=== PATIENT | male | born 1940 | race Hispanic/Latino ===

== ENCOUNTER 2017-09-27 00:35 | Observation (INO) | payer MEDICARE ==
[~2017-09-27] VITALS: Ht 172.7 cm; Wt 95.3 kg
[~2017-09-27 00:35] MED LIST: AMIODARONE HCL200 MG; AMIODARONE HCL200 MG PO; ASPIRIN81 MG; CARVEDILOL12.5 MG PO; CARVEDILOL6.25 MG PO; CEFTIN250 MG PO; COUMADIN2.5 MG PO; COZAAR25 MG PO; FERROUS SULFAT325 MG; FLOMAX0.4 MG PO; FOLIC ACID; HUMULIN N100 UNITS/; IRON159 MG; LASIX40 MG PO; NIFEDICAL XL60 MG PO; NIFEDIPINE ER30 M1 PO; NIFEDIPINE ER60 M1; NORVASC5 MG PO; NOVOLIN R100 UNIT/1 SQ; PANTOPRAZOLE SO40 MG PO; PROCRIT10000 UNIT; SODIUM POL15 GM/60 M; VENOFER IV; VITAMIN B-121000 MCG PO; WARFARIN SODIUM2 MG PO
[2017-09-27] MEDS ORDERED: ASPIRIN 81 MG CHEW TAB PO ONE (00:45)
[2017-09-27 01:04] LABS: BASOPHILS # (AUTO) 0.1 (0.0-0.1); BASOPHILS % 0.7 % (0.0-1.0); BILIRUBIN,URINE NEGATIVE (NEGATIVE); EOSINOPHILS # (AUTO) 0.4 (0.0-0.4); EOSINOPHILS % 4.1 % (0.0-6.0); HEMATOCRIT 28.6 % (38.2-49.6); HEMOGLOBIN 10.1 g/dL (14.0-18.0); KETONES,URINE NEGATIVE (NEGATIVE); LEUKOCYTE ESTERASE ,URINE 2+ (NEGATIVE); LYMPHOCYTES # (AUTO) 0.5 (1.0-3.2); LYMPHOCYTES % 5.6 % (18.0-39.1); MEAN CORPUSCULAR HEMOGLOBIN 31.3 pg (28-32); MEAN CORPUSCULAR HGB CONC 35.3 g/dL (31-35); MEAN CORPUSCULAR VOLUME 88.5 fL (81-99); MONOCYTES # (AUTO) 0.8 (0.2-0.8); MONOCYTES % 8.9 % (4.4-11.3); NEUTROPHILS # (AUTO) 7.1 (2.1-6.9); NEUTROPHILS % 80.4 % (38.7-80.0); NITRITE,URINE NEGATIVE (NEGATIVE); PLATELET COUNT 234 x10e3/uL (140-360); RED BLOOD COUNT 3.23 x10e6/uL (4.3-5.7); RED CELL DISTRIBUTION WIDTH 12.9 % (11.7-14.4); URINE UROBILINOGEN 0.2 mg/dL (0.2 - 1)
[2017-09-27 01:05] LABS: CLARITY,URINE CLOUDY (CLEAR); COLOR,URINE YELLOW (YELLOW); PROTEIN,URINE DIPSTICK 2+ (NEGATIVE)
[2017-09-27 01:14] LABS: INR 0.91; PARTIAL THROMBOPLASTIN TIME 30.1 seconds (23.8-35.5); PROTHROMBIN TIME 12.7 seconds (11.9-14.5)
[2017-09-27 01:16] LABS: BACTERIA,URINE MANY /HPF; EPITHELIAL CELLS,URINE FEW /LPF; WBC,URINE (MAN) >50 /HPF (0-5)
--- NOTE | 2017-09-27 01:24 | Diagnostic Imaging Report ---
CHEST 2 VIEWS, Technique: CHEST 2 VIEWS Comparison: 07/23/2017 Clinical history: \S\PALPITATIONS, H/O AFIB CHF DISCUSSION: Stable mild cardiomegaly. Likely several calcified lung granulomas. No consolidation or edema. No pleural effusion or pneumothorax. IMPRESSION: Cardiomegaly without overt edema or consolidation. Signed by: Dr Micaela Huynh MD on 09/27/2017 1:55 AM
[2017-09-27 01:25] LABS: ALBUMIN 3.4 g/dL (3.5-5.0); ALBUMIN/GLOBULIN RATIO 0.7 (0.8-2.0); CALCIUM 8.1 mg/dL (8.4-10.2); MAGNESIUM 1.9 MG/DL (1.3-2.1)
[2017-09-27 01:31] LABS: CREATINE KINASE MB 2.5 ng/mL (0.00-5.00); TROPONIN I 0.024 ng/mL (0-0.300)
[2017-09-27] MEDS ORDERED: CEFTRIAXONE SOD 1 GM in WATER STERILE 10ML VIAL 10 ML IV STA (02:11)
[2017-09-27] MEDS ORDERED: CEFTRIAXONE SOD 1 GM VIAL IV SCH (02:15)
[2017-09-27] MEDS ORDERED: CEFTRIAXONE SOD 1 GM VIAL IV ONE (02:30)
[2017-09-27] MEDS ORDERED: DEXTROSE 50% SYRINGE 50 ML IV PRN (03:45)
[2017-09-27 04:26] VITALS: BP 145/78
[2017-09-27 05:06] VITALS: BP 145/63
[2017-09-27] MEDS: INSULIN REGULAR, HUMAN 100 UNIT/1 ML 3ML VIAL SQ SCH ×4 (07:30→20:29)
[2017-09-27 08:00] VITALS: BP 145/67
[2017-09-27] MEDS ORDERED: SODIUM CHLORIDE 0.9% 1000ML 1,000 ML IV SCH (08:00)
[2017-09-27] MEDS: AMIODARONE HCL 200 MG TAB PO SCH (08:23)
[2017-09-27] MEDS: CARVEDILOL 12.5 MG TAB PO SCH ×2 (08:24→16:58)
[2017-09-27] MEDS ORDERED: ASPIRIN 81 MG ENTERIC COATED PO SCH (09:00)
[2017-09-27] MEDS ORDERED: FUROSEMIDE 40 MG TAB PO SCH (09:00)
[2017-09-27 09:38] LABS: TROPONIN I 0.019 ng/mL (0-0.300)
--- NOTE | 2017-09-27 10:35 | History and Physical ---
He is a 76-year-old male patient of mine who presented to the emergency room with a complaint of palpitation. HISTORY OF PRESENT ILLNESS: Mr. Emmett Cuevas is a 76-year-old male patient with a significant medical history of atrial fibrillation, diabetes mellitus, hypertension, hypertensive heart disease, chronic renal failure for right nephrectomy and anemia of chronic disease and history of intermittent GI bleed. Presented to the emergency room with a complaint of sudden onset palpitation. . ALLERGIES: MEPERIDINE. PAST MEDICAL HISTORY: Diabetes mellitus, hypertension, atrial fibrillation, coronary artery disease. MEDICATIONS: See from the list. FAMILY HISTORY: Diabetes, hypertension. REVIEW OF SYSTEMS: Palpitations and dizziness. PHYSICAL EXAMINATION GENERAL: He is an elderly male patient lying in bed. Not in acute distress. VITAL SIGNS: Temperature 97, pulse rate 73, blood pressure 145/67, respiration 18. HEENT EXAM: Normocephalic, atraumatic. NECK: No JVD. No lymphadenopathy. LUNGS: Bilateral equal air entry. Occasional basal rales present. HEART: S1, S2, regular. Systolic murmur present. ABDOMEN: Soft, bowel sounds are present. NEUROLOGIC: No focal neurological deficit. ADMITTING PATIENT DIAGNOSES: 1. Atrial fibrillation with rapid ventricular rate. 2. Hyponatremia. 3. Acute on chronic renal failure. 4. Diabetes mellitus. 5. Hypertension. 6. Hypertensive heart disease. LABS: Patient's sodium level is 120, creatinine 5, hemoglobin 10.1. PLAN: Patient was admitted with the above diagnoses. Will diurese patient with Lasix. Will obtain cardiology and nephrology consults. Patient will be monitored in the telemetry unit under observation. Job#: [id number] HERNANDEZ
--- NOTE | 2017-09-27 11:33 | Diagnostic Imaging Report ---
PROCEDURE:US RETROPERITONEAL ( KIDNEY ). COMPARISON:[facility], US, US RETROPERITONEAL ( KIDNEY )., 07/24/2017, 11:31. INDICATIONS:Elevated Creatinine TECHNIQUE: Correa scale and color Doppler ultrasound kidneys FINDINGS: Right: Nephrectomy. Left: 13.1 x 6.6 x 5.7 cm. Cortical thickness 2 cm The left kidney demonstrates normal parenchymal echogenicity and contour. No hydronephrosis. Normal urinary bladder. Prostate volume 30 mL. CONCLUSION: 1. No acute abnormality of the left kidney. 2. Right nephrectomy. Dictated by: Jeff Guerrero M.D. on 09/27/2017 at 11:40 Electronically approved by: Jeff Guerrero M.D. on 09/27/2017 at 11:40
[2017-09-27 12:06] VITALS: BP 157/72
[2017-09-27 15:58] VITALS: BP 145/77
--- NOTE | 2017-09-27 16:33 | Consultation ---
DATE OF CONSULTATION: September 27, 2017 CARDIOLOGY CONSULTATION REQUESTING PHYSICIAN: Dr. Luiz Andrade. REASON FOR CONSULTATION: Paroxysmal AFib. HISTORY OF PRESENT ILLNESS: This is a 76-year-old male that presented with palpitation. According to the patient, he started having palpitation and shortness of breath today that he decided to come into the emergency room for evaluation. He has a history of AFib, had a SHIRA with cardioversion in January, and he went back to normal sinus rhythm. He was also on Coumadin, which was stopped due to GI bleed and anemia. He stopped taking his amiodarone, and he goes in AFib and back to sinus front and back. He denies any chest pain, any dizziness or diaphoresis. Troponin was negative. EKG showed AFib and normal sinus rhythm. His BNP is 1071. PAST MEDICAL HISTORY: Hypertension, diabetes, AFib, renal cancer, GI bleed, anemia. PAST SURGICAL HISTORY: Right nephrectomy and left leg surgery due to staph infection. FAMILY HISTORY: Positive for CAD. SOCIAL HISTORY: No smoking, no drinking. MEDICATIONS: See med list. ALLERGIES: HE IS ALLERGIC TO MEPERIDINE. REVIEW OF SYSTEMS: Negative except those mentioned above. PHYSICAL EXAMINATION VITAL SIGNS: Temperature 98, heart rate 77, blood pressure 157/72, respiration 18, oxygen saturation 96% on room air. GENERAL: He is morbidly obese, awake, alert, and oriented x3. HEENT: Mucous membrane moist. NECK: Supple. LUNGS: Bilaterally with decreased breath sounds. CARDIOVASCULAR: Irregular. ABDOMEN: Soft. NEUROLOGICAL: Intact. EXTREMITIES: With no edema. LABS: Sodium 128, potassium 4.0, chloride 99, CO2 17, BUN 52, creatinine 5.0, glucose 110. White blood cell 8.77, hemoglobin 10.1, hematocrit 28.6, platelet 234. PT 12.7, PTT 30.1, INR 0.91. IMPRESSION 1. Paroxysmal atrial fibrillation. 2. Chronic kidney disease. 3. Fluid overload. 4. Systolic congestive heart failure. 5. Hypertension. 6. Diabetes. 7. History of anemia. 8. Hyponatremia. ASSESSMENT/PLAN: He had a SHIRA in January with EF 35% to 40%. His heart rate fluctuates from AFib to normal sinus rhythm. Will continue amiodarone and beta dvaid. Possible anticoagulation before discharge. His BNP is 1071. Will go ahead and hold the IV fluid. Further cardiac workup pending clinical course. Thank you for this consultation. Dictated by: Jannette Hyman NP Job#: [id number] EV
[2017-09-27] MEDS: FERROUS SULFATE 325 MG TAB PO SCH (16:59)
[2017-09-27] MEDS ORDERED: NIFEDIPINE CR 30 MG TAB PO SCH (17:00)
[2017-09-27 18:28] LABS: CREATINE KINASE MB 1.7 ng/mL (0.00-5.00); TROPONIN I 0.012 ng/mL (0-0.300)
[2017-09-27] MEDS ORDERED: DEXTROSE 5%/0.45% SOD CHL 1,000 ML IV SCH (18:45)
--- NOTE | 2017-09-27 19:15 | Consultation ---
DATE OF CONSULTATION: September 27, 2017 HISTORY OF PRESENT ILLNESS: Mr. Emmett Cuevas is known to our nephrology service. Has existing history of chronic kidney disease, stage 4 and possibly 5 admitted with shortness of breath. Found to have hyponatremia. Renal consult for management of kidney failure. Currently, awake, alert and sitting up in no apparent distress. Denies any nausea, vomiting or shortness of breath. Chest x-ray shows evidence of cardiomegaly with mild increased vascular markings bilaterally and possible atelectasis. Labs show a sodium of 128, potassium 4, bicarbonate 17, creatinine 5. White count 8.77, hemoglobin 10.1. Patient's is by the bedside. He is scheduled for an AV fistula placement as an outpatient. He has had prior history of hypertension, type 2 diabetes, peripheral neuropathy, and evidence of end-organ damage due to type 2 diabetes, congestive heart failure, left ventricular hypertrophy, and diabetic nephropathy. Most recent labs show white count 5.31 with a hemoglobin 9.8. Sodium is as mentioned 128, potassium 4, bicarb 17, creatinine 5. INR 0.91. LFTs within normal limits. Also, has underlying history of atrial fibrillation. He has had prior echocardiogram. Results, I am unable to retrieve. ALLERGIES: MEPERIDINE. CURRENT MEDICATIONS: Please see MAR for details. 1. Regular insulin. 2. Pantoprazole. 3. Nifedipine 60 b.i.d. 4. Lasix 40 mg p.o. daily, which I am going to stop. 5. Ceftriaxone. 6. Aspirin. 7. Amiodarone 200 mg daily. 8. Was receiving IV normal saline, which I am going to stop at this point in time. SOCIAL HISTORY: Patient does not smoke or drink. FAMILY HISTORY: Significant for hypertension and type 2 diabetes. PHYSICAL EXAMINATION GENERAL: Awake, alert and sitting up in no apparent distress. and nurse by bedside. VITALS: At the moment, has a blood pressure of 145/77, pulse rate 98, afebrile, respiratory rate 18, oxygen saturation 98% room air. HEAD AND NECK: Cornea clear. Oral mucosa dry. LUNGS: Occasional rales in right lower zone. No clear-cut rales noted. HEART: S1 and S2 audible. ABDOMEN: Otherwise soft and nontender. LOWER EXTREMITY EXAMINATION: Shows trace ankle edema. IMPRESSION: Advanced kidney failure, most likely end-stage renal disease. Medications reviewed. Blood pressure stable. Has evidence of distal renal tubular acidosis. Will start sodium bicarbonate. Will resume gentle intravenous fluids. Discussed with the patient. Renal replacement therapy is discussed if condition does not improve and renal function does not improve with hydration and medication adjustments. He may require dialysis. Will obtain 24-hour urine for creatinine clearance and proteins. Job#: [id number] MULUGETA
[2017-09-27 20:12] VITALS: BP 137/68
[2017-09-27] MEDS: SODIUM BICARBONATE 650 MG TAB PO SCH (20:29)
[2017-09-28] MEDS ORDERED: CLONIDINE HCL 0.1 MG TAB PO PRN
[2017-09-28 00:09] VITALS: BP 196/88
[2017-09-28 01:43] VITALS: BP 187/86
[2017-09-28 04:59] VITALS: BP 195/86
[2017-09-28 05:26] VITALS: BP 135/70
[2017-09-28 06:30] LABS: BASOPHILS % 0.7 % (0.0-1.0); EOSINOPHILS # (AUTO) 0.3 (0.0-0.4); EOSINOPHILS % 4.2 % (0.0-6.0); LYMPHOCYTES # (AUTO) 0.4 (1.0-3.2); LYMPHOCYTES % 7.4 % (18.0-39.1); MEAN CORPUSCULAR HEMOGLOBIN 31.3 pg (28-32); MEAN CORPUSCULAR HGB CONC 34.5 g/dL (31-35); MEAN CORPUSCULAR VOLUME 90.9 fL (81-99); MONOCYTES # (AUTO) 0.8 (0.2-0.8); MONOCYTES % 12.9 % (4.4-11.3); NEUTROPHILS # (AUTO) 4.4 (2.1-6.9); NEUTROPHILS % 74.1 % (38.7-80.0); PLATELET COUNT 215 x10e3/uL (140-360); RED BLOOD COUNT 3.19 x10e6/uL (4.3-5.7); RED CELL DISTRIBUTION WIDTH 13.2 % (11.7-14.4)
[2017-09-28 06:59] LABS: ALBUMIN 2.8 g/dL (3.5-5.0); ALBUMIN/GLOBULIN RATIO 0.7 (0.8-2.0); ANION GAP 13.4 mmol/L (8-16); CALCIUM 8.1 mg/dL (8.4-10.2); CREATININE, SERUM 4.46 mg/dL (0.72-1.25); POTASSIUM 3.4 mmol/L (3.5-5.1)
[2017-09-28 07:18] LABS: CHOL/HDL RATIO 4.7 (3.9-4.7)
[2017-09-28 08:05] VITALS: BP 133/60
[2017-09-28] MEDS: INSULIN REGULAR, HUMAN 100 UNIT/1 ML 3ML VIAL SQ SCH (08:25)
[2017-09-28] MEDS: FERROUS SULFATE 325 MG TAB PO SCH (08:30)
[2017-09-28] MEDS: CARVEDILOL 12.5 MG TAB PO SCH (08:31)
[2017-09-28] MEDS: SODIUM BICARBONATE 650 MG TAB PO SCH (08:32)
[2017-09-28] MEDS: AMIODARONE HCL 200 MG TAB PO SCH (08:32)
[2017-09-28] MEDS ORDERED: POTASSIUM CHLORIDE 20 MEQ TAB CR PO ONE (08:45)
[2017-09-28] MEDS ORDERED: ASPIRIN 81 MG CHEW TAB PO SCH (09:00)
[2017-09-28] MEDS ORDERED: CYANOCOBALAMIN 1,000 MCG TAB PO SCH (09:00)
[2017-09-28] MEDS ORDERED: PANTOPRAZOLE SOD 40 MG TABEC PO SCH (09:00)
[2017-09-28 11:30] VITALS: BP 111/55
--- NOTE | 2017-09-28 12:30 | Discharge Summary ---
A 76-year-old male patient presented with palpitations. ADMITTING PATIENT DIAGNOSES 1. Paroxysmal atrial fibrillation with tachycardia with rapid ventricular rate. 2. Acute on chronic diastolic congestive heart failure. 3. Acute on chronic renal failure. 4. Diabetes mellitus. 5. Hypertension. 6. Hypertensive heart disease. 7. History of gastrointestinal bleed. 8. History of anemia of chronic disease. 9. History of renal cancer with previous nephrectomy. HOSPITAL COURSE: The patient was admitted with the above diagnoses. The patient was monitored in the telemetry cardiac unit and EKG was done and CO was ruled out. Cardiology and Nephrology were . On laboratory examination, patient found to have a UTI and gram negative Bacillus. Urine culture is pending. Patient needs to be referred for hemodialysis. Patient ____ outpatient to be the hemodialysis treatment by Dr. Carbajal. The patient needs to continue to follow up as outpatient with the auto body detailer and will discharge patient on amiodarone. Patient has EF of 35% to 40%. Patient has systolic CHF. Patient was started on anticoagulation in the past, but then, because of the other times he had been requiring multiple blood transfusions, anticoagulation was discontinued twice. The patient will be followed as an outpatient with Cardiology and Nephrology. Job#: [id number] DAVID
== END 2017-09-28 11:52 | disposition home or self-care (01) ==
LOC: ER 00:35 → IMCU 03:52
PROVIDERS: ADMIT Internal Medicine; ATTEND Internal Medicine
DX: I48.0 Paroxysmal atrial fibrillation (principal); R00.2 Palpitations; N39.0 Urinary tract infection, site not specified; E87.1 Hypo-osmolality and hyponatremia; N17.9 Acute kidney failure, unspecified; E11.22 Type 2 diabetes mellitus with diabetic chronic kidney disease; N25.89 Other disorders resulting from impaired renal tubular function; Z79.4 Long term (current) use of insulin; I13.2 Hypertensive heart and chronic kidney disease with heart failure and with stage 5 chronic kidney disease, or end stage renal disease; N18.6 End stage renal disease; Z99.2 Dependence on renal dialysis; B96.89 Other specified bacterial agents as the cause of diseases classified elsewhere; I50.43 Acute on chronic combined systolic (congestive) and diastolic (congestive) heart failure
CPT/HCPCS: 36415 ×2; 71020; 76770; 80053 ×2; 80061; 81001; 82550; 82553; 82575; 82948 ×2; 83690; 83735; 83880 ×2; 84484; 85025 ×2; 85610; 85730; 87086; 87186; 93005 ×2; 99284; G0378 ×2; J0696; J7030; 81050

== ENCOUNTER → 2017-11-09 | Outpatient (CLI) | payer MEDICARE ==
[~2017-11-09] MED LIST changes: +CEFUROXIME250 MG PO; +CETIRIZINE-PSE1 EACH; +KEFLEX500 MG; +NIFEDIPINE ER90 M1 PO
--- NOTE | 2017-11-09 17:33 | Diagnostic Imaging Report ---
PROCEDURE: Frontal and lateral views of the chest. COMPARISON: Chest radiograph 09/27/2017. INDICATIONS: SOB/COUGH FINDINGS: Lines/tubes: None. Lungs/Pleura: Small bilateral pleural effusions with adjacent bibasilar opacities likely representing atelectasis. Stable punctate calcified granuloma or bone island overlying the right mid lung. No pneumothorax. Heart and mediastinum: The heart and the mediastinum are normal. Bones: No acute bony abnormality. IMPRESSION: Small bilateral pleural effusions with adjacent atelectasis. Superimposed consolidation cannot be excluded. Dictated by: Timbo Lanza M.D. on 11/09/2017 at 17:42 Electronically approved by: Timbo Lanza M.D. on 11/09/2017 at 17:42
== END ==
LOC: RAD 17:02
PROVIDERS: ATTEND Internal Medicine
DX: J40 Bronchitis, not specified as acute or chronic (principal)
CPT/HCPCS: 71020

== ENCOUNTER 2017-11-20 09:31 | Inpatient (IN) | payer MEDICARE ==
[~2017-11-20] VITALS: Ht 172.7 cm; Wt 92.1 kg
[~2017-11-20 09:31] MED LIST changes: -CEFUROXIME250 MG PO; -CETIRIZINE-PSE1 EACH; -KEFLEX500 MG; -NIFEDIPINE ER90 M1 PO
[2017-11-20 10:27] LABS: BASOPHILS # (AUTO) 0.1 (0.0-0.1); BASOPHILS % 1.1 % (0.0-1.0); EOSINOPHILS # (AUTO) 0.3 (0.0-0.4); EOSINOPHILS % 3.8 % (0.0-6.0); HEMATOCRIT 28.9 % (38.2-49.6); HEMOGLOBIN 9.1 g/dL (14.0-18.0); LYMPHOCYTES # (AUTO) 0.4 (1.0-3.2); LYMPHOCYTES % 5.6 % (18.0-39.1); MEAN CORPUSCULAR HEMOGLOBIN 30.5 pg (28-32); MEAN CORPUSCULAR HGB CONC 31.5 g/dL (31-35); MONOCYTES # (AUTO) 0.5 (0.2-0.8); MONOCYTES % 7.6 % (4.4-11.3); NEUTROPHILS # (AUTO) 5.4 (2.1-6.9); NEUTROPHILS % 81.4 % (38.7-80.0); PLATELET COUNT 241 x10e3/uL (140-360); RED BLOOD COUNT 2.98 x10e6/uL (4.3-5.7); RED CELL DISTRIBUTION WIDTH 13.7 % (11.7-14.4)
[2017-11-20] MEDS ORDERED: FUROSEMIDE INJ 10 MG/ML 4 ML VIAL IV ONE (10:30)
[2017-11-20 10:40] LABS: INR 1.06; PARTIAL THROMBOPLASTIN TIME 26.7 seconds (23.8-35.5); PROTHROMBIN TIME 14.3 seconds (11.9-14.5)
[2017-11-20 10:48] LABS: ALBUMIN 3.3 g/dL (3.5-5.0); ALBUMIN/GLOBULIN RATIO 0.7 (0.8-2.0); CALCIUM 8.4 mg/dL (8.4-10.2); CREATININE, SERUM 5.07 mg/dL (0.72-1.25)
[2017-11-20 10:56] LABS: CREATINE KINASE MB 1.3 ng/mL (0.00-5.00); TROPONIN I 0.007 ng/mL (0-0.300)
--- NOTE | 2017-11-20 11:12 | Diagnostic Imaging Report ---
EXAMINATION: CHEST SINGLE (PORTABLE) INDICATION: Shortness of breath \S\SOB \S\[id number] \S\1015 \S\Y COMPARISON: Chest radiograph from 11/09/2017 FINDINGS: AP view TUBES and LINES: None. LUNGS: Lungs are well inflated. Bibasilar atelectasis, unchanged. Worsening bilateral central pulmonary vascular congestion. PLEURA: Small bilateral pleural effusion, right greater than left, mildly increased on the right. HEART AND MEDIASTINUM: Stable mild enlargement of the cardiac silhouette. Tortuous thoracic aorta. BONES AND SOFT TISSUES: No acute osseous lesion. Soft tissues are unremarkable. UPPER ABDOMEN: No free air under the diaphragm. IMPRESSION: Worsening central pulmonary vascular congestion and bilateral small pleural effusion. Signed by: Dr. Cinthia Sauceda M.D. on 11/20/2017 11:09 AM
[2017-11-20 11:54] LABS: BILIRUBIN,URINE NEGATIVE (NEGATIVE); KETONES,URINE NEGATIVE (NEGATIVE); LEUKOCYTE ESTERASE ,URINE NEGATIVE (NEGATIVE); NITRITE,URINE NEGATIVE (NEGATIVE); URINE UROBILINOGEN 0.2 mg/dL (0.2 - 1)
[2017-11-20 11:56] LABS: CLARITY,URINE SL CLOUDY (CLEAR); COLOR,URINE YELLOW (YELLOW); PROTEIN,URINE DIPSTICK 2+ (NEGATIVE)
[2017-11-20 12:13] LABS: RBC,URINE 0-5 /HPF (0-5); WBC,URINE (MAN) 0-5 /HPF (0-5)
[2017-11-20 12:14] LABS: BACTERIA,URINE RARE /HPF; EPITHELIAL CELLS,URINE FEW /LPF
[2017-11-20] MEDS ORDERED: CETIRIZINE-PSE1 EACH (12:38)
[2017-11-20] MEDS ORDERED: CEFUROXIME250 MG PO (12:38)
[2017-11-20] MEDS ORDERED: KEFLEX500 MG (12:38)
[2017-11-20] MEDS ORDERED: NIFEDIPINE ER90 M1 PO (12:38)
[2017-11-20] MEDS ORDERED: SODIUM CHLORIDE FLUSH 10 ML SYR INJ PRN (14:00)
[2017-11-20] MEDS ORDERED: DEXTROSE 50% SYRINGE 50 ML IV PRN (15:00)
--- NOTE | 2017-11-20 15:57 | History and Physical ---
CHIEF COMPLAINT 1. Worsening of shortness of breath. 2. Fatigue and weakness. HPI: This is a 77-year-old male with a past medical history of hypertension, hypertensive heart disease, diabetes, congestive heart failure, chronic renal failure, was in his usual state of health until the patient has over the last 2 days increasing shortness of breath and mild leg edema. No chest pain. No abdominal pain. No nausea or vomiting. No hematemesis. No melena. No headache. No back ache. No burning on urination. Patient has increasing shortness of breath gradually. ALLERGIES: MEPERIDINE. PAST MEDICAL HISTORY 1. Diabetes mellitus. 2. Hypertension. 3. Atrial fibrillation. 4. Coronary artery disease. 5. Chronic renal failure. 6. Congestive heart failure. PAST SURGICAL HISTORY: None. HABITS: Denies smoking. Denies alcohol use. FAMILY HISTORY: Diabetes and hypertension. SOCIAL HISTORY: Patient lives with family. MEDICATION LIST: Reviewed. REVIEW OF SYSTEMS GENERAL: Denies fatigue and weakness. HEENT: No diplopia. No blurring of vision. CARDIOPULMONARY: No chest pain. Has some shortness of breath and cough. ALIMENTARY SYSTEM: No nausea or vomiting. No abdominal pain. GENITOURINARY: No dysuria. No hematuria. MUSCULOSKELETAL: No joint pain. CENTRAL NERVOUS SYSTEM: No focal weakness. PHYSICAL EXAMINATION GENERAL: This is a 77-year-old male who is alert and oriented times 3, in no apparent distress. VITAL SIGNS: Temperature 95.7, pulse 63, respiratory rate 28, blood pressure 119/66. HEENT: Within normal limits. No JVD. No carotid bruits. SKIN: Dry. No clubbing. No cyanosis. NECK: Supple. LUNGS: Clear. Air entry fair. Decreased breath sounds at both bases. HEART: S1 and S2. Regular rate and rhythm. No S3, S4 or murmur. ABDOMEN: Soft, nontender. No guarding. No rigidity. EXTREMITIES: +1 peripheral edema. Peripheral pulses are +1. HIGHWAY MAINTENANCE WORKER: Grossly nonfocal. IMAGING: Chest x-ray shows worsening of congestive heart failure with bilateral pleural effusion. EKG shows junctional rhythm at 61 per minute. LABS: Sodium 142, potassium 5, BUN 35, creatinine 5.07. LFTs normal. BNP 1153. Lactic acid 15.16. CK-MB normal. Urine is normal. White count 6.62, hemoglobin 9.1, hematocrit 28.9, and platelet 241. ASSESSMENT 1. [id number] congestive heart failure. 2. Worsening of chronic renal failure. 3. History of atrial fibrillation. 4. Anemia. 5. Hypertension. 6. Diabetes mellitus. 7. Coronary artery disease. PLAN: Admit patient to telemetry. Lasix 40 IV b.i.d. Renal consult with Dr. Gonsalves. Cardiology consult with Dr. Garcia. Labs in the morning. Continue blood sugar checkup a.c. and h.s. with sliding scale. Continue all other home medicines. Job#: [id number] SAK
[2017-11-20] MEDS ORDERED: FUROSEMIDE INJ 10 MG/ML 4 ML VIAL IV SCH (17:00)
[2017-11-20] MEDS: INSULIN LISPRO 100 UNIT/1 ML 3ML VIAL SQ SCH ×2 (17:32→20:47)
[2017-11-20] MEDS: NIFEDIPINE CR 30 MG TAB PO SCH (17:32)
[2017-11-20] MEDS: FERROUS SULFATE 325 MG TAB PO SCH (17:32)
[2017-11-20] MEDS: SODIUM BICARBONATE 650 MG TAB PO SCH (17:32)
[2017-11-20] MEDS: FUROSEMIDE INJ 10 MG/ML 4 ML VIAL IV SCH (17:32)
[2017-11-20 17:34] VITALS: BP 129/71
[2017-11-20 17:40] VITALS: BP 129/71
[2017-11-20 19:16] VITALS: BP 129/71
[2017-11-20 20:51] VITALS: BP 133/60
--- NOTE | 2017-11-20 21:41 | Consultation ---
DATE OF CONSULTATION: November 20, 2017 REQUESTING PHYSICIAN: Stephen Chavez MD REASON FOR CONSULTATION: CKD 5. Thank you for allowing us to participate in Mr. Mike rojas. This is a 77-year-old male with a history of CKD 5, single kidney, removed many years ago. He has a history of progressive decline in kidney function. He had been getting ready for dialysis. The outpatient creatinine 1 to 2 months was already in the 5 range. He had started feeling weak, more dyspnea. Chest x-ray showed fluid overload. Serum CO2 was 18. O2 saturations were found to be low additionally. Creatinine was still in the 5 range. He has baseline diabetes, but has not required medications according to him. He tries to avoid salt. He has not noticed any definite weight change. He does feel better sitting up. Potassium is 5. PAST HISTORY 1. Known single kidney. 2. History of hypertension. 3. CKD, which has been progressive. 4. Hypertensive heart disease. HOME MEDICATIONS 1. Amiodarone 200 a day. 2. Cefuroxime recent course. 3. Cyanocobalamin. 4. Lasix 40 p.o. daily. 5. Nifedipine 90 mg b.i.d. SOCIAL HISTORY: Currently he is not smoking or abusing alcohol. He is . FAMILY HISTORY: Hypertension. REVIEW OF SYSTEMS CONSTITUTIONAL: No fever or chills. RESPIRATORY: Minimal cough. Dyspnea. GI: Denying nausea or vomiting. CARDIAC: Has orthopnea. NEURO: Denying headache or seizures. MUSCULOSKELETAL: Occasional arthralgias. REST OF REVIEW: Negative. PHYSICAL EXAMINATION GENERAL: Lying in bed at 45 degrees or so. No definite distress. Nasal cannula in place. VITALS: Heart rate is 98 and sounds regular. Blood pressure 125/76. The O2 sat is 100% on nasal cannula. Temperature is 95.7. HEENT: Atraumatic. NECK: Neck veins are 7 cm. CHEST: Faint crackles at the bases. CARDIAC: Normal heart tones. Rhythm sounds regular at this time, question S4. ABDOMEN: Benign. Small hernia. Liver palpable at the right costal margin. EXTREMITIES: Trace pedal edema. NEURO: Alert and appropriate. Speech is normal. Moving all 4 limbs. SKIN: Intact on exposed areas. LABS: Sodium 142, K 5.0, chloride 115, bicarb 18, creatinine 5, BUN 35. UA shows some proteinuria. Hemoglobin is 9.1. ASSESSMENT 1. Chronic kidney disease 5, probably approaching end-stage renal disease with fluid overload. 2. Anemia of chronic kidney disease. 3. Hypertension. 4. Fluid overload. PLAN 1. Agree with IV diuresis. If he does not improve with this, however, will start renal replacement therapy. He is agreeable to this. 2. Add p.o. sodium bicarbonate. 3. Check iron stores. 4. Request vascular surgery to see as he needs vascular access anyway. He has already had vein mapping at the outpatient vascular center. 5. Will follow along with you. Job#: [id number]
[2017-11-20 22:43] LABS: CREATINE KINASE MB 1.5 ng/mL (0.00-5.00); TROPONIN I 0.014 ng/mL (0-0.300)
[2017-11-20 23:48] VITALS: BP 128/59
[2017-11-21 05:09] VITALS: BP 132/55
--- NOTE | 2017-11-21 06:30 | Diagnostic Imaging Report ---
EXAM: CHEST SINGLE (PORTABLE), AP 1 view DATE: 11/21/2017 7:00 AM Time stamp on exam: 0527 hours INDICATION: Temporary dialysis catheter COMPARISON: AP view of the chest November 20, 2017 FINDINGS: LINES/TUBES: None LUNGS: Interval worsening pulmonary edema PLEURA: Enlarging bilateral pleural effusions HEART AND MEDIASTINUM: Enlarged cardiomediastinal silhouette BONES AND SOFT TISSUES: No acute findings. IMPRESSION: Worsening fluid overload with pulmonary edema and bilateral pleural effusions Signed by: Dr. Brit Gutierrez M.D. on 11/21/2017 6:27 AM
[2017-11-21 06:39] LABS: BASOPHILS # (AUTO) 0.1 (0.0-0.1); BASOPHILS % 0.9 % (0.0-1.0); EOSINOPHILS # (AUTO) 0.2 (0.0-0.4); EOSINOPHILS % 3.7 % (0.0-6.0); HEMATOCRIT 27.1 % (38.2-49.6); HEMOGLOBIN 8.5 g/dL (14.0-18.0); LYMPHOCYTES # (AUTO) 0.4 (1.0-3.2); LYMPHOCYTES % 7.4 % (18.0-39.1); MEAN CORPUSCULAR HEMOGLOBIN 30.6 pg (28-32); MEAN CORPUSCULAR HGB CONC 31.4 g/dL (31-35); MEAN CORPUSCULAR VOLUME 97.5 fL (81-99); MONOCYTES # (AUTO) 0.5 (0.2-0.8); MONOCYTES % 9.1 % (4.4-11.3); NEUTROPHILS # (AUTO) 4.2 (2.1-6.9); NEUTROPHILS % 78.5 % (38.7-80.0); PLATELET COUNT 206 x10e3/uL (140-360); RED BLOOD COUNT 2.78 x10e6/uL (4.3-5.7); RED CELL DISTRIBUTION WIDTH 13.6 % (11.7-14.4)
[2017-11-21 07:18] LABS: ANION GAP 12.6 mmol/L (8-16); CALCIUM 8.2 mg/dL (8.4-10.2); CREATININE, SERUM 5.24 mg/dL (0.72-1.25); POTASSIUM 4.6 mmol/L (3.5-5.1)
[2017-11-21 07:21] LABS: CREATINE KINASE MB 1.3 ng/mL (0.00-5.00); TROPONIN I 0.007 ng/mL (0-0.300)
[2017-11-21] MEDS: INSULIN LISPRO 100 UNIT/1 ML 3ML VIAL SQ SCH ×4 (07:30→20:35)
[2017-11-21 07:33] LABS: PHOSPHORUS 4.1 MG/DL (2.3-4.7)
[2017-11-21] MEDS: FOLIC ACID 400 MCG PO SCH (07:43)
[2017-11-21 07:53] LABS: FERRITIN 70.13 ng/mL (21.81-274.66)
[2017-11-21 08:41] VITALS: BP 155/68
[2017-11-21] MEDS: AMIODARONE HCL 200 MG TAB PO SCH (08:45)
[2017-11-21] MEDS: CYANOCOBALAMIN 1,000 MCG TAB PO SCH (08:45)
[2017-11-21] MEDS: FERROUS SULFATE 325 MG TAB PO SCH ×2 (08:45→16:44)
[2017-11-21] MEDS: FUROSEMIDE INJ 10 MG/ML 4 ML VIAL IV SCH ×2 (08:45→16:44)
[2017-11-21] MEDS: NIFEDIPINE CR 30 MG TAB PO SCH ×2 (08:45→16:44)
[2017-11-21] MEDS: SODIUM BICARBONATE 650 MG TAB PO SCH ×2 (08:45→16:44)
[2017-11-21 09:04] VITALS: BP 155/68
[2017-11-21 12:31] LABS: BAND NEUTROPHILS % (MANUAL) 1 %; EOSINOPHILS % (MANUAL) 3 % (0-7); LYMPHOCYTES % (MANUAL) 12 % (19-48); MONOCYTES % (MANUAL) 7 % (3.4-9.0); NEUTROPHILS % (MANUAL) 77 % (40-74); PLATELET ESTIMATE ADEQUATE; PLATELET MORPHOLOGY COMMENT NORMAL; RBC MORPHOLOGY COMMENT NORMAL
[2017-11-21 12:33] VITALS: BP 135/65
[2017-11-21 13:33] LABS: CHOL/HDL RATIO 5.7 (3.9-4.7); MAGNESIUM 2.4 MG/DL (1.3-2.1); PHOSPHORUS 4.1 MG/DL (2.3-4.7)
[2017-11-21 13:52] LABS: THYROID STIMULATING HORMONE 3.283 uIU/mL (0.350-4.940)
[2017-11-21 16:54] VITALS: BP 125/63
[2017-11-21] MEDS ORDERED: PANTOPRAZOLE SOD 40 MG TABEC PO ONE (17:30)
[2017-11-21 20:00] VITALS: BP 135/66
[2017-11-22 00:49] VITALS: BP 124/59
[2017-11-22 05:28] VITALS: BP 127/59
[2017-11-22] MEDS: INSULIN LISPRO 100 UNIT/1 ML 3ML VIAL SQ SCH ×4 (07:30→20:36)
[2017-11-22 08:01] LABS: ALBUMIN 2.8 g/dL (3.5-5.0); ALBUMIN/GLOBULIN RATIO 0.7 (0.8-2.0); ANION GAP 13.5 mmol/L (8-16); CALCIUM 8.1 mg/dL (8.4-10.2); CREATININE, SERUM 5.41 mg/dL (0.72-1.25); POTASSIUM 4.5 mmol/L (3.5-5.1)
[2017-11-22 08:20] VITALS: BP 143/65
[2017-11-22] MEDS: FOLIC ACID 400 MCG PO SCH (09:00)
[2017-11-22] MEDS: AMIODARONE HCL 200 MG TAB PO SCH (09:45)
[2017-11-22] MEDS: FUROSEMIDE INJ 10 MG/ML 4 ML VIAL IV SCH ×2 (09:45→18:12)
[2017-11-22] MEDS: NIFEDIPINE CR 30 MG TAB PO SCH ×3 (09:45→20:36)
[2017-11-22] MEDS: PANTOPRAZOLE SOD 40 MG TABEC PO SCH (09:45)
[2017-11-22] MEDS: FERROUS SULFATE 325 MG TAB PO SCH ×2 (09:45→18:12)
[2017-11-22] MEDS: SODIUM BICARBONATE 650 MG TAB PO SCH ×3 (09:45→20:36)
[2017-11-22] MEDS: CYANOCOBALAMIN 1,000 MCG TAB PO SCH (09:45)
[2017-11-22 13:19] VITALS: BP 167/77
[2017-11-22 16:34] VITALS: BP 146/69
[2017-11-22] MEDS ORDERED: ACETAMINOPHEN 325 MG TAB PO PRN (17:00)
[2017-11-22 20:00] VITALS: BP 151/65
[2017-11-23] VITALS (7 sets, daily range): BP systolic 128–151; BP diastolic 63–72
[2017-11-23] MEDS ORDERED: FUROSEMIDE INJ 10 MG/ML 4 ML VIAL IV SCH (06:00)
[2017-11-23 06:56] LABS: BASOPHILS # (AUTO) 0.1 (0.0-0.1); BASOPHILS % 1.1 % (0.0-1.0); EOSINOPHILS # (AUTO) 0.3 (0.0-0.4); EOSINOPHILS % 7.5 % (0.0-6.0); HEMATOCRIT 26.3 % (38.2-49.6); HEMOGLOBIN 8.2 g/dL (14.0-18.0); LYMPHOCYTES # (AUTO) 0.5 (1.0-3.2); LYMPHOCYTES % 11.3 % (18.0-39.1); MEAN CORPUSCULAR HEMOGLOBIN 29.9 pg (28-32); MEAN CORPUSCULAR HGB CONC 31.2 g/dL (31-35); MONOCYTES # (AUTO) 0.6 (0.2-0.8); MONOCYTES % 14.5 % (4.4-11.3); NEUTROPHILS # (AUTO) 2.9 (2.1-6.9); NEUTROPHILS % 65.4 % (38.7-80.0); PLATELET COUNT 203 x10e3/uL (140-360); RED BLOOD COUNT 2.74 x10e6/uL (4.3-5.7); RED CELL DISTRIBUTION WIDTH 13.7 % (11.7-14.4)
[2017-11-23] MEDS: INSULIN LISPRO 100 UNIT/1 ML 3ML VIAL SQ SCH ×4 (07:30→20:53)
[2017-11-23] MEDS: PANTOPRAZOLE SOD 40 MG TABEC PO SCH (07:30)
[2017-11-23 07:32] LABS: ALBUMIN 2.7 g/dL (3.5-5.0); ALBUMIN/GLOBULIN RATIO 0.7 (0.8-2.0); ANION GAP 12.4 mmol/L (8-16); CALCIUM 7.7 mg/dL (8.4-10.2); CREATININE, SERUM 5.57 mg/dL (0.72-1.25); POTASSIUM 4.4 mmol/L (3.5-5.1)
[2017-11-23] MEDS: FERROUS SULFATE 325 MG TAB PO SCH ×2 (08:00→18:00)
[2017-11-23] MEDS: AMIODARONE HCL 200 MG TAB PO SCH (08:32)
[2017-11-23] MEDS: NIFEDIPINE CR 30 MG TAB PO SCH ×2 (08:32→20:52)
--- NOTE | 2017-11-23 08:37 | Consultation ---
DATE OF CONSULTATION: November 23, 2017 REFERRING PHYSICIANS: Dr. Luiz Andrade and Dr. Romeo Griffith The patient is a 77-year-old male with a history of hypertension, hypertensive heart disease, diabetes, congestive heart failure, who now has end-stage renal disease. He is to be started on hemodialysis. He will need access for long-term hemodialysis. He was admitted to the hospital with shortness of breath and swelling of his legs. PAST MEDICAL HISTORY: As stated above, diabetes, hypertension, atrial fibrillation, coronary artery disease, chronic kidney disease, congestive heart failure. He has had no previous surgeries. ALLERGIES: MEPERIDINE. FAMILY HISTORY: Significant for diabetes and hypertension. SOCIAL HISTORY: The patient does not smoke cigarettes or drink alcohol. REVIEW OF SYSTEMS: As stated above. He has no chest pain and no fever. PHYSICAL EXAMINATION VITAL SIGNS: Normal. GENERAL: The patient is awake and alert. HEENT: No scleral icterus. NECK: No masses. LUNGS: Equal breath sounds are clear bilaterally. CARDIAC: Regular rate and rhythm. ABDOMEN: Soft. There is no tenderness and no mass. EXTREMITIES: In the upper extremities, the radial pulse is palpable. Peripheral veins are adequate for fistula. ASSESSMENT: This is a 77-year-old male with now end-stage renal disease who needs access for long-term hemodialysis. PLAN: He is to have a dialysis catheter placed today and dialysis started today. Plan arteriovenous fistula to be done tomorrow. Procedure was explained to the patient. Thank you for asking me to see Mr. Cuevas. Job#: [id number]
[2017-11-23] MEDS: FOLIC ACID 400 MCG PO SCH (09:00)
[2017-11-23] MEDS: SODIUM BICARBONATE 650 MG TAB PO SCH ×2 (09:00→20:52)
[2017-11-23] MEDS: CYANOCOBALAMIN 1,000 MCG TAB PO SCH (09:00)
[2017-11-23] MEDS: FOLIC ACID 1 MG TAB PO SCH (09:00)
[2017-11-23] MEDS ORDERED: LIDOCAINE HCL 2% LOCAL 20 ML VIAL ONE (09:08)
[2017-11-23] MEDS ORDERED: SODIUM CHLORIDE 0.9% 500ML 500 ML ONE ×2 (09:09→09:18)
[2017-11-23] MEDS ORDERED: FENTANYL CITRATE/PF 100MCG/2 ML INJ ONE (09:17)
[2017-11-23] MEDS ORDERED: MIDAZOLAM HCL 2 MG/2 ML VIAL ONE (09:17)
[2017-11-23] MEDS ORDERED: MIDAZOLAM HCL 2 MG/2 ML VIAL IV STA (09:40)
[2017-11-23] MEDS ORDERED: FENTANYL CITRATE/PF 100MCG/2 ML INJ IV ONE (09:45)
--- NOTE | 2017-11-23 11:50 | Diagnostic Imaging Report ---
Tunneled Dialysis Catheter Placement November 1627 Pre-Procedure Diagnosis: End-Stage Renal Disease Post-procedure Diagnosis:End-Stage Renal Disease Employee Health Nurse: Cornel Guerrero Electric Deicer Assembler: None Sedation: Moderate sedation was provided with intravenous fentanyl and Versed. Heart rate, rhythm and oxygen saturation were monitored and real-time by a dedicated interventional radiology nurse under my direct supervision. Blood pressure was monitored in 5 minute increments. 1% lidocaine was used for local anesthesia. Total sedation time: 30 min Radiation Dose: 152.8 cGycm2 (Dose Area Product) Fluoroscopy time: 0.6 minutes Estimate blood loss: <5 mL Blood administered: None Complications: None Implants/Grafts: 16 Czech 23 cm cuffed tunneled dialysis catheter Specimen: None Procedure: Informed consent was obtained and the patient positioned supine in the fluoroscopy suite. A timeout was performed, followed by preliminary ultrasound of the right internal jugular vein (see findings below). The right neck and chest were prepped and draped in standard fashion. Using real-time ultrasound guidance a 21 gauge vascular needle was used to access the right internal jugular vein. An image was stored in the electronic medical record. A wire was advanced across the right atrium under fluoroscopy and the needle exchanged for a peel-away sheath. A skin incision was made inferior to the clavicle and the catheter tunneled to the access site. The catheter was then deployed through the peel-away sheath and positioned with the tip at the atriocaval junction/right atrium. At the end of the procedure the catheter was flushed, packed with heparin solution, secured to the skin and a sterile dressing applied. The patient tolerated the procedure well and without immediate complication. Findings: Patent right internal jugular vein as demonstrated by normal ultrasound compressibility. Impression: Successful placement of a tunneled right internal jugular vein dialysis catheter using ultrasound and fluoroscopic guidance under moderate sedation. This report was generated with voice-recognition technology. Errors in pipe fitter welding can occur. Please interpret accordingly and contact a radiologist if there are any questions regarding the report. Signed by: Dr. Jeff Guerrero M.D. on 11/23/2017 11:47 AM
[2017-11-23] MEDS ORDERED: SODIUM CHLORIDE 0.9% 1000ML 2,000 ML IV PRN (16:30)
[2017-11-23] MEDS ORDERED: MANNITOL 25% 12.5GM/50 ML VIAL IV PRN (16:30)
[2017-11-23] MEDS ORDERED: HEPARIN SOD (PORCINE) 1000 UNIT/ML SDV IV PRN (16:30)
[2017-11-23] MEDS ORDERED: SODIUM CHLORIDE 0.9% 250ML 500 ML IV PRN (16:30)
[2017-11-23] MEDS ORDERED: ALBUMIN HUMAN 12.5GM / 50ML IV PRN (16:30)
[2017-11-23] MEDS: FUROSEMIDE INJ 10 MG/ML 4 ML VIAL IV SCH (18:00)
[2017-11-24] VITALS (8 sets, daily range): BP systolic 100–148; BP diastolic 63–75
[2017-11-24] MEDS: FUROSEMIDE INJ 10 MG/ML 4 ML VIAL IV SCH ×2 (06:26→17:22)
[2017-11-24] MEDS: INSULIN LISPRO 100 UNIT/1 ML 3ML VIAL SQ SCH ×4 (07:30→20:41)
[2017-11-24] MEDS: PANTOPRAZOLE SOD 40 MG TABEC PO SCH (07:30)
[2017-11-24] MEDS: FERROUS SULFATE 325 MG TAB PO SCH ×2 (08:00→17:22)
[2017-11-24 08:18] LABS: BASOPHILS # (AUTO) 0.1 (0.0-0.1); BASOPHILS % 1.6 % (0.0-1.0); EOSINOPHILS # (AUTO) 0.3 (0.0-0.4); EOSINOPHILS % 7.6 % (0.0-6.0); HEMATOCRIT 28.7 % (38.2-49.6); HEMOGLOBIN 9.1 g/dL (14.0-18.0); LYMPHOCYTES # (AUTO) 0.4 (1.0-3.2); LYMPHOCYTES % 8.7 % (18.0-39.1); MEAN CORPUSCULAR HEMOGLOBIN 29.7 pg (28-32); MEAN CORPUSCULAR HGB CONC 31.7 g/dL (31-35); MEAN CORPUSCULAR VOLUME 93.8 fL (81-99); MONOCYTES # (AUTO) 0.6 (0.2-0.8); MONOCYTES % 12.9 % (4.4-11.3); NEUTROPHILS # (AUTO) 3.1 (2.1-6.9); PLATELET COUNT 213 x10e3/uL (140-360); RED BLOOD COUNT 3.06 x10e6/uL (4.3-5.7); RED CELL DISTRIBUTION WIDTH 13.7 % (11.7-14.4)
[2017-11-24 08:26] LABS: INR 1.03
[2017-11-24 08:36] LABS: ALBUMIN 2.8 g/dL (3.5-5.0); ALBUMIN/GLOBULIN RATIO 0.7 (0.8-2.0); CREATININE, SERUM 4.4 mg/dL (0.72-1.25)
[2017-11-24] MEDS: FOLIC ACID 1 MG TAB PO SCH (08:36)
[2017-11-24] MEDS: CYANOCOBALAMIN 1,000 MCG TAB PO SCH (08:36)
[2017-11-24] MEDS: SODIUM BICARBONATE 650 MG TAB PO SCH ×2 (08:36→20:38)
[2017-11-24] MEDS: AMIODARONE HCL 200 MG TAB PO SCH (08:39)
[2017-11-24] MEDS: NIFEDIPINE CR 30 MG TAB PO SCH ×2 (08:39→20:49)
[2017-11-24 08:57] LABS: EOSINOPHILS % (MANUAL) 7 % (0-7); LYMPHOCYTES % (MANUAL) 9 % (19-48); MONOCYTES % (MANUAL) 9 % (3.4-9.0); NEUTROPHILS % (MANUAL) 74 % (40-74)
[2017-11-24 08:58] LABS: ANISOCYTOSIS SLIGHT; HYPOCHROMASIA SLIGHT; PLATELET ESTIMATE ADEQUATE; PLATELET MORPHOLOGY COMMENT NORMAL; RBC MORPHOLOGY COMMENT NORMAL
[2017-11-24] MEDS ORDERED: HEPARIN SOD (PORCINE) 1000 UNIT/ML 30ML ONE (11:54)
[2017-11-24] MEDS ORDERED: HEPARIN SOD (PORCINE) 5,000 UNIT/ML VIAL ONE (11:54)
[2017-11-24] MEDS ORDERED: SODIUM CHLORIDE 0.9% 100 ML 0 ML ONE (11:55)
[2017-11-24] MEDS ORDERED: SODIUM CHLORIDE 0.9% 500ML 500 ML ONE (12:32)
[2017-11-24] MEDS ORDERED: HYDROCODONE/APAP 5MG-325MG TAB PO PRN (13:30)
--- NOTE | 2017-11-24 15:51 | Operative Report ---
DATE OF PROCEDURE: November 24, 2017 PREOPERATIVE DIAGNOSIS: End-stage renal disease. POSTOPERATIVE DIAGNOSIS: End-stage renal disease. OPERATIVE PROCEDURES: Creation of left forearm primary radiocephalic arteriovenous fistula. HEAVY EQUIPMENT SALES MANAGER: None. ANESTHESIA: General. INDICATIONS AND FINDINGS: Patient a 77-year-old male who has end-stage renal disease, needs access for long-term hemodialysis. At surgery there was an adequate cephalic vein in the forearm and a good pulse in the radial artery which was soft. At the end of the procedure, there was a palpable thrill over the fistula, palpable pulse in the radial artery distal to the fistula. TECHNIQUE: After adequate general anesthesia, patient in supine position, the left arm was prepped and draped in sterile fashion with [place] solution. A transverse incision was made over the area of the cephalic vein and radial artery. It was carried down through subcutaneous tissue. Cephalic vein was dissected free proximally and distally. Side branches were ligated with hemoclips. The vein was mobilized as distally as possible. More medially the incision was carried deeper and the radial artery dissected free and controlled with a vessel loop. The cephalic vein was then divided as distally as possible. A number 3 Nakul catheter passed through the vein and passed easily without resistance. The vein was fashioned appropriately for anastomosis. The patient was given 5000 units of intravenous heparin. The radial artery was clamped proximally and distally. Arteriotomy was made. Anastomosis was then made between the end of the vein and the side of the artery with a running suture of 7-0 Prolene. Once flow was allowed through the fistula, there was a palpable thrill over the fistula, a palpable pulse in the radial artery distal to the fistula. Hemostasis was seen to be adequate. The wound was then closed with 3-0 Vicryl for subcutaneous tissue and jimena for the skin. A sterile dressing was applied. The patient tolerated the procedure well. Estimated blood loss was 10 mL. There were no complications. All counts were correct. Patient was taken to the recovery room in satisfactory condition. Job#: [id number] EDUIN
[2017-11-24] MEDS ORDERED: DEXAMETHASONE SOD PHOS INJ 4 MG/ML VIAL ONE (17:52)
[2017-11-24] MEDS ORDERED: ETOMIDATE 2 MG/ML 10 ML INJ IV ONE (17:52)
[2017-11-24] MEDS ORDERED: CEFAZOLIN SOD 1 GM VIAL ONE (17:52)
[2017-11-24] MEDS ORDERED: SEVOFLURANE INHAL SOLN 250 ML PEN BTL ONE (17:52)
[2017-11-24] MEDS ORDERED: ONDANSETRON HCL INJ 2 MG/ML VIAL ONE (17:52)
[2017-11-24] MEDS ORDERED: PROPOFOL IV EMULSION 10 MG/ML 20 ML VIAL ONE (17:52)
[2017-11-24] MEDS ORDERED: FENTANYL CITRATE/PF 100MCG/2 ML INJ ONE (18:21)
[2017-11-24] MEDS ORDERED: MIDAZOLAM HCL 2 MG/2 ML VIAL ONE (18:21)
[2017-11-25] VITALS: BP 167/73
[2017-11-25 04:00] VITALS: BP 131/63
[2017-11-25] MEDS: FUROSEMIDE INJ 10 MG/ML 4 ML VIAL IV SCH ×2 (06:07→16:13)
[2017-11-25 06:14] VITALS: BP_SYST 117; BP_SYST 131; BP_DIAS 53; BP_DIAS 63
[2017-11-25] MEDS: SODIUM BICARBONATE 650 MG TAB PO SCH (08:00)
[2017-11-25] MEDS: INSULIN LISPRO 100 UNIT/1 ML 3ML VIAL SQ SCH ×2 (08:00→11:30)
[2017-11-25] MEDS: FOLIC ACID 1 MG TAB PO SCH (08:00)
[2017-11-25] MEDS: FERROUS SULFATE 325 MG TAB PO SCH (08:00)
[2017-11-25] MEDS: AMIODARONE HCL 200 MG TAB PO SCH (08:00)
[2017-11-25] MEDS: CYANOCOBALAMIN 1,000 MCG TAB PO SCH (08:00)
[2017-11-25] MEDS: PANTOPRAZOLE SOD 40 MG TABEC PO SCH (08:00)
[2017-11-25 08:45] VITALS: BP 132/60
[2017-11-25] MEDS: NIFEDIPINE CR 30 MG TAB PO SCH (09:00)
[2017-11-25 09:30] VITALS: BP 132/60
[2017-11-25 11:58] VITALS: BP 137/69
[2017-11-25] MEDS ORDERED: EPOETIN ALFA 10000 UNIT/ML VIAL SC NR (12:00)
--- NOTE | 2017-11-25 12:25 | Progress Note ---
DATE: November 25, 2017 Seen on dialysis. Tolerating the procedure. Has an outpatient chair. Will try to move it up to 11/27/2017. PHYSICAL EXAMINATION VITALS: Temperature 96.7, pulse 70, blood pressure 132/60. CHEST: Clear with minimally diminished breath sounds at the bases. EXTREMITIES: Trace edema. NEURO: Alert and appropriate. New arteriovenous fistula, left upper extremity, with bruit. LABS: Hemoglobin is 9.1. Last potassium was 3.4. ASSESSMENT 1. New end-stage renal disease. 2. Anemia of chronic kidney disease. 3. Hypertension. PLAN: Hemodialysis today, 4-hour run. Increase UF to 3 to 4 L, 3-potassium bath, blood flow rate 350 mL per minute, dialysate flow rate 500 mL per minute. Probably okay to go home today. Plan is to get him on outpatient dialysis the day after tomorrow. One dose of Epogen. Job#: [id number]
--- NOTE | 2017-11-25 14:33 | Discharge Summary ---
He is a 77-year-old male patient admitted with complaint of shortness of breath. ADMITTING IMPRESSION AND DIAGNOSES 1. Decompensated congestive heart failure, diastolic and systolic dysfunction. 2. Zqdkq-gy-hazohwi renal failure. Worsening renal failure. 3. Anemia. 4. Hypertension. 5. Diabetes mellitus. HOSPITAL COURSE SUMMARY: The patient was admitted with the above diagnoses. The patient was put on IV Lasix and telemetry monitoring. Cardiac monitoring was done. The patient was prepared for hemodialysis as an outpatient, but now the patient required urgent hemodialysis. Hemodialysis treatment was started. The patient had multiple urgent hemodialysis treatments done. Outpatient hemodialysis arrangements were made. The patient was doing physical therapy and occupational therapy. Upon stabilization, the patient was discharged home with outpatient hemodialysis 3 times a week arranged. The patient had also cardiology evaluation done by Dr. Garcia. The patient had nephrology evaluation done by Dr. Gonsalves and Dr. Griffith. The patient was taken to the OR during the inpatient stay, and the left arm AV fistula was done by Dr. Landon. The patient had hemodialysis catheter placed prior to hemodialysis treatment was started. POPPY MEDINA MD Job#: [id number]
--- NOTE | 2017-11-25 15:19 | Diagnostic Imaging Report ---
PROCEDURE: Frontal and lateral views of the chest. COMPARISON: Patients [facility], DX, CHEST SINGLE (PORTABLE), 11/21/2017, 5:27. INDICATIONS: PULMONARY ADEMA FINDINGS: Lines/tubes: Right sided dialysis catheter with distal tip projected on the cavoatrial junction. Lungs: Patchy density in the lung bases probably represent subsegmental atelectasis associated with pleural effusions. Pleura: Bilateral pleural effusions, small on the right, and trace on the left. There is no pneumothorax. Heart and mediastinum: The cardiac silhouette is mildly enlarged. Bones: No acute bony abnormality. IMPRESSION: 1. Mild bilateral pulmonary venous congestion. Small right and trace left pleural effusions associated with bibasilar subsegmental atelectasis. Raeann Hudson M.D. Dictated by: Raeann Hudson M.D. on 11/25/2017 at 15:27 Electronically approved by: Raeann Hudson M.D. on 11/25/2017 at 15:27
[2017-11-25] MEDS ORDERED: EPOETIN ALFA 10000 UNIT/ML VIAL SC ONE (16:30)
== END 2017-11-25 16:30 | disposition home or self-care (01) | DRG 264 ==
LOC: ER 09:31 → ERHOLD 15:41 → MED/SURG 15:43
PROVIDERS: ADMIT Internal Medicine; ATTEND Internal Medicine
PROC: 02HV33Z Insertion of Infusion Device into Superior Vena Cava, Percutaneous Approach (ICD-10-PCS; 2017-11-23)
PROC: 5A1D70Z Performance of Urinary Filtration, Intermittent, Less than 6 Hours Per Day (ICD-10-PCS; 2017-11-23)
PROC: 031C0ZF Bypass Left Radial Artery to Lower Arm Vein, Open Approach (ICD-10-PCS; principal; 2017-11-24 12:30)
DX: I13.2 Hypertensive heart and chronic kidney disease with heart failure and with stage 5 chronic kidney disease, or end stage renal disease (principal); N17.9 Acute kidney failure, unspecified; I48.91 Unspecified atrial fibrillation; D63.1 Anemia in chronic kidney disease; I50.43 Acute on chronic combined systolic (congestive) and diastolic (congestive) heart failure; N18.6 End stage renal disease; Z79.01 Long term (current) use of anticoagulants; I25.10 Atherosclerotic heart disease of native coronary artery without angina pectoris
CPT/HCPCS: 36415; 36565; 71045; 71046; 74470; 77002; 80048; 80053; 80061; 81001; 82550; 82553; 82728; 82948; 83540; 83605; 83735; 83880; 83970; 84100; 84132; 84443; 84466; 84484; 84550; 85025; 85610; 85730; 86704; 86706; 87040; 87086; 87186; 87340; 87400; 90962; 93005; 93306; 96372; 99284; C1751; C1769; J0690; J1100; J1644; J1940; J2001; J2250; J2405; J7030; J7040; Q4081

== ENCOUNTER 2017-12-19 05:48 | Inpatient (IN) | payer MEDICARE ==
[~2017-12-19] VITALS: Ht 172.7 cm; Wt 87.8 kg
[~2017-12-19 05:48] MED LIST changes: +CEFUROXIME250 MG PO; +CETIRIZINE-PSE1 EACH; -FERROUS SULFAT325 MG; +FERROUS SULFAT325 MG PO; +KEFLEX500 MG; +NIFEDIPINE ER90 M1 PO
--- OUTSIDE RECORDS SUMMARY | 2017-12-19 05:50 | XMS REPORT | Clinical Summary ---
Author Author [facility] Address Unknown Phone Unavailable Care Team Providers Care President Finance [employer] Name Role Phone Asked, Pcp PCP Unavailable Allergies Active Allergy Reactions Severity Noted Date Comments Meperidine 05/24/2017 Current Medications Prescription Sig. Disp. Refills Start End Date Status Date cyanocobalamin 500 MCG Take 500 mcg by mouth Active tablet daily. carvedilol (COREG) 12.5 Take 12.5 mg by mouth 2 Active MG tablet (two) times a day with meals. folic acid (FOLVITE) 400 Take 400 mcg by mouth Active MCG tablet daily. pantoprazole (PROTONIX) Take 40 mg by mouth Active 40 MG EC tablet daily. NIFEdipine XL (PROCARDIA Take 60 mg by mouth Active XL) 60 MG 24 hr tablet daily. ferrous sulfate 325 (65 Take 325 mg by mouth Active FE) MG tablet daily with breakfast. furosemide (LASIX) 20 mg Take 20 mg by mouth 2 Active tablet (two) times a day. prednisoLONE acetate Administer 1 drop into 18 mL 0 05/24/20 (PRED FORTE) 1 % the left eye every 2 17 17 ophthalmic suspension (two) hours while awake for 30 days. acetaminophen-codeine Take 1 tablet by mouth 20 tablet 0 05/24/20 (TYLENOL WITH CODEINE #3) every 4 (four) hours as 17 17 300-30 mg per tablet needed for moderate pain for up to 10 days. moxifloxacin (VIGAMOX) Administer 1 drop into 3 mL 0 05/24/20 0.5 % ophthalmic solution the left eye 4 (four) 17 17 times a day for 10 days. Active Problems Not on file Encounters Date Type Specialty Care Team Description 05/24/2017 Hospital Plastic Surgery Fady Whitaker MD Encounter 05/24/2017 Anesthesia Plastic Surgery Fabio Green Event MD 05/24/2017 Procedure Pass Plastic Surgery 05/24/2017 Surgery Plastic Surgery Fady Whitaker MD VITRECTOMY, ENDOLASER LEFT EYE after 12/18/2016 Social History Tobacco Use Types Packs/Day Years Used Date Former Smoker 1 15 Alcohol Use Drinks/Week oz/Week Comments No Sex Assigned at Date Recorded Not on file Last Filed Vital Signs Vital Sign Reading Time Taken Blood Pressure 172/79 05/24/2017 8:53 AM CDT Pulse 75 05/24/2017 8:53 AM CDT Temperature 37 C (98.6 F) 05/24/2017 8:53 AM CDT Respiratory Rate 15 05/24/2017 8:53 AM CDT Oxygen Saturation 97% 05/24/2017 8:53 AM CDT Inhaled Oxygen - - Concentration Weight 92.8 kg (204 lb 8 oz) 05/24/2017 6:21 AM CDT Height 172.7 cm (5' 8") 05/24/2017 6:21 AM CDT Body Mass Index 31.09 05/24/2017 6:21 AM CDT Plan of Treatment Not on file Procedures Procedure Name Priority Date/Time Associated Diagnosis Comments VITRECTOMY, ENDOLASER 05/24/2017 Vitreous hemorrhage of LEFT EYE 7:30 AM CDT left eye after 12/18/2016 Results * POC glucose (05/24/2017 6:33 AM) Component Value Ref Range POC glucose 113 (H) 65 - 99 mg/dL Comment: Meter ID: [id number] Photo Tube Assembler: Constantino Gallardo Specimen Performing Laboratory [facility] DEPARTMENT OF PATHOLOGY AND GENOMIC MEDICINE [address] [place] [id number] after 12/18/2016 Insurance Payer Benefit Subscriber ID Type Phone Address Plan / Group AETNA MEDICARE AETNA xxxxxxxx O MEDICARE HMO/PPO [facility]
--- OUTSIDE RECORDS SUMMARY | 2017-12-19 05:50 | XMS REPORT ---
Author Author [facility] Address Unknown Phone Unavailable Care Team Providers Care Wood Caulker Name Role Phone POPPY MEDINA Unavailable Unavailable Problems This patient has no known problems. Allergies, Adverse Reactions, Alerts This patient has no known allergies or adverse reactions. Medications This patient has no known medications. Results Test Description Test Time Test Comments Text Results Atomic Results Result Comments CHEST 2 VIEWS [place] [address] Patient Name: KRISTEN GAR MR #: [id number] : 1940 Age/Sex: 77/M Req #: [id number] Adm Physician: POPPY MEDINA MD Ordered by: HIRA ALVAREZ MD Report #: [id number] Location: MED/SURG Room/Bed: [facility] _ Procedure: [id number] DX/CHEST 2 VIEWS Exam Date: 11/25/17 Exam Time: 1500 REPORT STATUS: Signed PROCEDURE: Frontal and lateral views of the chest. COMPARISON: [facility], DX, CHEST SINGLE (PORTABLE), 11/21/2017, 5:27. INDICATIONS: PULMONARY ADEMA FINDINGS: Lines/tubes: Right sided dialysis catheter with distal tip projected on the cavoatrial junction. Lungs: Patchy density in the lung bases probably represent subsegmental atelectasis associated with pleural effusions. Pleura: Bilateral pleural effusions, small on the right, and trace on the left. There is no pneumothorax. Heart and mediastinum: The cardiac silhouette is mildly enlarged. Bones: No acute bony abnormality. IMPRESSION: 1. Mild bilateral pulmonary venous congestion. Small right and trace left pleural effusions associated with bibasilar subsegmental atelectasis. Raeann Bowser M.D. Dictated by: Raeann Bowser M.D. on 11/25/2017 at 15: 27 Electronically approved by: Raeann Bowser M.D. on 11/25/2017 at 15:27 Dictated By: GAGE BOWSER MD, MD 26 Transcribed By: PETERSON on 11/25 COPY TO: HIRA ALVAREZ MD IR CONSULT [place] [address] Patient Name: KRISTEN GAR MR #: [id number] : 1940 Age/Sex: 77/M Req #: [id number] Adm Physician: POPPY MEDINA MD Ordered by: DUSTIN PHILLIP, CARMINE PHILLIP Report #: [id number] Location: MED/SURG Room/Bed: [facility] _ Procedure: [id number] DX/IR CONSULT Exam Date: Exam Time: REPORT STATUS: Signed Tunneled Dialysis Catheter Placement November 1627 Pre-Procedure Diagnosis: End-Stage Renal Disease Post- procedure Diagnosis:End-Stage Renal Disease Wooden Frame Builder: Cornel Guerrero Director Of Mechanical Engineering: None Sedation: Moderate sedation was provided with intravenous fentanyl and Versed. Heart rate, rhythm and oxygen saturation were monitored and real-time by a dedicated interventional radiology nurse under my direct supervision. Blood pressure was monitored in 5 minute increments. 1% lidocaine was used for local anesthesia. Total sedation time: 30 min Radiation Dose: 152.8 cGycm2 (Dose Area Product) Fluoroscopy time: 0.6 minutes Estimate blood loss: <5 mL Blood administered: None Complications : None Implants/Grafts: 16 [place] 23 cm cuffed tunneled dialysis catheter Specimen: None Procedure: Informed consent was obtained and the patient positioned supine in the fluoroscopy suite. A timeout was performed, followed by preliminary ultrasound of the right internal jugular vein (see findings below). The right neck and chest were prepped and draped in standard fashion. Using real-time ultrasound guidance a 21 gauge vascular needle was used to access the right internal jugular vein. An image was stored in the electronic medical record. A wire was advanced across the right atrium under fluoroscopy and the needle exchanged for a peel-away sheath. A skin incision was made inferior to the clavicle and the catheter tunneled to the access site. The catheter was then deployed through the peel-away sheath and positioned with the tip at the atriocaval junction/right atrium. At the end of the procedure the catheter was flushed, packed with heparin solution, secured to the skin and a sterile dressing applied. The patient tolerated the procedure well and without immediate complication. Findings: Patent right internal jugular vein as demonstrated by normal ultrasound compressibility. Impression: Successful placement of a tunneled right internal jugular vein dialysis catheter using ultrasound and fluoroscopic guidance under moderate sedation. This report was generated with voice-recognition technology. Errors in water taxi driver can occur. Please interpret accordingly and contact a radiologist if there are any questions regarding the report. Signed by: Dr. Lester Guerrero M.D. on 11/23/2017 11: 47 AM Dictated By: LESTRE GUERRERO MD 1147 Transcribed By: KELBY on 11/23/17 1147 COPY TO: CARMINE CHAN SPECIAL PROCEDURE IN FORESTRY HUNTER [place] [address] Patient Name: KRISTEN GAR MR #: [id number] : 1940 Age/Sex: 77/M Req #: [id number] Adm Physician: POPPY MEDINA MD Ordered by: CARMINE CHAN MD, MD Report #: [id number] Location: MED/SURG Room/Bed: [facility] Procedure: [id number] IR/SPECIAL PROCEDURE IN FORESTRY HUNTER Exam Date: Exam Time: REPORT STATUS: Signed Tunneled Dialysis Catheter Placement November 1627 Pre-Procedure Diagnosis: End-Stage Renal Disease Post-procedure Diagnosis:End-Stage Renal Disease Wooden Frame Builder: Cornel Guerrero Director Of Mechanical Engineering: None Sedation: Moderate sedation was provided with intravenous fentanyl and Versed. Heart rate, rhythm and oxygen saturation were monitored and real-time by a dedicated interventional radiology nurse under my direct supervision. Blood pressure was monitored in 5 minute increments. 1% lidocaine was used for local anesthesia. Total sedation time: 30 min Radiation Dose: 152.8 cGycm2 (Dose Area Product) Fluoroscopy time: 0.6 minutes Estimate blood loss: <5 mL Blood administered: None Complications: None Implants/Grafts: 16 [place] 23 cm cuffed tunneled dialysis catheter Specimen: None Procedure: Informed consent was obtained and the patient positioned supine in the fluoroscopy suite. A timeout was performed, followed by preliminary ultrasound of the right internal jugular vein (see findings below). The right neck and chest were prepped and draped in standard fashion. Using real-time ultrasound guidance a 21 gauge vascular needle was used to access the right internal jugular vein. An image was stored in the electronic medical record. A wire was advanced across the right atrium under fluoroscopy and the needle exchanged for a peel-away sheath. A skin incision was made inferior to the clavicle and the catheter tunneled to the access site. The catheter was then deployed through the peel-away sheath and positioned with the tip at the atriocaval junction/right atrium. At the end of the procedure the catheter was flushed, packed with heparin solution, secured to the skin and a sterile dressing applied. The patient tolerated the procedure well and without immediate complication. Findings: Patent right internal jugular vein as demonstrated by normal ultrasound compressibility. Impression: Successful placement of a tunneled right internal jugular vein dialysis catheter using ultrasound and fluoroscopic guidance under moderate sedation. This report was generated with voice-recognition technology. Errors in water taxi driver can occur. Please interpret accordingly and contact a radiologist if there are any questions regarding the report. Signed by: Dr. Lester Guerrero M.D. on 11/23/2017 11:47 AM Dictated By: LESTER GUERRERO MD 1147 Transcribed By: KELBY on 11/23/17 1147 COPY TO: CARMINE CHAN CHEST SINGLE (PORTABLE) [place] [address] Patient Name: KRISTEN GAR MR #: [id number] : 1940 Age/Sex: 77/M Req #: [id number] Adm Physician: POPPY MEDINA MD Ordered by: AMAN GIRALDO MD Report #: [id number] Location: MED/SURG Room/Bed: [facility] Procedure: [id number] DX/CHEST SINGLE (PORTABLE) Exam Date: Exam Time: 0510 REPORT STATUS: Signed EXAM: CHEST SINGLE (PORTABLE), AP 1 view DATE: 11/21/2017 7:00 AM Time stamp on exam: 0527 hours INDICATION: Temporary dialysis catheter COMPARISON : AP view of the chest November 20, 2017 FINDINGS: LINES/TUBES: None LUNGS: Interval worsening pulmonary edema PLEURA: Enlarging bilateral pleural effusions HEART AND MEDIASTINUM: Enlarged cardiomediastinal silhouette BONES AND SOFT TISSUES: No acute findings. IMPRESSION: Worsening fluid overload with pulmonary edema and bilateral pleural effusions Signed by: Dr. Christine Gutierrez M.D. on 11/21/2017 6:27 AM Dictated By: CHRISTINE GUTIERREZ MD 6 COPY TO: AMAN GIRALDO MD CHEST SINGLE (PORTABLE) [place] [address] Patient Name: KRISTEN GAR MR #: [id number] : 1940 Age/Sex: 77/M Req #: [id number] Adm Physician: Ordered by: AMAN GIRALDO MD Report # : [id number] Location: ER Room/Bed: Procedure: [id number] DX/CHEST SINGLE (PORTABLE) Exam Date: 11/20/17 Exam Time: 1015 REPORT STATUS: Signed EXAMINATION: CHEST SINGLE ( PORTABLE) INDICATION: Shortness of breath COMPARISON: Chest radiograph from 11/09/2017 FINDINGS: AP view TUBES and LINES: None. LUNGS: Lungs are well inflated. Bibasilar atelectasis, unchanged. Worsening bilateral central pulmonary vascular congestion. PLEURA: Small bilateral pleural effusion, right greater than left, mildly increased on the right. HEART AND MEDIASTINUM: Stable mild enlargement of the cardiac silhouette. Tortuous thoracic aorta. BONES AND SOFT TISSUES: No acute osseous lesion. Soft tissues are unremarkable. UPPER ABDOMEN: No free air under the diaphragm. IMPRESSION: Worsening central pulmonary vascular congestion and bilateral small pleural effusion. Signed by: Dr. Cinthia Sauceda M.D. on 11/20/2017 11: 09 AM Dictated By: CINTHIA SAUCEDA MD 08 Transcribed By: KELBY on 1108 COPY TO: AMAN GIRALDO MD CHEST 2 VIEWS [place] [id number] [place] [address] Patient Name: KRISTEN GAR MR #: [id number] : 1940 Age/Sex: 77/M Req #: [id number] Adm Physician: Ordered by: POPPY MEDINA MD Report #: [id number] Location: [facility] Room/Bed: Procedure: [id number] DX/CHEST 2 VIEWS Exam Date: 11/09/17 Exam Time: 1720 REPORT STATUS: Signed PROCEDURE: Frontal and lateral views of the chest. COMPARISON: Chest radiograph 09/27/2017. INDICATIONS: SOB/COUGH FINDINGS: Lines/tubes: None. Lungs/Pleura: Small bilateral pleural effusions with adjacent bibasilar opacities likely representing atelectasis. Stable punctate calcified granuloma or bone island overlying the right mid lung. No pneumothorax. Heart and mediastinum: The heart and the mediastinum are normal. Bones: No acute bony abnormality. IMPRESSION: Small bilateral pleural effusions with adjacent atelectasis. Superimposed consolidation cannot be excluded. Dictated by: Timbo Nichols M.D. on 11/09/2017 at 17:42 Electronically approved by: Timbo Nichols M.D. on 11/09/2017 at 17:42 Dictated By: TIMBO NICHOLS MD 41 Transcribed By: PETERSON on 11/09/171741 COPY TO: POPPY MEDINA MD CHEST 2 VIEWS [place] [address] Patient Name: KRISTEN GAR MR #: [id number] : 1940 Age/Sex: 76/M Req #: [id number] Adm Physician: Ordered by: MOSES MAGANA MD Report #: [id number] Location: ER Room/Bed: Procedure: [id number] DX/CHEST 2 VIEWS Exam Date: Exam Time: REPORT STATUS: Signed CHEST 2 VIEWS, Technique: CHEST 2 VIEWS Comparison: 07/23/2017 Clinical history: S PALPITATIONS, H/O AFIB CHF DISCUSSION: Stable mild cardiomegaly. Likely several calcified lung granulomas. No consolidation or edema. No pleural effusion or pneumothorax. IMPRESSION: Cardiomegaly without overt edema or consolidation. Signed by: Dr Anders Gould MD on 09/27/2017 1:55 AM Dictated By: ANDERS GOULD MD 4 Transcribed By: KELBY on 09/27/17154 COPY TO: MOSES MAGANA MD RENAL RETROPERITONEAL COMP [place] [address] Patient Name: KRISTEN GAR MR #: [id number] : 1940 Age/Sex: 76/M Req #: [id number] Adm Physician: POPPY MEDINA MD Ordered by: DUSTIN PHILLIP, CARMINE PHILLIP Report #: [id number] Location: [facility] Room/Bed: [facility] 179-1 Procedure: US/US RENAL RETROPERITONEAL COMP Exam Date: Exam Time: REPORT STATUS: Signed PROCEDURE: US RETROPERITONEAL ( KIDNEY ). COMPARISON: [facility], , US RETROPERITONEAL ( KIDNEY )., 07/24/2017, 11:31. INDICATIONS: Elevated Creatinine TECHNIQUE: Correa scale and color Doppler ultrasound kidneys FINDINGS: Right: Nephrectomy. Left: 13.1 x 6.6 x 5.7 cm. Cortical thickness 2 cm The left kidney demonstrates normal parenchymal echogenicity and contour. No hydronephrosis. Normal urinary bladder. Prostate volume 30 mL. CONCLUSION: 1. No acute abnormality of the left kidney. 2. Right nephrectomy. Dictated by: Lester Guerrero M.D. on 09/27/2017 at 11:40 Electronically approved by: Lester uGerrero M.D. on 09/27/2017 at 11:40 Dictated By: LESTER GUERRERO MD 1140 Transcribed By: PETERSON on 09/27/17 1140 COPY TO: CARMINE CHAN RENAL RETROPERITONEAL COMP [place] [address] Patient Name: KRISTEN GAR MR #: [id number] : 1940 Age/Sex: 76/M Req #: [id number] [facility] Physician: POPPY MEDINA MD Ordered by: DOMENIC DENTON MD Report #: [id number] Location: MED/SURG Room/Bed: [facility] __ Procedure: US/US RENAL RETROPERITONEAL COMP Exam Date: 07/24/17 Exam Time: 1150 REPORT STATUS: Signed EXAM: Renal Ultrasound INDICATION: Chronic kidney disease. GI bleed. S ckd S Y COMPARISON: CT abdomen and pelvis without contrast 01/09/2017 TECHNIQUE: Transverse and longitudinal images of the kidneys and bladder were obtained. FINDINGS: Right Kidney: Nephrectomy 15 years ago Left Kidney: Size: 12.7 x 6.0 x 5.2 cm Echogenicity: Normal Parenchymal thickness: Normal Collecting system: Mild hydronephrosis Stones: None Cyst/Mass: None Bladder: Partially decompressed Trace right pleural effusion. IMPRESSION: 1. Mild left hydronephrosis. Otherwise, normal-appearing left kidney 2. Right nephrectomy. Signed by: Dr. Butch Julian M.D. on 2016 12:32 PM Dictated By: BUTCH JULIAN MD 1232 Transcribed By: KELBY on 07/24/17 1232 COPY TO: DOMENIC DENTON MD CHEST SINGLE (PORTABLE) [place] [address] Patient Name: KRISTEN GAR MR #: [id number] : 1940 Age/Sex: 76/M Req #: [id number] Adm Physician: POPPY MEDINA MD Ordered by: POPPY MEDINA MD Report #: [id number] Location: MED/SURG Room/Bed: [facility] Procedure: [id number] DX/CHEST SINGLE (PORTABLE) Exam Date: 07/23/17 Exam Time: 1825 REPORT STATUS: Signed PROCEDURE: CHEST SINGLE (PORTABLE) COMPARISON: Chest x-ray 01/09/17. INDICATIONS: GI BLEED FINDINGS: LUNGS: Clear. Pulmonary vasculature and interstitium are normal. CARDIAC: Mildly enlarged but stable. MEDIASTINUM: Mild aortic ectasia is stable. PLEURA: No pleural effusions, pleural thickening, or pneumothorax. BONES: No focal osseous lesions. OTHER: Negative. CONCLUSION: 1. No acute cardiopulmonary process. 2. Stable mild cardiomegaly. Dictated by : Jae Porter M.D. on 07/23/2017 at 18:57 Electronically approved by : Jae Porter M.D. on 07/23/2017 at 18:57 Dictated By: JAE PORTER MD 56 COPY TO: POPPY MEDINA MD
[2017-12-19] MEDS ORDERED: PANTOPRAZOLE 40 MG 10ML VIAL IV STA (06:05)
[2017-12-19] MEDS ORDERED: PANTOPRAZOLE SO40 MG PO (06:08)
[2017-12-19] MEDS ORDERED: CARVEDILOL12.5 MG PO (06:08)
[2017-12-19] MEDS ORDERED: SODIUM CHLORIDE 0.9% 500ML 500 ML ONE (06:11)
[2017-12-19] MEDS ORDERED: SODIUM CHLORIDE 0.9% 500ML 500 ML IV ONE (06:15)
[2017-12-19 06:35] LABS: BASOPHILS # (AUTO) 0.1 (0.0-0.1); BASOPHILS % 1.3 % (0.0-1.0); EOSINOPHILS # (AUTO) 0.3 (0.0-0.4); EOSINOPHILS % 3.9 % (0.0-6.0); HEMATOCRIT 32.3 % (38.2-49.6); HEMOGLOBIN 10.1 g/dL (14.0-18.0); LYMPHOCYTES # (AUTO) 0.6 (1.0-3.2); LYMPHOCYTES % 9.4 % (18.0-39.1); MEAN CORPUSCULAR HEMOGLOBIN 29.7 pg (28-32); MEAN CORPUSCULAR HGB CONC 31.3 g/dL (31-35); MONOCYTES # (AUTO) 0.8 (0.2-0.8); MONOCYTES % 11.9 % (4.4-11.3); NEUTROPHILS # (AUTO) 4.7 (2.1-6.9); NEUTROPHILS % 72.9 % (38.7-80.0); PLATELET COUNT 161 x10e3/uL (140-360); RED CELL DISTRIBUTION WIDTH 13.8 % (11.7-14.4)
[2017-12-19 06:47] LABS: INR 1.15; PROTHROMBIN TIME 13.8 seconds (11.9-14.5)
[2017-12-19 06:48] LABS: PARTIAL THROMBOPLASTIN TIME 28.3 seconds (23.8-35.5)
[2017-12-19 06:57] LABS: ALBUMIN 2.9 g/dL (3.5-5.0); ALBUMIN/GLOBULIN RATIO 0.7 (0.8-2.0); ANION GAP 15.2 mmol/L (8-16); CREATININE, SERUM 2.44 mg/dL (0.72-1.25); MAGNESIUM 2.1 MG/DL (1.3-2.1); POTASSIUM 4.2 mmol/L (3.5-5.1)
[2017-12-19 07:06] LABS: CREATINE KINASE MB 1.3 ng/mL (0.00-5.00)
[2017-12-19 07:28] LABS: B-TYPE NATRIURETIC PEPTIDE2 240.5 pg/mL (0-100)
[2017-12-19] MEDS ORDERED: CEFEPIME HCL 2 GM VIAL IV STA (07:28)
[2017-12-19] MEDS ORDERED: VANCOMYCIN 1GM/NS 250 ML 250 ML IV STA (07:28)
--- NOTE | 2017-12-19 07:58 | Diagnostic Imaging Report ---
EXAMINATION: Chest, CHEST SINGLE (PORTABLE) INDICATION: Chest pain COMPARISON: Portable chest 11/21/2017 FINDINGS: LINES: Right internal jugular tunneled central venous catheter with tip projecting over the expected region of the superior vena cava. Heart: Normal cardiac silhouette. Vascular: The pulmonary vasculature is within normal limits. Atherosclerotic calcifications of the aortic arch. Mediastinum: No mediastinal, hilar, or axillary mass or lymphadenopathy. Lungs: No parenchymal mass. No focal consolidation. Pleura: No pleural effusion. No pneumothorax. Bones: No acute osseous abnormality. Degenerative changes of the thoracic spine. Soft tissues: Normal. Impression: No acute radiographic abnormality. Signed by: Dr. Dave Merchant M.D. on 12/19/2017 7:55 AM
[2017-12-19 09:05] LABS: CLARITY,URINE CLOUDY (CLEAR); COLOR,URINE YELLOW (YELLOW); KETONES,URINE TRACE (NEGATIVE); LEUKOCYTE ESTERASE ,URINE 2+ (NEGATIVE); NITRITE,URINE NEGATIVE (NEGATIVE); PROTEIN,URINE DIPSTICK 3+ (NEGATIVE); URINE UROBILINOGEN 0.2 mg/dL (0.2 - 1)
[2017-12-19 09:06] LABS: BILIRUBIN,URINE 2+ (NEGATIVE)
[2017-12-19 09:08] LABS: BACTERIA,URINE FEW /HPF; EPITHELIAL CELLS,URINE MODERATE /LPF; RBC,URINE 0-5 /HPF (0-5)
[2017-12-19] MEDS ORDERED: SODIUM CHLORIDE 0.9% 250ML 250 ML IV ONE ×2 (10:15→12:30)
[2017-12-19] MEDS ORDERED: VANCOMYCIN 1GM/NS 250 ML 250 ML IV ONE (11:00)
[2017-12-19] MEDS ORDERED: CEFEPIME HCL 2 GM VIAL IV ONE (11:00)
[2017-12-19] MEDS ORDERED: ONDANSETRON HCL INJ 2 MG/ML VIAL IV PRN (11:45)
[2017-12-19] MEDS ORDERED: SODIUM CHLORIDE FLUSH 10 ML SYR INJ PRN (11:45)
--- OUTSIDE RECORDS SUMMARY | 2017-12-19 12:17 | XMS REPORT | Clinical Summary ---
Author Author [facility] [employer] Organization [employer] Address Unknown Phone Unavailable Care Team Providers Care Training Generalist Name Role Phone Asked, Pcp PCP Unavailable [...] 65 - 99 mg/dL Comment: Meter ID: [id number] Locomotive Repairer Diesel: Constantino Gallardo Specimen Performing Laboratory [facility] DEPARTMENT OF PATHOLOGY AND GENOMIC MEDICINE [address] [place] [phone] after 12/18/2016 Insurance Payer Benefit Subscriber ID Type Phone Address Plan / Group AETNA MEDICARE AETNA xxxxxxxx O MEDICARE HMO/PPO [facility]
[2017-12-19] MEDS ORDERED: SODIUM CHLORIDE 0.9% 250ML 250 ML ONE (12:26)
[2017-12-19 14:32] VITALS: BP 109/52
[2017-12-19 14:38] VITALS: BP 109/52
[2017-12-19 14:43] LABS: CREATINE KINASE MB 1.2 ng/mL (0.00-5.00)
[2017-12-19] MEDS ORDERED: DEXTROSE 50% SYRINGE 50 ML IV PRN (15:15)
[2017-12-19 16:00] VITALS: BP 121/62
--- NOTE | 2017-12-19 16:07 | History and Physical ---
CHIEF COMPLAINTS 1. Low blood pressure. 2. Weakness. HPI: This is a 77-year-old recently diagnosed with end-stage renal disease and started on hemodialysis, hypertension, congestive heart failure, diabetes mellitus, atrial fibrillation. He was in his usual state of health until yesterday. He had dialysis. After dialysis in the evening and early this morning, the patient's blood pressure was low, and he was very weak. No chest pain. No shortness of breath. No leg pain or leg swelling. No hematemesis. No melena. No bleeding per rectum. No cough. No fever. No backache. No burning urination. No diarrhea. No nausea. No vomiting. The patient was also very weak. ALLERGIES: MEPERIDINE. PAST MEDICAL HISTORY 1. Diabetes mellitus. 2. Atrial fibrillation. 3. Coronary artery disease. 4. Hypertension. 5. Chronic renal failure on hemodialysis. 6. Congestive heart failure. PAST SURGICAL HISTORY: History of AV graft on left forearm, and right chest has a dialysis catheter. SOCIAL HISTORY: Patient lives with the family. HABITS: Denies smoking. Denies alcohol use. FAMILY HISTORY: Diabetes and hypertension. MEDICATIONS: List attached. REVIEW OF SYSTEMS GENERAL: Fatigue and weakness. HEENT: No diplopia. No blurring of vision. CARDIOPULMONARY: No chest pain. No shortness of breath. No cough. ALIMENTARY SYSTEM: No nausea or vomiting. No diarrhea or constipation. No hematemesis. No melena. GENITOURINARY: No dysuria or hematuria. MUSCULOSKELETAL: No joint pain. CENTRAL NERVOUS SYSTEM: No focal weakness. PHYSICAL EXAMINATION GENERAL: This is a 77-year-old male who is alert and oriented times 3, in no gross distress. VITAL SIGNS: Temperature 97.7, pulse 61, respiratory rate 17, blood pressure 93/51. HEENT: Head is atraumatic and normocephalic. Pupils are bilaterally equal and reactive to light. Extraocular movements intact. NECK: Supple. No lymphadenopathy. No JVD. No carotid bruit. LUNGS: Clear to auscultation and percussion bilaterally. No added sound. HEART: S1 and S2. Regular rate and rhythm. No S3. No S4. No murmur. ABDOMEN: Soft. Nontender. No guarding. No rigidity. EXTREMITIES: No pedal edema. Peripheral pulses +1. TELEPHONIC RN: Grossly nonfocal. LABS: White count 6.38, hemoglobin 10.1, hematocrit 32.3, platelets 161. Sodium 136, potassium 4.2, BUN 13, creatinine 2.44, albumin 2.9. Urine cloudy, white count 11-20, blood +1. Blood and urine cultures are negative. Chest x-ray is normal. EKG: Sinus rhythm with 1st-degree AV block at 63 per minute. ASSESSMENT 1. Hypotension, rule out from medication. 2. Overdiuresis from dialysis. 3. Rule out sepsis. 4. Possible urosepsis and urinary tract infection. 5. End-stage renal disease on hemodialysis. 6. Hypertension. 7. Atrial fibrillation. 8. Congestive heart failure. 9. Diabetes mellitus, type 2. 10. Coronary artery disease. PLAN: Hold home blood pressure medicines. Blood and urine cultures. Monitor blood pressure. ID consult with Dr. Luque. Renal consult with Dr. Griffith. IV Rocephin 1 g IV q.24 h. Discussed case with the patient and nursing staff and the family. Told condition, prognosis and plan of care. Job#: [id number]
[2017-12-19] MEDS: INSULIN LISPRO 100 UNIT/1 ML 3ML VIAL SQ SCH ×2 (16:30→21:00)
--- NOTE | 2017-12-19 16:37 | Consultation ---
DATE OF CONSULTATION: December 19, 2017 RENAL CONSULTATION REQUESTING PHYSICIAN: Dr. Lauro Andrade REASON FOR CONSULTATION: End-stage renal disease management. Fluids, electrolytes and acid-base management. HISTORY OF PRESENT ILLNESS: This is a pleasant, 77-year-old man with history of: 1. End-stage renal disease on Wednesday, , Wednesday chronic hemodialysis schedule. 2. Hypertension. 3. Diabetes mellitus. 4. Atrial fibrillation. 5. Coronary artery disease. 6. Congestive heart failure. 7. Hemodialysis catheter placement. 8. AV access placement. The patient was admitted to [facility] after he presented with chief complaint of low blood pressure, dizziness and generalized weakness. He is on Wednesday, and Wednesday chronic hemodialysis schedule. His last hemodialysis was yesterday. He denies any complaint of chest pain, shortness of breath, nausea or vomiting. Nephrology consultation has been requested for end-stage renal disease management and fluids, electrolytes and acid-base management. His labs today showed BUN of 13 with creatinine of 2.4. PAST MEDICAL HISTORY: As per HPI. PAST SURGICAL HISTORY: As per HPI. ALLERGIES TO MEDICATIONS: PER MAR. SOCIAL HISTORY: Negative x3. FAMILY HISTORY: Positive for diabetes mellitus and hypertension. REVIEW OF SYSTEMS: Positive for dizziness and generalized weakness on admission as per HPI. Low blood pressure as well. Presently, no complaints of chest pain, shortness of breath, nausea, vomiting, diarrhea, fever, or headache. The rest of the review of systems is essentially negative. PHYSICAL EXAMINATION GENERAL: Pleasant man in bed in no acute respiratory distress. VITAL SIGNS: Blood pressure 93/51, pulse 59, respiratory rate 12. HEENT: Pupils are reactive to light. NECK: Supple. CHEST: Lungs are clear to auscultation bilaterally. CARDIOVASCULAR: S1 and S2 heard. ABDOMEN: Soft. EXTREMITIES: No edema. NEUROLOGIC: Awake and alert. PSYCHIATRIC: Normal mood. LABS: Serum sodium is 136, potassium 4.2, chloride 100, bicarbonate 25, BUN 13, creatinine 2.4, calcium 8.0. Lactic acid 27.5, albumin 2.9. Hemoglobin 10.1. Urinalysis findings noted. Chest x-ray findings noted. ASSESSMENT 1. End-stage renal disease. 2. Hypotension. 3. Lactic acidosis. 4. Urinary tract infection. 5. (?)Sepsis. 6. Anemia. 7. Diabetes mellitus. 8. Congestive heart failure. 9. History of hypertension. PLAN 1. He is on Wednesday, and Wednesday chronic hemodialysis schedule. His last hemodialysis was yesterday. Volume status, serum electrolytes and acid-base status are acceptable. Presently, there is no acute indication for hemodialysis. 2. Monitor serum calcium, phosphorus, and magnesium levels. 3. Monitor blood pressure plus hold antihypertensive medication. 4. Panculture plus antibiotics per primary team/infectious disease. 5. Renally dose all medications. 6. Strict I's and O's and daily weights. Thanks for this interesting consult. We will continue to closely follow the patient with you. Please do not hesitate to call us for any further questions. CATHERINE KRISHNAN MD Job#: [id number]
[2017-12-19 19:24] VITALS: BP 118/58
[2017-12-19 19:26] VITALS: BP 118/58
[2017-12-20] VITALS (9 sets, daily range): BP systolic 119–170; BP diastolic 60–101
[2017-12-20 06:37] LABS: BASOPHILS % 0.6 % (0.0-1.0); EOSINOPHILS # (AUTO) 0.4 (0.0-0.4); EOSINOPHILS % 5.7 % (0.0-6.0); HEMOGLOBIN 10.1 g/dL (14.0-18.0); LYMPHOCYTES # (AUTO) 0.6 (1.0-3.2); LYMPHOCYTES % 8.9 % (18.0-39.1); MEAN CORPUSCULAR HEMOGLOBIN 30.1 pg (28-32); MEAN CORPUSCULAR HGB CONC 32.6 g/dL (31-35); MEAN CORPUSCULAR VOLUME 92.5 fL (81-99); MONOCYTES # (AUTO) 0.7 (0.2-0.8); MONOCYTES % 10.9 % (4.4-11.3); NEUTROPHILS # (AUTO) 4.5 (2.1-6.9); NEUTROPHILS % 73.6 % (38.7-80.0); PLATELET COUNT 176 x10e3/uL (140-360); RED BLOOD COUNT 3.35 x10e6/uL (4.3-5.7); RED CELL DISTRIBUTION WIDTH 14.1 % (11.7-14.4)
[2017-12-20 07:08] LABS: CREATINE KINASE MB 1.1 ng/mL (0.00-5.00)
[2017-12-20 07:22] LABS: ANION GAP 13.6 mmol/L (8-16); CALCIUM 7.8 mg/dL (8.4-10.2); CREATININE, SERUM 3.66 mg/dL (0.72-1.25); POTASSIUM 3.6 mmol/L (3.5-5.1)
[2017-12-20 07:38] LABS: MAGNESIUM 1.9 MG/DL (1.3-2.1); PHOSPHORUS 4.1 MG/DL (2.3-4.7)
[2017-12-20] MEDS: INSULIN LISPRO 100 UNIT/1 ML 3ML VIAL SQ SCH ×4 (08:52→20:13)
[2017-12-20] MEDS: PANTOPRAZOLE SOD 40 MG TABEC PO SCH (08:55)
[2017-12-20] MEDS: CEFTRIAXONE SOD 1 GM VIAL IV SCH (08:55)
[2017-12-20] MEDS: FOLIC ACID 400 MCG PO SCH (09:13)
--- NOTE | 2017-12-20 11:06 | Consultation ---
DATE OF CONSULTATION: December 20, 2017 ATTENDING PHYSICIAN: Dr. Lauro Andrade REASON FOR CONSULTATION: Sepsis. Thank you, Dr. Andrade, for asking me to see this patient. HISTORY OF PRESENT ILLNESS: The patient is a 77-year-old man referred for sepsis. He was admitted through the emergency department with postprocedure hypotension and cystitis. He presented to the emergency department with hypotension and generalized weakness. The patient underwent hemodialysis earlier that day and developed symptoms when he returned home from outpatient hemodialysis center. He denies fever, chills, cough, shortness of breath, nausea, vomiting, diarrhea, abdominal pain and dysuria. He still makes urine. The patient apparently took his dose of nifedipine and carvedilol prior to arrival at the emergency room. EMS administered 500 mL of normal saline bolus prior to arrival at the emergency room. In the emergency department he was noted to have temperature of 97.8 degrees Fahrenheit, pulse 61, respiratory rate 18, blood pressure 83/60, and oxygen saturation 100% on room air. Initial laboratory studies showed white blood cell count of 6380 with urinalysis showing WBCs 11-20. The patient urinated in a urinal for both urinalysis and urine culture. PAST MEDICAL HISTORY 1. Diabetes mellitus, type 2. 2. Hypertension. 3. Coronary artery disease. 4. Atrial fibrillation. 5. Congestive heart failure. 6. End-stage renal disease. PAST SURGICAL HISTORY 1. Left arm AV fistula creation. 2. PermCath placement. ALLERGIES: MEPERIDINE. MEDICATIONS: The current antibiotic is ceftriaxone 1 g IV piggyback q.24 h. She received cefepime 1 g and vancomycin 1 g yesterday. IMMUNIZATIONS: She received both influenza and pneumococcal vaccinations prior to admission. FAMILY HISTORY: Significant for diabetes mellitus and hypertension. SOCIAL HISTORY: No alcohol or tobacco use. REVIEW OF SYSTEMS: As per history of present illness. Currently, the patient feels great and denies fever, chills, cough, shortness of breath, nausea, vomiting, diarrhea, abdominal pain, dysuria. PHYSICAL EXAMINATION GENERAL: No acute distress. Does not appear toxic. VITAL SIGNS: T-max 98.6, pulse 73, respiratory rate 18, blood pressure 120/60. Weight 193 pounds. HEENT: Normocephalic. There is no icterus or injection of conjunctivae. There is no ear or nasal discharge. Moist oral mucosa. No pharyngeal erythema or exudate. NECK: Supple. No lymphadenopathy. LUNGS: Clear to auscultation. Good air entry bilaterally. HEART: Normal S1 and S2. ABDOMEN: Soft, nontender. EXTREMITIES: There is no edema. SKIN: There is no acute erythema. SPLITTING MACHINE FEEDER: Awake, alert and oriented to person, place and time. Nonfocal. LABORATORY: WBC 6160, hemoglobin 10.1, platelets 176,000, neutrophils 73.6, lymphocytes 8.9, monos 10.9, eosinophils 5.7, basophils 0.6. Blood glucose 180. Urine culture is growing gram-negative bacillus. Blood cultures showed no growth. Chest x-ray showed no acute radiographic abnormality. IMPRESSION 1. Hypotension is most likely due to hypovolemia from excessive fluid removal on hemodialysis. Sepsis appears less likely, although it cannot be totally excluded. 2. Questionable urinary tract infection versus bacteriuria, present on admission. 3. Diabetes mellitus, type 2. 4. Coronary artery disease. PLAN 1. Nephrology input is appreciated. 2. Antibiotic should be discontinued after dose tomorrow. RADHA RANGEL MD Job#: [id number]
[2017-12-20] MEDS ORDERED: CLONIDINE HCL 0.1 MG TAB PO PRN (12:45)
[2017-12-20 13:42] LABS: BILIRUBIN,URINE NEGATIVE (NEGATIVE); KETONES,URINE NEGATIVE (NEGATIVE); LEUKOCYTE ESTERASE ,URINE TRACE (NEGATIVE); NITRITE,URINE NEGATIVE (NEGATIVE); URINE UROBILINOGEN 0.2 mg/dL (0.2 - 1)
[2017-12-20 13:48] LABS: PROTEIN,URINE DIPSTICK TRACE (NEGATIVE)
[2017-12-20 13:49] LABS: CLARITY,URINE SL CLOUDY (CLEAR); COLOR,URINE YELLOW (YELLOW)
[2017-12-20 13:56] LABS: BACTERIA,URINE RARE /HPF; EPITHELIAL CELLS,URINE FEW /LPF
--- NOTE | 2017-12-20 20:10 | Consultation ---
DATE OF CONSULTATION: December 20, 2017 UROLOGY CONSULTATION Consultation was called by Dr. Lauro Andrade for Dr. Jovanny Chambers even though I see this patient as an outpatient. CHIEF COMPLAINT/REASON FOR CONSULTATION: Urinary tract infection. HISTORY OF PRESENT ILLNESS: Emmett Cuevas is a 77-year-old male patient, who I last saw in my clinic in October. The patient has had phimosis, was set to undergo a slit circumcision, however, was newly diagnosed with dialysis and did not receive clearance for the procedure. PAST MEDICAL HISTORY: As above, end-stage renal disease on hemodialysis, coronary artery disease, congestive heart failure, atrial fibrillation, diabetes mellitus, hypertension, status post right nephrectomy for kidney cancer at [facility] approximately 20 years ago. MEDICATIONS: Please see MAR. ALLERGIES: NKDA. SOCIAL HISTORY: Denied smoking or drinking. FAMILY HISTORY: Denied urologic stones or malignancies. REVIEW OF SYSTEMS: Noncontributory other than for problems mentioned above for 12 organ systems. PHYSICAL EXAMINATION GENERAL: Elderly male, in no acute distress. VITAL SIGNS: Currently is afebrile. Stable vital signs. HEENT: Sclerae anicteric. NECK: Supple. BACK: Without costovertebral angle tenderness bilaterally. ABDOMEN: Soft, nontender, nondistended. No palpable mass. No palpable hernias. No palpable groin lymphadenopathy. : Phallus with severe phimosis, scrotal lesions. Testes with atrophic epididymis. No masses. EXTREMITIES: Nontender. NEURO: Moves all extremities. PSYCH: Alert. Mood appropriate. SKIN: Intact. Normal color. PERTINENT LABORATORY DATA: Urinalysis: 11 to 20 whites, 0 to 5 reds, 1+ blood, 3+ protein. Calcium is 7.8. Hemoglobin 10, hematocrit 32, platelet count 161,000, white cell count 6380. Sodium 136, potassium 3.6, chloride 104, bicarb 22, BUN 25, creatinine 3.68, glucose 121. An ultrasound performed on September 2017 showed a solitary left kidney, no hydronephrosis, BPH with volume of 30. IMPRESSION 1. Urinary tract infection. 2. Microscopic hematuria. 3. Phimosis. 4. BPH. 5. End-stage renal disease, on hemodialysis. PLAN: Will place the patient on culture-specific antibiotics. Once the patient has been cleared to perform a circumcision electively, the patient will need a cystoscopy for the hematuria. Thank you for allowing me to participate in the care of your patient. We will be happy to follow him with you. Job#: [id number] GÓMEZ
[2017-12-21] VITALS (8 sets, daily range): BP systolic 137–179; BP diastolic 63–82
[2017-12-21 06:22] LABS: BASOPHILS # (AUTO) 0.1 (0.0-0.1); EOSINOPHILS # (AUTO) 0.4 (0.0-0.4); EOSINOPHILS % 6.1 % (0.0-6.0); HEMATOCRIT 29.2 % (38.2-49.6); HEMOGLOBIN 9.3 g/dL (14.0-18.0); LYMPHOCYTES # (AUTO) 0.6 (1.0-3.2); LYMPHOCYTES % 10.1 % (18.0-39.1); MEAN CORPUSCULAR HGB CONC 31.8 g/dL (31-35); MEAN CORPUSCULAR VOLUME 94.2 fL (81-99); MONOCYTES # (AUTO) 0.6 (0.2-0.8); NEUTROPHILS # (AUTO) 4.1 (2.1-6.9); NEUTROPHILS % 71.3 % (38.7-80.0); PLATELET COUNT 172 x10e3/uL (140-360)
[2017-12-21 06:48] LABS: ALBUMIN 2.6 g/dL (3.5-5.0); ALBUMIN/GLOBULIN RATIO 0.7 (0.8-2.0); ANION GAP 12.3 mmol/L (8-16); CALCIUM 7.8 mg/dL (8.4-10.2); CREATININE, SERUM 4.32 mg/dL (0.72-1.25); POTASSIUM 4.3 mmol/L (3.5-5.1)
[2017-12-21] MEDS: INSULIN LISPRO 100 UNIT/1 ML 3ML VIAL SQ SCH ×3 (08:00→16:30)
[2017-12-21] MEDS: PANTOPRAZOLE SOD 40 MG TABEC PO SCH (08:21)
[2017-12-21] MEDS: CEFTRIAXONE SOD 1 GM VIAL IV SCH (08:22)
[2017-12-21] MEDS: FOLIC ACID 400 MCG PO SCH (08:29)
[2017-12-21] MEDS ORDERED: SODIUM CHLORIDE 0.9% 1000ML 2,000 ML ONE (12:17)
[2017-12-21] MEDS ORDERED: HEPARIN SOD (PORCINE) 1000 UNIT/ML SDV IV PRN (13:00)
[2017-12-21] MEDS ORDERED: SODIUM CHLORIDE 0.9% 1000ML 2,000 ML IV PRN (13:00)
--- NOTE | 2017-12-21 15:34 | Discharge Summary ---
A 77-year-old male patient of mine who recently started on dialysis. He presented to the emergency room with aspiration with hypotension during the dialysis treatment. The patient was saying that he had a prolonged dialysis treatment which made his blood pressure low. ADMITTING IMPRESSION/DIAGNOSES 1. Hypotension secondary to decreased intravascular volume. 2. History of renal failure on hemodialysis. 3. Diabetes mellitus. 4. Hypertension. 5. Coronary artery disease. 6. Urinary tract infection. HOSPITAL COURSE SUMMARY: The patient was admitted with the above diagnosis. The patient's blood pressure medicine was held and IV fluid was given. The patient was monitored in the observation unit. The patient was also given IV antibiotic of Rocephin. The first urine culture has grown gram-negative bacilli. The second urine culture was negative for any growth. For now, upon stabilization, the patient will be discharged home, and the patient was advised to stop taking nifedipine regularly and take it only p.r.n. especially on the days when the patient undergoes dialysis as the patient blood pressure got low after dialysis. The patient was advised to hold all blood pressure medicine prior to dialysis treatments. The patient has p.r.n. now. Upon stabilization, the patient will be discharged home and will be followed up as an outpatient. The patient will need outpatient circumcision treatment. POPPY MEDINA MD Job#: [id number]
== END 2017-12-21 17:19 | disposition home or self-care (01) | DRG 312 ==
LOC: ER 05:48 → ERHOLD 12:14 → MED/SURG2 12:16 → IMCU 13:24 → OBSVTOIN 12-20 13:20
PROVIDERS: ADMIT Internal Medicine; ATTEND Internal Medicine
PROC: 5A1D70Z Performance of Urinary Filtration, Intermittent, Less than 6 Hours Per Day (ICD-10-PCS; principal; 2017-12-21)
DX: I95.3 Hypotension of hemodialysis (principal); I13.2 Hypertensive heart and chronic kidney disease with heart failure and with stage 5 chronic kidney disease, or end stage renal disease; E87.2 Acidosis; E11.22 Type 2 diabetes mellitus with diabetic chronic kidney disease; N18.6 End stage renal disease; E86.0 Dehydration; I48.0 Paroxysmal atrial fibrillation; D64.9 Anemia, unspecified; I25.10 Atherosclerotic heart disease of native coronary artery without angina pectoris; N39.0 Urinary tract infection, site not specified; N47.1 Phimosis; I50.9 Heart failure, unspecified; Z99.2 Dependence on renal dialysis; N40.0 Benign prostatic hyperplasia without lower urinary tract symptoms; Z85.528 Personal history of other malignant neoplasm of kidney; Z90.5 Acquired absence of kidney; B96.89 Other specified bacterial agents as the cause of diseases classified elsewhere
CPT/HCPCS: 36415; 71045; 80048; 80053; 81001; 82550; 82553; 82948; 83605; 83735; 83880; 84100; 84484; 85025; 85610; 85730; 87040; 87086; 87186; 90962; 93005; 96372; 97139; G0378; J0692; J0696; J1644; J3370; J7030; J7040; J7050

== ENCOUNTER → 2018-02-07 | Day surgery (SDC) | payer MEDICARE ==
[~2018-02-07] MED LIST changes: -AMIODARONE HCL200 MG; +BACITRACIN ZINC 15 GM OINT ONE; +BUPIVACAINE 0.25% 30ML SDV INJ ONE; +CEFAZOLIN SOD 1 GM VIAL ONE; +DESFLURANE 240 ML BTL INH ONE; +FENTANYL CITRATE/PF 100MCG/2 ML INJ ONE; +LIDOCAINE HCL 2% LOCAL INJ 5 ML SDV VIAL INJ ONE; +METOCLOPRAMIDE HCL 10 MG/2ML VIAL ONE; +MIDAZOLAM HCL 2 MG/2 ML VIAL ONE; +ONDANSETRON HCL INJ 2 MG/ML VIAL ONE; +PROPOFOL IV EMULSION 10 MG/ML 20 ML VIAL ONE; +SODIUM CHLORIDE 0.9% 500ML 500 ML ONE
--- OUTSIDE RECORDS SUMMARY | 2018-02-07 05:48 | XMS REPORT | Clinical Summary ---
Author Author [facility] [facility] Organization [employer] Address Unknown Phone Unavailable Care Team Providers Care Floorleader Name Role Phone Asked, Pcp PCP Unavailable [...] Whitaker MD VITRECTOMY, ENDOLASER LEFT EYE after 02/06/2017 Social History Tobacco Use Types Packs/Day Years [...] EYE 7:30 AM CDT left eye after 02/06/2017 Results * POC glucose (05/24/2017 6:33 AM) Component Value Ref Range POC glucose 113 (H) 65 - 99 mg/dL Comment: Meter ID: [id number] Business Affairs Manager: Constantino Gallardo Specimen Performing Laboratory [facility] DEPARTMENT OF PATHOLOGY AND GENOMIC MEDICINE [address] [place] [id number] after 02/06/2017 Insurance Payer Benefit Subscriber ID Type Phone Address Plan / Group AETNA MEDICARE AETNA xxxxxxxx O MEDICARE HMO/PPO [facility]
--- OUTSIDE RECORDS SUMMARY | 2018-02-07 05:49 | XMS REPORT | Continuity of Care Document ---
Author Author [facility] Organization [facility] Address [address] [place] [address] Phone Unavailable Care Team Providers Care Oxide Furnace Tender Name Role Phone POPPY MEDINA MD PCP Insurance Providers Guarantor Kristen Gar Address [address] [place] [address] Email PT DECLINED Payer [employer] Medicare Replacement Policy Number [id number] Subscriber's Name Kristen Gar Relationship 18 Self / Same As Patient Group Number [id number] Group Name HMO PRIME Effective Date 15 Advance Directives Directive Response Recorded Date/Time Does the patient have an advance directive? No 12/19/17 2:25pm If yes, is advance directive on file with [facility]? No 09/27/17 4:31am If not on file with [facility] will patient provide a copy? No 09/27/17 4:31am Do you have a Directive to Physician? No 12/19/17 8:46am Do you have a Medical Power of Binder Roller? No 12/19/17 8:46am Do you have an out of hospital Do Not Resuscitate Order? No 12/19/17 8:46am Do you have any special needs we should be aware of? No 12/19/17 8:46am Do you have a support person here with you today? Yes 12/19/17 8:46am Did patient receive Notice of Privacy Practices? Yes 12/19/17 8:46am Did patient receive patient rights and responsibilities? Yes 12/19/17 8:46am Problems Medical Problem Onset Date Status Acute on chronic renal failure Unknown Anemia 03/07/2016 Acute Atrial fibrillation with RVR Unknown ESRD (end stage renal disease) Unknown Hyponatremia Unknown Intermittent atrial fibrillation Unknown Palpitations Unknown Pyelonephritis Unknown UTI (urinary tract infection) Unknown Medications Current Home Medications Medication Dose Units Route Directions Days Qty Instructions Start Date Amiodarone Hcl 200 Mg Tablet Daily Carvedilol 12.5 Mg Tablet 12.5 Mg Oral Twice A Day 60 Tab Cyanocobalamin (Vitamin B-12) 1,000 Mcg Tab 1,000 Mcg Oral Daily 30 Tab Ferrous Sulfate 325 Mg Tablet 65 Mg Oral Daily Folic Acid 400 Mcg Daily Furosemide (Lasix) 40 Mg Tablet 40 Mg Oral Daily 30 Tab Pantoprazole Sodium (Protonix) 40 Mg Tablet.dr 40 Mg Oral Daily Past Home Medications Medication Directions Ordered Status Amiodarone Hcl 200 Mg Tablet, 200 Mg Oral Twice A Day Discontinued Amlodipine Besylate (Norvasc) 5 Mg Tab, 10 Mg Oral Bedtime Discontinued Aspirin 81 Mg Tab.chew, Daily Discontinued Carvedilol 12.5 Mg Tablet, 12.5 Mg Oral Twice A Day Discontinued Carvedilol 6.25 Mg Tablet, 6.25 Mg Oral Twice A Day Discontinued Cefuroxime Axetil (Cefuroxime) 250 Mg Tablet, 500 Mg Oral Twice A Day Discontinued Cefuroxime Axetil (Ceftin) 250 Mg Tablet, 250 Mg Oral Twice A Day Discontinued Cephalexin Monohydrate (Keflex) 500 Mg Capsule, Twice A Day Discontinued Epoetin Alex (Procrit) 10,000 Unit/1 Ml Vial, Weekly Discontinued Ferrous Sulfate, Dried (Iron) 159 Mg Tablet.er, Unknown Dose Discontinued Insulin Human Nph (Humulin N) 100 Units/Ml Ml, Discontinued Insulin Regular, Human (Novolin R) 100 Unit/1 Ml Vial, 5-15 Units Sub-Q Three Times A Day Discontinued Losartan Potassium (Cozaar) 25 Mg Tablet, 50 Mg Oral Daily Discontinued Nifedipine (Nifedipine Er) 90 Mg Tab.er.24, 60 Mg Oral Twice A Day Discontinued Nifedipine (Nifedipine Er) 30 Mg Tab.er.24, 60 Mg Oral Twice A Day Discontinued Nifedipine (Nifedipine Er) 30 Mg Tab.er.24, 60 Mg Oral Daily Discontinued Nifedipine (Nifedical Xl) 60 Mg Tab.er.24, 60 Mg Oral Daily Discontinued Pantoprazole Sodium (Protonix) 40 Mg Tablet.dr, 40 Mg Oral Daily Discontinued Sodium Polystyrene Sulfonate 15 Gm/60 Ml Oral.susp, 120 Ml Daily Discontinued Tamsulosin Hcl (Flomax*) 0.4 Mg Cap, 0.4 Mg Oral Bedtime 01/13/17 Discontinued Migdalia Middletonen Discontinued Warfarin Sodium (Coumadin) 2.5 Mg Tablet, 2.5 Mg Oral Today At 5:00PM Discontinued Warfarin Sodium 2 Mg Tablet, 2 Mg Oral Daily Discontinued Social History Social History Problem Response Recorded Date/Time Onset Date Status Hx Psychiatric Problems No 12/19/2017 2:25pm Not Applicable Not Applicable Hx Eating Disorder No 12/19/2017 2:25pm Not Applicable Not Applicable Hx Substance Use Disorder No 12/19/2017 2:25pm Not Applicable Not Applicable Hx Depression No 12/19/2017 2:25pm Not Applicable Not Applicable Hx Alcohol Use Yes 12/19/2017 2:25pm Not Applicable Not Applicable Hx Substance Use Treatment No 12/19/2017 2:25pm Not Applicable Not Applicable Hx Physical Abuse No 12/19/2017 2:25pm Not Applicable Not Applicable Smoking Status Start Date Stop Date Former smoker Hospital Discharge Instructions No hospital discharge instruction information available. Plan of Care Discharge Date 12/21/17 5:19pm Disposition HOME, SELF-CARE Instructions/Education Provided Hemodialysis Prescriptions See Medication Section Referrals (Internal Medicine) Order Date: 2 Days Entered Date: 12/21/2017 9:54am CARMINE CHAN (Nephrology) Order Date: 1-2 Weeks Entered Date: 12/21/2017 10:50am Address: [address] [place] [address] [place] [address] PANCHITO OKEEFE MD (Urology) Order Date: 1 Week Entered Date: 12/21/2017 10:50am Address: [address] [place] [address] Functional Status Query Response Date Recorded Assistive Devices None December 19, 2017 2:32pm Ambulation Ability Independent December 19, 2017 2:32pm Toileting Ability Independent December 19, 2017 2:32pm Allergies, Adverse Reactions, Alerts Allergen Type Severity Reaction Status Last Updated Meperidine Allergy Unknown HALLUCINATIONS Active 07/23/17 Immunizations No immunization information available. Vital Signs Acute Vital Signs Vital Response Date/Time Temperature (Fahrenheit) 97.5 degrees F (97.6 - 99.5) 12/21/2017 11:17am Pulse Pulse Rate (adult) 70 bpm (60 - 90) 12/21/2017 3:14pm Respiratory Rate 10 bpm (12 - 24) 12/21/2017 3:14pm Blood Pressure 174/78 mm Hg 12/21/2017 3:14pm Height 5 ft 8 in 12/19/2017 5:56am Weight 193.50 lb 12/19/2017 2:25pm Body Mass Index 29.4 kg/m^2 12/19/2017 2:25pm Results Laboratory Results Test Name Result Units Flags Reference Collection Date/Time Result Date/ Time Comments Metamyelocytes % 1 % H 0-0 07/26/2017 6:35am 07/26/2017 8:32am Blast Cells % 1 07/26/2017 6:35am 07/26/2017 8:32am Stool Occult Blood POSITIVE H NEGATIVE 07/25/2017 9:20am 07/25/2017 9: 38am Lipase 34 U/L 8-78 09/27/2017 12:47am 09/27/2017 1:31am Differential Total Cells Counted 100 11/24/2017 8:00am 11/24/2017 8 :58am Neutrophils % (Manual) 74 % 40-74 11/24/2017 8:00am 11/24/2017 8:58am Band Neutrophils % 1 % 11/21/2017 6:10am 11/21/2017 12:31pm Lymphocytes % (Manual) 9 % L 19-48 11/24/2017 8:00am 11/24/2017 8:58am Monocytes % (Manual) 9 % 3.4-9.0 11/24/2017 8:00am 11/24/2017 8:58am Eosinophils % (Manual) 7 % 0-7 11/24/2017 8:00am 11/24/2017 8:58am Basophils % (Manual) 1 % 0-1.5 11/24/2017 8:00am 11/24/2017 8:58am Platelet Estimate ADEQUATE 11/24/2017 8:00am 11/24/2017 8:58am Platelet Morphology Comment NORMAL 11/24/2017 8:00am 11/24/2017 8: 58am Hypochromasia SLIGHT 11/24/2017 8:00am 11/24/2017 8:58am Anisocytosis SLIGHT 11/24/2017 8:00am 11/24/2017 8:58am Red Cell Morphology Comment NORMAL 11/24/2017 8:00am 11/24/2017 8: 58am Influenza Virus Types A,B Antigen NEGATIVE NEGATIVE 11/20/2017 11: 00am 11/20/2017 12:10pm Uric Acid 11.3 mg/dL H 3.5-7.2 11/21/2017 6:10am 11/21/2017 1:37pm Iron Level 78 ug/dL 65-175 11/21/2017 6:10a11/21/2017 11:39am --- 11/21/17 1139 --- FE previously reported as: 79 ug/dL Total Iron Binding Capacity 346 ug/dL 261-478 11/21/2017 6:10a2017 11:39am Percent Iron Saturation 23 % 15-50 11/21/2017 6:10a11/21/2017 11: 39am Transferrin 247 mg/dL 174-364 11/21/2017 6:10a11/21/2017 11:39am Ferritin 70.13 ng/mL 21.81-274.66 11/21/2017 6:10a11/21/2017 8:30am Triglycerides Level 102 MG/DL 0-149 11/21/2017 6:10am 11/21/2017 1: 37pm Cholesterol Level 137 MD/DL 0-199 11/21/2017 6:10a11/21/2017 1:37pm Less than 200 mg/dL Low Risk 201 - 239 mg/dL Borderline Risk 240 mg/dl and greater High Risk LDL Cholesterol 93 MG/DL 60-130 11/21/2017 6:10am 11/21/2017 1:37pm HDL Cholesterol 24 MG/DL L 40-60 11/21/2017 6:10am 11/21/2017 1:37pm Cholesterol/HDL Ratio 5.7 H 3.9-4.7 11/21/2017 6:10am 11/21/2017 1: 37pm Thyroid Stimulating Hormone (TSH) 3.283 uIU/mL 0.350-4.940 11/21/2017 6: 10am 11/21/2017 1:53pm Hepatitis B Surface Antibody, Quant <3.1 mIU/mL L Immunity>9.9 2017 3:40pm 11/23/2017 6:01am Status of Immunity Anti- HBs Level Inconsistent with Immunity 0.0 - 9.9 Consistent with Immunity >9.9 Hepatitis B Core Total Antibody Negative Negative 11/22/2017 3:40pm 11/23/2017 6:01am Performed at: - [facility] [address] [id number] Thread Puller: Franko Dumont MD, Phone: [phone] Hepatitis A IgM Antibody Negative 11/22/2017 3:40pm 11/25/2017 10: 26am Hepatitis B Surface Antigen Negative 11/22/2017 3:40pm 11/25/2017 10:26am Hepatitis B Core IgM Antibody Negative 11/22/2017 3:40pm 2017 10:26am Hepatitis C Antibody <0.1 11/22/2017 3:40pm 11/25/2017 10:26am Reference Range: 0.0 - 0.9 s/co ratio Negative: < 0.8 Indeterminate: 0.8 - 0.9 Positive: > 0.9 The CDC recommends that a positive HCV antibody result be followed up with a HCV Nucleic Acid Amplification test (337472). [facility] [address] [id number] Dir: Franko Dumont MD For inquiries, the physician may contact Branch: [phone] Lab: [phone] Parathyroid Hormone 119 pg/mL H 15-65 11/21/2017 6:10am 11/23/2017 6: 00am Calcium (Send out) 8.2 mg/dL L 8.6-10.2 11/21/2017 6:10am 11/23/2017 6: 00am Parathyroid Hormone Interpretation Comment . 11/21/2017 6:10am 2017 6:00am Interpretation Intact PTH Calcium (pg/mL) (mg/dL) Normal 15 - 65 8.6 - 10.2 Primary Hyperparathyroidism >65 >10.2 Secondary Hyperparathyroidism >65 <10.2 Non-Parathyroid Hypercalcemia <65 >10.2 Hypoparathyroidism <15 < 8.6 Non-Parathyroid Hypocalcemia 15 - 65 < 8.6 Performed at: HD - [facility] [address] [id number] Thread Puller: Franko Dumont MD, Phone: [phone] Performed at: - [facility] [address] [id number] Thread Puller: Florian Luna MD, Phone: [phone] White Blood Count 5.74 x10e3/uL 4.8-10.8 12/21/2017 5:50am 12/21/2017 6 :27am Red Blood Count 3.10 x10e6/uL L 4.3-5.7 12/21/2017 5:50am 12/21/2017 6: 27am Hemoglobin 9.3 g/dL L 14.0-18.0 12/21/2017 5:50am 12/21/2017 6:27am Hematocrit 29.2 % L 38.2-49.6 12/21/2017 5:50am 12/21/2017 6:27am Mean Corpuscular Volume 94.2 fL 81-99 12/21/2017 5:50am 12/21/2017 6: 27am Mean Corpuscular Hemoglobin 30.0 pg 28-32 12/21/2017 5:50am 12/21/2017 6:27am Mean Corpuscular Hemoglobin Concent 31.8 g/dL 31-35 12/21/2017 5:50am 12/21/2017 6:27am Red Cell Distribution Width 14.0 % 11.7-14.4 12/21/2017 5:50am 2017 6:27am Platelet Count 172 x10e3/uL 140-360 12/21/2017 5:50am 12/21/2017 6: 27am Neutrophils (%) (Auto) 71.3 % 38.7-80.0 12/21/2017 5:50am 12/21/2017 6: 27am Lymphocytes (%) (Auto) 10.1 % L 18.0-39.1 12/21/2017 5:50am 12/21/2017 6 :27am Monocytes (%) (Auto) 11.0 % 4.4-11.3 12/21/2017 5:50am 12/21/2017 6: 27am Eosinophils (%) (Auto) 6.1 % H 0.0-6.0 12/21/2017 5:50am 12/21/2017 6: 27am Basophils (%) (Auto) 1.0 % 0.0-1.0 12/21/2017 5:50am 12/21/2017 6:27am IM GRANULOCYTES % 0.5 % 0.0-1.0 12/21/2017 5:50am 12/21/2017 6:27am Neutrophils # (Auto) 4.1 2.1-6.9 12/21/2017 5:50am 12/21/2017 6:27am Lymphocytes # (Auto) 0.6 L 1.0-3.2 12/21/2017 5:50am 12/21/2017 6: 27am Monocytes # (Auto) 0.6 0.2-0.8 12/21/2017 5:50am 12/21/2017 6:27am Eosinophils # (Auto) 0.4 0.0-0.4 12/21/2017 5:50am 12/21/2017 6:27am Basophils # (Auto) 0.1 0.0-0.1 12/21/2017 5:50am 12/21/2017 6:27am Absolute Immature Granulocyte (auto 0.03 x10e3/uL 0-0.1 12/21/2017 5: 50am 12/21/2017 6:27am Prothrombin Time 13.8 seconds 11.9-14.5 12/19/2017 6:04am 12/19/2017 6: 51am Prothromb Time International Ratio 1.15 12/19/2017 6:04am 2017 6:51am Oral Anticoagulant Therapy INR Values: 1. Low Intensity Therapy 1.5 - 2.0 2. Moderate Intensity Therapy 2.0 - 3.0 3. High Intensity Therapy(1) 2.5 - 3.5 4. High Intensity Therapy(2) 3.0 - 4.0 5. Panic Value INR > 5.0 Activated Partial Thromboplast Time 28.3 seconds 23.8-35.5 12/19/2017 6: 04am 12/19/2017 6:51am Urine Color YELLOW YELLOW 12/20/2017 10:00am 12/20/2017 1:49pm Urine Clarity SL CLOUDY H CLEAR 12/20/2017 10:00am 12/20/2017 1:49pm Urine Specific [place] 1.010 1.010-1.025 12/20/2017 10:00am 2017 1:49pm Urine pH 7 5 - 7 12/20/2017 10:00am 12/20/2017 1:49pm Urine Leukocyte Esterase TRACE H NEGATIVE 12/20/2017 10:00am 2017 1:49pm Urine Nitrite NEGATIVE NEGATIVE 12/20/2017 10:00am 12/20/2017 1:49pm Urine Protein TRACE H NEGATIVE 12/20/2017 10:00am 12/20/2017 1:49pm Urine Glucose (UA) TRACE H NEGATIVE 12/20/2017 10:00am 12/20/2017 1: 49pm Urine Ketones NEGATIVE NEGATIVE 12/20/2017 10:00am 12/20/2017 1:49pm Urine Urobilinogen 0.2 mg/dL 0.2 - 1 12/20/2017 10:00am 12/20/2017 1: 49pm Urine Bilirubin NEGATIVE NEGATIVE 12/20/2017 10:00am 12/20/2017 1: 49pm Urine Blood NEGATIVE NEGATIVE 12/20/2017 10:00am 12/20/2017 1:49pm Urine WBC 6-10 /HPF H 0-5 12/20/2017 10:00am 12/20/2017 1:57pm Urine RBC NONE /HPF 0-5 12/20/2017 10:00am 12/20/2017 1:57pm Urine Bacteria RARE /HPF NONE 12/20/2017 10:00am 12/20/2017 1:57pm Urine Epithelial Cells FEW /LPF NONE 12/20/2017 10:00am 12/20/2017 1: 57pm Sodium Level 139 mmol/L 136-145 12/21/2017 5:50am 12/21/2017 7:04am Potassium Level 4.3 mmol/L 3.5-5.1 12/21/2017 5:50am 12/21/2017 7:04am Chloride Level 108 mmol/L H 98-107 12/21/2017 5:50am 12/21/2017 7:04am Carbon Dioxide Level 23 mmol/L 22-29 12/21/2017 5:50am 12/21/2017 7: 04am Anion Gap 12.3 mmol/L 8-16 12/21/2017 5:50am 12/21/2017 7:04am Blood Urea Nitrogen 32 mg/dL H 7-26 12/21/2017 5:50am 12/21/2017 7:04am Creatinine 4.32 mg/dL H 0.72-1.25 12/21/2017 5:50am 12/21/2017 7:04am BUN/Creatinine Ratio 7 6-12/21/2017 5:50am 12/21/2017 7:04am Estimat Glomerular Filtration Rate 13 ML/MIN L 60- 12/21/2017 5:50am 7:04am Ranges were taken from the National Kidney Disease Education Program and the National Kidney Foundation literature. Reference ranges: 60 or greater: Normal 16-59 (for 3 consecutive months): Chronic kidney disease 15 or less: Kidney failure Glucose Level 181 mg/dL H 74-118 12/21/2017 5:50am 12/21/2017 7:04am Calcium Level 7.8 mg/dL L 8.4-10.2 12/21/2017 5:50am 12/21/2017 7:04am Bedside Glucose 148 mg/dL H 70-120 12/21/2017 12:00pm 12/21/2017 12: 11pm Meter ID: [id number] Lactic Acid Level 27.5 MG/DL H 4.5-19.8 12/19/2017 6:04am 12/19/2017 7: 03am Phosphorus Level 4.1 MG/DL 2.3-4.7 12/20/2017 6:10am 12/20/2017 7:38am Magnesium Level 1.9 MG/DL 1.3-2.1 12/20/2017 6:10am 12/20/2017 7:38am Total Bilirubin 0.3 mg/dL 0.2-1.2 12/21/2017 5:50am 12/21/2017 7:04am Aspartate Amino Transf (AST/SGOT) 23 IU/L 5-34 12/21/2017 5:50am 2017 7:04am Alanine Aminotransferase (ALT/SGPT) 29 IU/L 0-55 12/21/2017 5:50am 7:04am Total Protein 6.1 g/dL L 6.5-8.1 12/21/2017 5:50am 12/21/2017 7:04am Albumin 2.6 g/dL L 3.5-5.0 12/21/2017 5:50am 12/21/2017 7:04am Globulin 3.5 g/dL 2.3-3.5 12/21/2017 5:50am 12/21/2017 7:04am Albumin/Globulin Ratio 0.7 L 0.8-2.0 12/21/2017 5:50am 12/21/2017 7: 04am Alkaline Phosphatase 86 IU/L 40-150 12/21/2017 5:50am 12/21/2017 7: 04am B-Type Natriuretic Peptide 240.5 pg/mL H 0-100 12/19/2017 6:04am 2017 7:37am Creatine Kinase 30 IU/L 30-200 12/20/2017 6:10am 12/20/2017 7:18am Creatine Kinase MB 1.10 ng/mL 0.00-5.00 12/20/2017 6:10am 12/20/2017 7: 18am Troponin I 0.020 ng/mL 0-0.300 12/20/2017 6:10am 12/20/2017 7:18am Microbiology Results Procedure Source Organism/Result Collection Date/Time Result Date/Time Result Status Blood Culture Blood NO GROWTH AFTER 48 HOURS 6:04am 12/21/2017 6:21am Preliminary Urine Culture Urine,Clean Catch CITROBACTER KOSERI 12/19/2017 8:15am 12/21 11:14am Preliminary GRAM NEGATIVE BACILLUS 2 12/19/2017 8:15am 12/21/2017 11:14am Preliminary Procedures Procedure Status Date Provider(s) EXCISION OF CECUM, ENDO, DIAGN Completed 07/26/17 RADHA WHITMAN MD EXCISION OF LOWER ESOPHAGUS, ENDO, DIAGN Completed 07/23/17 RADHA WHITMAN MD EXCISION OF STOMACH, PYLORUS, ENDO, DIAGN Completed 07/23/17 RADHA WHITMAN MD TRANSFUSE NONAUT RED BLOOD CELLS IN CENTRAL VEIN, PERC Completed 07/23/17 PPOPY MEDINA MD BYPASS LEFT RADIAL ARTERY TO LOWER ARM VEIN, OPEN APPROACH Completed EVA CATALAN MD INSERTION OF INFUSION DEV INTO SUP VENA CAVA, PERC APPROACH Completed LESTER LUNA MD PERFORMANCE OF URINARY FILTRATION, <6 HRS/DAY Completed 11/23/17 CARMINE CHAN Ultrasound, renal Active 07/24/17 DOMENIC DENTON MD X-ray of chest, two views Active 09/27/17 MOSES MAGANA MD Ultrasound, renal Active 09/27/17 CARMINE CHAN X-ray of chest, two views Active 11/09/17 POPPY MEDINA MD X-ray of chest, two views Active 11/25/17 HIRA ALVAREZ MD Encounters Encounter Location Arrival/Admit Date Discharge/Depart Date Attending Provider Discharged Inpatient [facility] 12/20/17 1:20pm 12/21/17 5:19pm POPPY MEDINA MD Discharged Inpatient [facility] 11/20/17 3:41pm 11/25/17 4:30pm POPPY MEDINA MD Registered Clinic [facility] 11/09/17 5:02pm POPPY MEDINA MD Discharged Inpatient (obs) [facility] 09/27/17 3:52am 11:52am POPPY MEDINA MD Discharged Inpatient [facility] 07/23/17 2:58pm 07/27/17 10:20am POPPY MEDINA MD Registered Clinic [facility] 03/26/17 6:00am PANCHITO OKEEFE MD
[2018-02-07 06:07] LABS: BASOPHILS # (AUTO) 0.1 (0.0-0.1); EOSINOPHILS # (AUTO) 0.4 (0.0-0.4); EOSINOPHILS % 6.3 % (0.0-6.0); HEMATOCRIT 35.2 % (38.2-49.6); HEMOGLOBIN 11.7 g/dL (14.0-18.0); LYMPHOCYTES # (AUTO) 0.8 (1.0-3.2); LYMPHOCYTES % 11.9 % (18.0-39.1); MEAN CORPUSCULAR HEMOGLOBIN 31.5 pg (28-32); MEAN CORPUSCULAR HGB CONC 33.2 g/dL (31-35); MEAN CORPUSCULAR VOLUME 94.6 fL (81-99); MONOCYTES # (AUTO) 0.7 (0.2-0.8); MONOCYTES % 11.7 % (4.4-11.3); NEUTROPHILS # (AUTO) 4.3 (2.1-6.9); NEUTROPHILS % 68.8 % (38.7-80.0); PLATELET COUNT 207 x10e3/uL (140-360); RED BLOOD COUNT 3.72 x10e6/uL (4.3-5.7); RED CELL DISTRIBUTION WIDTH 14.3 % (11.7-14.4)
[2018-02-07 06:17] LABS: INR 1.14; PARTIAL THROMBOPLASTIN TIME 27.5 seconds (23.8-35.5); PROTHROMBIN TIME 13.7 seconds (11.9-14.5)
[2018-02-07 06:18] LABS: ANION GAP 16.5 mmol/L (8-16); CALCIUM 8.7 mg/dL (8.4-10.2); CREATININE, SERUM 4.74 mg/dL (0.72-1.25); POTASSIUM 4.5 mmol/L (3.5-5.1)
--- NOTE | 2018-02-07 08:25 | Operative Report ---
DATE OF PROCEDURE: February 07, 2018 PREOPERATIVE DIAGNOSES 1. Severe phimosis. 2. Glandular adhesions. 3. End-stage renal disease. POSTOPERATIVE DIAGNOSES 1. Severe phimosis. 2. Glandular adhesions. 3. End-stage renal disease. PROCEDURE: Slit circumcision. ANESTHESIA: General. ESTIMATED BLOOD LOSS: Minimal. COMPLICATIONS: None. INDICATIONS: Mr. Cuevas is a 77-year-old male in end-stage renal failure, who has not retracted his foreskin for several years. He now presents with question of infection for slit. He voiced understanding. For his end-stage renal disease, should he elect to undergo a circumcision in the future, it will need to be done in a staged fashion to ensure that the slit will open. With the setting of infection and end-stage renal disease, he is likely poor healing. For now, we will obtain a slit and see how this progresses. After informed consent was obtained and the patient had explicit understanding of the risks, benefits and alternatives, he elected to proceed. PROCEDURE IN DETAIL: After informed consent was obtained, the patient was taken to the operating suite and placed supine on the operating table, and underwent general anesthesia. At this time, the penis was prepped as possible in the dorsum line. A hemostatic clamp was inserted. There was approximately 1.5 cm of dense scarred tissue, which was bluntly dissected away from the glans. This incision was carried down to the dorsum to the level of the penile shaft. At this time, the foreskin could be retracted. Several other glandular adhesions were broken. Meticulous hemostasis was obtained in a bipolar fashion with pickups and monopolar cautery. At this time, with excellent hemostasis, both wounds were closed with a running 3-0 chromic gut suture. The wound was dressed. The patient was awakened from anesthesia, and transported to the recovery room in excellent condition with the foreskin replaced on normal anatomic position. Job#: [id number] MULUGETA
== END | disposition home or self-care (01) ==
LOC: OR 05:46
PROVIDERS: ATTEND Urology
DX: N47.1 Phimosis (principal); N48.89 Other specified disorders of penis; E11.22 Type 2 diabetes mellitus with diabetic chronic kidney disease; I12.0 Hypertensive chronic kidney disease with stage 5 chronic kidney disease or end stage renal disease; N18.6 End stage renal disease; N39.0 Urinary tract infection, site not specified; R35.1 Nocturia; R80.9 Proteinuria, unspecified; K21.9 Gastro-esophageal reflux disease without esophagitis; Z99.2 Dependence on renal dialysis; Z90.5 Acquired absence of kidney; Z85.528 Personal history of other malignant neoplasm of kidney; Z80.51 Family history of malignant neoplasm of kidney
CPT/HCPCS: 36415; 54001; 80048; 82948; 85025; 85610; 85730; J0690; J2001; J2250; J2405; J2765; J7040

== ENCOUNTER → 2018-12-20 | Outpatient (CLI) | payer MEDICARE ==
[~2018-12-20] MED LIST changes: -BACITRACIN ZINC 15 GM OINT ONE; -BUPIVACAINE 0.25% 30ML SDV INJ ONE; -CEFAZOLIN SOD 1 GM VIAL ONE; -DESFLURANE 240 ML BTL INH ONE; -FENTANYL CITRATE/PF 100MCG/2 ML INJ ONE; -LIDOCAINE HCL 2% LOCAL INJ 5 ML SDV VIAL INJ ONE; -METOCLOPRAMIDE HCL 10 MG/2ML VIAL ONE; -MIDAZOLAM HCL 2 MG/2 ML VIAL ONE; -ONDANSETRON HCL INJ 2 MG/ML VIAL ONE; -PROPOFOL IV EMULSION 10 MG/ML 20 ML VIAL ONE; -SODIUM CHLORIDE 0.9% 500ML 500 ML ONE
--- NOTE | 2018-12-20 16:36 | Diagnostic Imaging Report ---
Exam: Bilateral hips 2 views History: Osteoarthritis Comparison: None. Findings: No acute, displaced fracture or dislocation. The femoral heads project appropriately over the acetabula. Mild symmetric joint space narrowing with marginal acetabular osteophytosis. Atherosclerotic vascular calcifications with otherwise unremarkable soft tissues. Impression: No acute osseous abnormalities. 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 Signed by: Dr. Roly Castellon M.D. on 12/20/2018 4:33 PM
== END ==
LOC: RAD 15:39
PROVIDERS: ATTEND Nurse Practitioner Adult Health
DX: M16.0 Bilateral primary osteoarthritis of hip (principal)
CPT/HCPCS: 73521

== ENCOUNTER 2019-09-19 17:18 | Emergency (ER) | payer MEDICARE ==
[~2019-09-19] VITALS: Ht 172.7 cm; Wt 87.5 kg
[2019-09-19] MEDS ORDERED: KETOROLAC TROMETHAMINE 10 MG TAB PO ONE (17:45)
[2019-09-19] MEDS ORDERED: HYDROCODONE/APAP 10MG-325MG TAB PO ONE (17:45)
[2019-09-19] MEDS ORDERED: CYCLOBENZAPRINE HCL 10 MG TAB PO ONE (17:45)
--- NOTE | 2019-09-19 20:16 | Diagnostic Imaging Report ---
Exam: Lumbar spine 2 views History: Back pain Comparison: None. Findings: Bone demineralization. No fracture. Skeletal hyperostosis. Multilevel degenerative endplate change. Lower lumbar facet arthrosis. Vascular calcifications. Impression: No acute osseous abnormality Multilevel spondylosis with skeletal hyperostosis Signed by: Dr. Adonis Begum M.D. on 09/19/2019 8:13 PM
== END 2019-09-19 22:42 | disposition home or self-care (01) ==
LOC: ER 17:18
DX: S39.012A Strain of muscle, fascia and tendon of lower back, initial encounter (principal); W18.09XA Striking against other object with subsequent fall, initial encounter; Y93.01 Activity, walking, marching and hiking; Y92.241 Library as the place of occurrence of the external cause; I10 Essential (primary) hypertension; E11.9 Type 2 diabetes mellitus without complications; N28.9 Disorder of kidney and ureter, unspecified; M51.36 Other intervertebral disc degeneration, lumbar region
CPT/HCPCS: 72110; 99284

== ENCOUNTER → 2019-10-16 | Outpatient (CLI) | payer MEDICARE ==
--- NOTE | 2019-10-16 16:29 | Diagnostic Imaging Report ---
Right hip, 2 views Clinical indication: Right hip pain Comparison: 12/10/2018 Findings: AP and frog-leg lateral views of the right hip were obtained. There is no radiographic evidence of acute fracture or dislocation. There is mild joint space narrowing of the right hip. Small acetabular osteophytes are present. Impression: Mild right hip osteoarthrosis without radiographic evidence of acute fracture or dislocation. Signed by: Kyle Lim MD on 10/16/2019 4:26 PM
--- NOTE | 2019-10-16 17:03 | Diagnostic Imaging Report ---
Lumbar spine, 5 views Clinical indications: Back pain Comparison: 09/19/2019 Findings: AP, lateral, bilateral obliques, lateral cone-down view of the lumbosacral spine were obtained. There is no radiographic evidence of acute fracture or subluxation. There are 5 nonrib bearing vertebral bodies of normal. The disc spaces are preserved. Hypertrophic degenerative facet changes are present at L4-L5 and L5-S1. No evidence of spondylolisthesis or spondylolysis. There is hyperostosis of the lower thoracic spine and upper lumbar spine. Impression: 1. No radiographic evidence of acute fracture or subluxation. 2. Multilevel degenerative changes and skeletal hyperostosis. Signed by: Kyle Lim MD on 10/16/2019 5:00 PM
--- NOTE | 2019-10-16 17:04 | Diagnostic Imaging Report ---
Cervical spine, 2 views Clinical indications: Pain Comparison: None Findings: AP and lateral views of the sacrum were obtained. There is no radiographic evidence of acute fracture or dislocation. Degenerative set hypertrophy is present at L4-L5 and L5-S1. Mild degenerative changes of the bilateral sacroiliac joints. Impression: Degenerative changes of the lower lumbar spine and sacroiliac joints. No acute fracture. Signed by: Kyle Lim MD on 10/16/2019 5:01 PM
== END ==
LOC: RAD 14:46
PROVIDERS: ATTEND Internal Medicine
DX: M25.551 Pain in right hip (principal); M54.5 Low back pain; M53.3 Sacrococcygeal disorders, not elsewhere classified; M16.11 Unilateral primary osteoarthritis, right hip; W19.XXXD Unspecified fall, subsequent encounter
CPT/HCPCS: 72110; 72220

== ENCOUNTER → 2020-07-11 | Outpatient (CLI) | payer MEDICARE ==
--- NOTE | 2020-07-11 11:06 | Diagnostic Imaging Report ---
Sacrum, 2 views. History: Sacral pain. Findings: The soft tissues are normal. Bone mineralization is normal. There is no evidence of acute fracture or dislocation. There are no lytic or sclerotic lesions. Degenerative changes are present in the SI joints bilaterally. IMPRESSION: No acute osseous abnormality. Signed by: Molina Lyon on 07/11/2020 11:03 AM
--- NOTE | 2020-07-11 12:56 | Diagnostic Imaging Report ---
Lumbar spine series, 5 views. History: Back pain. Comparison: 10/16/2019. Discussion: The paraspinal soft tissues are unremarkable. The alignment of the lumbar spine is normal. There is no evidence of fracture, spondylolisthesis, or spondylolysis. The intervertebral disc spaces are within normal limits. Diffuse osteophytosis and posterior facet sclerosis are present. There is calcification of abdominal aorta. IMPRESSION: Degenerative changes of the lumbar spine. No acute findings. Signed by: Molina Lyon on 07/11/2020 12:53 PM
== END ==
LOC: RAD 10:07
PROVIDERS: ATTEND Internal Medicine
DX: M47.812 Spondylosis without myelopathy or radiculopathy, cervical region (principal)
CPT/HCPCS: 72110; 72220

== ENCOUNTER → 2020-08-28 | Outpatient (CLI) | payer MEDICARE, OTHER | LOC: SLEEP 19:35 | PROVIDERS: ATTEND Internal Medicine | DX: G47.33 Obstructive sleep apnea (adult) (pediatric) (principal); I48.91 Unspecified atrial fibrillation; Z11.59 Encounter for screening for other viral diseases | CPT/HCPCS: 95811; U0002 ==

== ENCOUNTER 2021-01-26 00:02 | Inpatient (IN) | payer MEDICARE ==
[~2021-01-26] VITALS: Ht 172.7 cm; Wt 112.0 kg
[2021-01-26] VITALS (9 sets, daily range): BP systolic 118–133; BP diastolic 53–63
[2021-01-26] MEDS ORDERED: CEFEPIME HCL 1GM 1 GM in SODIUM CHLORIDE 0.9% 50ML 50 ML IV ONE (00:30)
[2021-01-26] MEDS ORDERED: VANCOMYCIN 1GM/NS 250 ML 250 ML IV ONE (00:30)
[2021-01-26 00:39] LABS: BASOPHILS # (AUTO) 0.1 (0.0-0.1); BASOPHILS % 0.7 % (0.0-1.0); EOSINOPHILS # (AUTO) 0.3 (0.0-0.4); EOSINOPHILS % 4.6 % (0.0-6.0); HEMATOCRIT 34.4 % (38.2-49.6); HEMOGLOBIN 11.3 g/dL (14.0-18.0); LYMPHOCYTES # (AUTO) 1.1 (1.0-3.2); MEAN CORPUSCULAR HEMOGLOBIN 29.8 pg (28-32); MEAN CORPUSCULAR HGB CONC 32.8 g/dL (31-35); MEAN CORPUSCULAR VOLUME 90.8 fL (81-99); MONOCYTES # (AUTO) 0.8 (0.2-0.8); MONOCYTES % 12.5 % (4.4-11.3); NEUTROPHILS # (AUTO) 4.3 (2.1-6.9); NEUTROPHILS % 64.8 % (38.7-80.0); PLATELET COUNT 309 x10e3/uL (140-360); RED BLOOD COUNT 3.79 x10e6/uL (4.3-5.7); RED CELL DISTRIBUTION WIDTH 12.6 % (11.7-14.4)
[2021-01-26 00:52] LABS: ALBUMIN 2.9 g/dL (3.5-5.0); ALBUMIN/GLOBULIN RATIO 0.7 (0.8-2.0); ANION GAP 17.6 mmol/L (8-16); CALCIUM 8.1 mg/dL (8.4-10.2); CREATININE, SERUM 5.88 mg/dL (0.72-1.25); POTASSIUM 3.6 mmol/L (3.5-5.1)
[2021-01-26] MEDS ORDERED: LIDOCAINE 4% PATCH TP PRN (12:15)
[2021-01-26] MEDS ORDERED: BENZONATATE 100 MG CAP PO PRN (12:15)
[2021-01-26] MEDS ORDERED: DEXTROSE 50% SYRINGE 50 ML IV PRN ×3 (12:15→20:15)
[2021-01-26] MEDS ORDERED: CHLORASEPTIC SPRAY 177 ML BTL MM PRN (12:15)
[2021-01-26] MEDS ORDERED: ONDANSETRON HCL INJ 2MG/ML 2ML 2 MG/ML VIAL IV PRN (12:15)
[2021-01-26] MEDS ORDERED: DOCUSATE SODIUM 100 MG CAP PO PRN (12:15)
[2021-01-26] MEDS ORDERED: POLYETHYLENE GLYCOL 3350 17 GM PACK PO PRN (12:15)
[2021-01-26] MEDS ORDERED: ACETAMINOPHEN 325 MG TAB PO PRN (12:15)
[2021-01-26] MEDS ORDERED: HYDRALAZINE HCL 20 MG/ML VIAL IV PRN (12:15)
[2021-01-26] MEDS ORDERED: SIMETHICONE 80 MG CHEW PO PRN (12:15)
[2021-01-26] MEDS ORDERED: ALBUTEROL/IPRATROPIUM 3 ML NEB NEB PRN (12:15)
[2021-01-26] MEDS ORDERED: DIPHENHYDRAMINE HCL 25 MG CAP PO PRN (12:15)
[2021-01-26] MEDS ORDERED: CEFTRIAXONE SOD 1 GM/50 ML BAG IV SCH (12:30)
[2021-01-26 12:41] LABS: % IRON SATURATION 26 % (15-50); IRON 107 ug/dL (65-175); TOTAL IRON BINDING CAPACITY 416 ug/dL (261-478); TRANSFERRIN 297 mg/dL (174-364)
[2021-01-26] MEDS: CEFTRIAXONE SOD 1 GM in SODIUM CHLORIDE 0.9% 50ML 50 ML IV SCH (14:00)
[2021-01-26] MEDS ORDERED: SODIUM CHLORIDE 0.9% 250ML 250 ML ONE (14:10)
[2021-01-26] MEDS: HYDROCODONE/APAP 5MG-325MG TAB PO PRN ×2 (15:35→21:42)
[2021-01-26] MEDS: CARVEDILOL 12.5 MG TAB PO SCH (17:11)
[2021-01-26] MEDS ORDERED: NOVOLIN N100 UNIT/1 SC (20:05)
[2021-01-26] MEDS: AMIODARONE HCL 200 MG TAB PO SCH (20:26)
[2021-01-26] MEDS: HEPARIN SOD (PORCINE) 5,000 UNIT/ML VIAL SC SCH (20:26)
[2021-01-26] MEDS: INSULIN LISPRO 100 UNIT/1 ML 3ML VIAL SQ SCH (20:26)
[2021-01-27 00:37] VITALS: BP 120/62
[2021-01-27 04:00] VITALS: BP 140/50
[2021-01-27 05:13] LABS: BASOPHILS # (AUTO) 0.1 (0.0-0.1); BASOPHILS % 0.6 % (0.0-1.0); EOSINOPHILS # (AUTO) 0.3 (0.0-0.4); EOSINOPHILS % 4.4 % (0.0-6.0); HEMATOCRIT 31.9 % (38.2-49.6); HEMOGLOBIN 10.7 g/dL (14.0-18.0); LYMPHOCYTES # (AUTO) 0.8 (1.0-3.2); LYMPHOCYTES % 10.4 % (18.0-39.1); MEAN CORPUSCULAR HEMOGLOBIN 30.4 pg (28-32); MEAN CORPUSCULAR HGB CONC 33.5 g/dL (31-35); MEAN CORPUSCULAR VOLUME 90.6 fL (81-99); MONOCYTES # (AUTO) 0.8 (0.2-0.8); MONOCYTES % 9.8 % (4.4-11.3); NEUTROPHILS # (AUTO) 5.8 (2.1-6.9); NEUTROPHILS % 74.4 % (38.7-80.0); PLATELET COUNT 281 x10e3/uL (140-360); RED BLOOD COUNT 3.52 x10e6/uL (4.3-5.7); RED CELL DISTRIBUTION WIDTH 12.8 % (11.7-14.4)
[2021-01-27 05:36] LABS: ALBUMIN 2.6 g/dL (3.5-5.0); ALBUMIN/GLOBULIN RATIO 0.6 (0.8-2.0); ANION GAP 16.4 mmol/L (8-16); CALCIUM 7.6 mg/dL (8.4-10.2); CREATININE, SERUM 6.86 mg/dL (0.72-1.25); POTASSIUM 4.4 mmol/L (3.5-5.1)
[2021-01-27 06:59] LABS: CHOL/HDL RATIO 4.5 (3.9-4.7); MAGNESIUM 2.2 MG/DL (1.3-2.1)
[2021-01-27 07:20] LABS: THYROID STIMULATING HORMONE 2.117 uIU/mL (0.350-4.940)
[2021-01-27 08:13] VITALS: BP 107/91
[2021-01-27] MEDS: PANTOPRAZOLE SOD 40 MG TABEC PO SCH (08:56)
[2021-01-27] MEDS: INSULIN LISPRO 100 UNIT/1 ML 3ML VIAL SQ SCH ×4 (08:57→23:10)
[2021-01-27 09:00] VITALS: BP 107/91
[2021-01-27] MEDS: CARVEDILOL 12.5 MG TAB PO SCH ×2 (09:00→17:52)
[2021-01-27] MEDS: CYANOCOBALAMIN 1,000 MCG TAB PO SCH (09:00)
[2021-01-27] MEDS: HEPARIN SOD (PORCINE) 5,000 UNIT/ML VIAL SC SCH ×2 (09:07→20:58)
[2021-01-27] MEDS: ASPIRIN 81 MG ENTERIC COATED PO SCH (12:11)
[2021-01-27] MEDS ORDERED: SODIUM CHLORIDE 0.9% 1000ML 2,000 ML ONE (12:55)
[2021-01-27 15:40] VITALS: BP 124/50
[2021-01-27] MEDS: CEFTRIAXONE SOD 1 GM in SODIUM CHLORIDE 0.9% 50ML 50 ML IV SCH (15:46)
[2021-01-27 20:00] VITALS: BP 130/72
[2021-01-27] MEDS: AMIODARONE HCL 200 MG TAB PO SCH (20:57)
[2021-01-27] MEDS: MELATONIN 5 MG TABLET PO PRN (21:06)
[2021-01-28] VITALS (8 sets, daily range): BP systolic 95–143; BP diastolic 36–77
[2021-01-28 06:20] LABS: BASOPHILS # (AUTO) 0.1 (0.0-0.1); BASOPHILS % 0.8 % (0.0-1.0); EOSINOPHILS # (AUTO) 0.2 (0.0-0.4); EOSINOPHILS % 2.8 % (0.0-6.0); HEMATOCRIT 31.9 % (38.2-49.6); HEMOGLOBIN 10.2 g/dL (14.0-18.0); LYMPHOCYTES # (AUTO) 0.9 (1.0-3.2); LYMPHOCYTES % 11.1 % (18.0-39.1); MEAN CORPUSCULAR HEMOGLOBIN 30.9 pg (28-32); MEAN CORPUSCULAR VOLUME 96.7 fL (81-99); MONOCYTES % 13.3 % (4.4-11.3); NEUTROPHILS # (AUTO) 5.5 (2.1-6.9); NEUTROPHILS % 71.7 % (38.7-80.0); PLATELET COUNT 259 x10e3/uL (140-360)
[2021-01-28 07:59] LABS: ANION GAP 18.7 mmol/L (8-16); CREATININE, SERUM 4.82 mg/dL (0.72-1.25); POTASSIUM 4.7 mmol/L (3.5-5.1)
[2021-01-28] MEDS: CYANOCOBALAMIN 1,000 MCG TAB PO SCH (09:20)
[2021-01-28] MEDS: ASPIRIN 81 MG ENTERIC COATED PO SCH (09:20)
[2021-01-28] MEDS: PANTOPRAZOLE SOD 40 MG TABEC PO SCH (09:20)
[2021-01-28] MEDS: CADEXOMER IODINE 30 GM TUBE TOP SCH (09:21)
[2021-01-28] MEDS: INSULIN LISPRO 100 UNIT/1 ML 3ML VIAL SQ SCH ×4 (09:23→21:00)
[2021-01-28] MEDS: HEPARIN SOD (PORCINE) 5,000 UNIT/ML VIAL SC SCH ×2 (09:25→21:00)
[2021-01-28] MEDS: CARVEDILOL 12.5 MG TAB PO SCH ×2 (12:41→17:23)
[2021-01-28] MEDS: CEFTRIAXONE SOD 1 GM in SODIUM CHLORIDE 0.9% 50ML 50 ML IV SCH (13:35)
[2021-01-28] MEDS: HYDROCODONE/APAP 5MG-325MG TAB PO PRN (15:28)
[2021-01-28] MEDS: AMIODARONE HCL 200 MG TAB PO SCH (21:00)
[2021-01-28] MEDS: MELATONIN 5 MG TABLET PO PRN (22:00)
[2021-01-29] VITALS (10 sets, daily range): BP systolic 114–153; BP diastolic 56–96
[2021-01-29 06:08] LABS: BASOPHILS # (AUTO) 0.1 (0.0-0.1); BASOPHILS % 0.7 % (0.0-1.0); EOSINOPHILS # (AUTO) 0.3 (0.0-0.4); EOSINOPHILS % 3.5 % (0.0-6.0); HEMATOCRIT 34.1 % (38.2-49.6); HEMOGLOBIN 10.9 g/dL (14.0-18.0); LYMPHOCYTES # (AUTO) 0.8 (1.0-3.2); LYMPHOCYTES % 9.1 % (18.0-39.1); MEAN CORPUSCULAR HEMOGLOBIN 30.1 pg (28-32); MEAN CORPUSCULAR VOLUME 94.2 fL (81-99); MONOCYTES # (AUTO) 0.9 (0.2-0.8); MONOCYTES % 9.7 % (4.4-11.3); NEUTROPHILS # (AUTO) 7.1 (2.1-6.9); NEUTROPHILS % 76.7 % (38.7-80.0); PLATELET COUNT 273 x10e3/uL (140-360); RED BLOOD COUNT 3.62 x10e6/uL (4.3-5.7); RED CELL DISTRIBUTION WIDTH 12.9 % (11.7-14.4)
[2021-01-29 06:45] LABS: ANION GAP 18.6 mmol/L (8-16); CREATININE, SERUM 6.05 mg/dL (0.72-1.25); POTASSIUM 4.6 mmol/L (3.5-5.1)
[2021-01-29] MEDS: PANTOPRAZOLE SOD 40 MG TABEC PO SCH (07:30)
[2021-01-29] MEDS: INSULIN LISPRO 100 UNIT/1 ML 3ML VIAL SQ SCH ×4 (07:30→21:00)
[2021-01-29] MEDS: CADEXOMER IODINE 30 GM TUBE TOP SCH (09:00)
[2021-01-29] MEDS: HEPARIN SOD (PORCINE) 5,000 UNIT/ML VIAL SC SCH ×2 (09:00→21:00)
[2021-01-29] MEDS: ASPIRIN 81 MG ENTERIC COATED PO SCH (09:00)
[2021-01-29] MEDS: CARVEDILOL 12.5 MG TAB PO SCH ×2 (09:00→17:00)
[2021-01-29] MEDS: CYANOCOBALAMIN 1,000 MCG TAB PO SCH (09:00)
[2021-01-29] MEDS ORDERED: CLOPIDOGREL BISULFATE 75 MG TAB PO ONE (10:30)
[2021-01-29] MEDS: CEFTRIAXONE SOD 1 GM in SODIUM CHLORIDE 0.9% 50ML 50 ML IV SCH (12:15)
[2021-01-29] MEDS ORDERED: IOPAMIDOL 300MG/ML 100 ML INFUS..BTL IV ONE (12:32)
[2021-01-29] MEDS ORDERED: SODIUM CHLORIDE 0.9% 1000ML 1,000 ML ONE ×2 (12:32→13:25)
[2021-01-29] MEDS ORDERED: LIDOCAINE HCL 2% LOCAL 20 ML VIAL ONE ×2 (12:32→14:16)
[2021-01-29] MEDS ORDERED: FENTANYL CITRATE/PF 100MCG/2 ML INJ ONE (12:32)
[2021-01-29] MEDS ORDERED: MIDAZOLAM HCL 2 MG/2 ML VIAL ONE ×2 (12:32→13:22)
[2021-01-29] MEDS ORDERED: HEPARIN SOD/SOD CHLORIDE 2,000 ML ONE (12:32)
[2021-01-29] MEDS ORDERED: VERAPAMIL HCL 2.5 MG/ML 2 ML VIAL ONE (13:25)
[2021-01-29] MEDS ORDERED: CLOPIDOGREL BISULFATE 75 MG TAB ONE (14:15)
[2021-01-29] MEDS ORDERED: SODIUM CHLORIDE 0.9% 250ML 500 ML IV PRN (16:15)
[2021-01-29] MEDS ORDERED: ALBUMIN 25% 12.5GM 0.25 GM/ML BTL IV PRN (16:15)
[2021-01-29] MEDS ORDERED: SODIUM CHLORIDE 0.9% 1000ML 2,000 ML IV PRN (16:15)
[2021-01-29] MEDS: MELATONIN 5 MG TABLET PO PRN (20:15)
[2021-01-29] MEDS: AMIODARONE HCL 200 MG TAB PO SCH (21:00)
[2021-01-29] MEDS: HYDROCODONE/APAP 5MG-325MG TAB PO PRN (21:02)
[2021-01-30] VITALS: BP 119/94
[2021-01-30 05:37] VITALS: BP 132/64
[2021-01-30] MEDS: PANTOPRAZOLE SOD 40 MG TABEC PO SCH (07:30)
[2021-01-30] MEDS: INSULIN LISPRO 100 UNIT/1 ML 3ML VIAL SQ SCH ×3 (07:30→15:41)
[2021-01-30 08:00] VITALS: BP 102/38
[2021-01-30 08:37] VITALS: BP 102/38
[2021-01-30] MEDS: HEPARIN SOD (PORCINE) 5,000 UNIT/ML VIAL SC SCH (09:00)
[2021-01-30] MEDS: ASPIRIN 81 MG ENTERIC COATED PO SCH (09:00)
[2021-01-30] MEDS: CARVEDILOL 12.5 MG TAB PO SCH ×2 (09:00→15:41)
[2021-01-30] MEDS ORDERED: CLOPIDOGREL BISULFATE 75 MG TAB PO SCH ×2 (09:00)
[2021-01-30] MEDS: CYANOCOBALAMIN 1,000 MCG TAB PO SCH (09:00)
[2021-01-30] MEDS: CADEXOMER IODINE 30 GM TUBE TOP SCH (09:00)
[2021-01-30 11:45] VITALS: BP 115/93
[2021-01-30] MEDS ORDERED: ONDANSETRON HCL 4 MG ORAL DISINTEGRATING TAB PO PRN (12:45)
[2021-01-30] MEDS: CEFTRIAXONE SOD 1 GM in SODIUM CHLORIDE 0.9% 50ML 50 ML IV SCH (13:00)
[2021-01-30] MEDS ORDERED: ASPIRIN81 MG PO (13:30)
[2021-01-30] MEDS ORDERED: PLAVIX75 MG PO (13:30)
[2021-01-30] MEDS ORDERED: DOXYCYCLINE HY100 MG PO (15:06)
[2021-01-30] MEDS ORDERED: CIPRO500 MG PO (15:06)
[2021-01-30 15:39] VITALS: BP 126/86
== END 2021-01-30 15:44 | disposition home health service (06) | DRG 270 ==
LOC: ER 00:13 → ERHOLD 01:23 → MED/SURG2 05:10
PROVIDERS: ADMIT Internal Medicine; ATTEND Internal Medicine
PROC: 5A1D70Z Performance of Urinary Filtration, Intermittent, Less than 6 Hours Per Day (ICD-10-PCS; 2021-01-27)
PROC: 047N3Z1 Dilation of Left Popliteal Artery using Drug-Coated Balloon, Percutaneous Approach (ICD-10-PCS; principal; 2021-01-29)
PROC: 04CL3ZZ Extirpation of Matter from Left Femoral Artery, Percutaneous Approach (ICD-10-PCS; 2021-01-29)
PROC: 047U3Z1 Dilation of Left Peroneal Artery using Drug-Coated Balloon, Percutaneous Approach (ICD-10-PCS; 2021-01-29)
PROC: B41D1ZZ Fluoroscopy of Aorta and Bilateral Lower Extremity Arteries using Low Osmolar Contrast (ICD-10-PCS; 2021-01-29)
PROC: 5A1D70Z Performance of Urinary Filtration, Intermittent, Less than 6 Hours Per Day (ICD-10-PCS; 2021-01-29)
DX: E11.52 Type 2 diabetes mellitus with diabetic peripheral angiopathy with gangrene (principal); N18.6 End stage renal disease; I12.0 Hypertensive chronic kidney disease with stage 5 chronic kidney disease or end stage renal disease; L03.116 Cellulitis of left lower limb; I96 Gangrene, not elsewhere classified; E46 Unspecified protein-calorie malnutrition; L97.528 Non-pressure chronic ulcer of other part of left foot with other specified severity; I70.262 Atherosclerosis of native arteries of extremities with gangrene, left leg; I70.92 Chronic total occlusion of artery of the extremities; I48.0 Paroxysmal atrial fibrillation; E11.621 Type 2 diabetes mellitus with foot ulcer; E11.22 Type 2 diabetes mellitus with diabetic chronic kidney disease; S90.32XA Contusion of left foot, initial encounter; D63.8 Anemia in other chronic diseases classified elsewhere; Z99.2 Dependence on renal dialysis; Z85.528 Personal history of other malignant neoplasm of kidney; Z88.8 Allergy status to other drugs, medicaments and biological substances; Z90.5 Acquired absence of kidney; Z82.49 Family history of ischemic heart disease and other diseases of the circulatory system; Z83.3 Family history of diabetes mellitus; Z80.1 Family history of malignant neoplasm of trachea, bronchus and lung; Z79.82 Long term (current) use of aspirin; Z79.4 Long term (current) use of insulin; Z20.822 Contact with and (suspected) exposure to COVID-19
CPT/HCPCS: 36247; 36415; 37228; 37229; 37232; 75716; 80048; 80053; 80061; 82948; 83036; 83540; 83605; 83735; 84100; 84134; 84443; 84466; 85025; 85651; 86140; 87040; 93005; 93306; 93925; 96372; 97139; 99152; 99153; 99251; 99284; C1724; C1725; C1760; C1766; C1769; C1887; J0692; J0696; J1644; J2001; J2250; J3010; J3370; J7030; J7050; Q9967; U0002

== ENCOUNTER → 2021-02-05 | Outpatient (RCR) | payer MEDICARE ==
[~2021-02-05] MED LIST changes: +ASPIRIN81 MG PO; +CIPRO500 MG PO; +COLLAGENASE OINTMENT 30 GM TUBE ONE; +DOXYCYCLINE HY100 MG PO; +LIDOCAINE/PRILOCAINE 2.5-2.5% KIT ONE; +NOVOLIN N100 UNIT/1 SC; +PLAVIX75 MG PO
== END ==
LOC: WCC 16:24
PROVIDERS: ATTEND Podiatrist
DX: E11.621 Type 2 diabetes mellitus with foot ulcer (principal); E11.59 Type 2 diabetes mellitus with other circulatory complications; R09.02 Hypoxemia; L97.521 Non-pressure chronic ulcer of other part of left foot limited to breakdown of skin; I79.8 Other disorders of arteries, arterioles and capillaries in diseases classified elsewhere; I99.8 Other disorder of circulatory system; I10 Essential (primary) hypertension; I48.91 Unspecified atrial fibrillation; N18.6 End stage renal disease

== ENCOUNTER → 2021-02-13 | Outpatient (CLI) | payer MEDICARE ==
[~2021-02-13] MED LIST changes: -COLLAGENASE OINTMENT 30 GM TUBE ONE; -LIDOCAINE/PRILOCAINE 2.5-2.5% KIT ONE
== END ==
LOC: RAD 09:52
PROVIDERS: ATTEND Family Medicine
DX: Z01.810 Encounter for preprocedural cardiovascular examination (principal)
CPT/HCPCS: 71046

== ENCOUNTER → 2021-03-07 | Outpatient (RCR) | payer MEDICARE | LOC: WCC 02-07 16:19 | PROVIDERS: ATTEND Family Medicine Adult Medicine | DX: E11.621 Type 2 diabetes mellitus with foot ulcer (principal); E11.59 Type 2 diabetes mellitus with other circulatory complications; R09.02 Hypoxemia; I99.8 Other disorder of circulatory system; L97.521 Non-pressure chronic ulcer of other part of left foot limited to breakdown of skin; I79.8 Other disorders of arteries, arterioles and capillaries in diseases classified elsewhere; N18.6 End stage renal disease; I10 Essential (primary) hypertension; I48.91 Unspecified atrial fibrillation | CPT/HCPCS: 11042 ×2; 11045 ×2; 97602 ×6; 99212 ×3; 99213 ×4; G0277 ×11 ==

== ENCOUNTER 2021-04-04 11:06 | Outpatient (RCR) | payer MEDICARE ==
[~2021-04-04 11:06] MED LIST changes: +COLLAGENASE OINTMENT 30 GM TUBE ONE; +LIDOCAINE VISC 2% SOLN 15 ML UDC ONE; +LIDOCAINE/PRILOCAINE 2.5-2.5% KIT ONE; +MINERAL OIL/PETROLAT/GLYCERI 6OZ BTL ONE; +MUPIROCIN 2% OINT 22 GM TUBE ONE; +SILVER SULFADIAZINE 50GM CREAM ONE
[2021-04-04] MEDS ORDERED: COLLAGENASE OINTMENT 30 GM TUBE ONE (13:52)
== END 2021-04-07 ==
LOC: WCC 11:06
PROVIDERS: ATTEND Podiatrist
DX: E11.621 Type 2 diabetes mellitus with foot ulcer (principal); E11.59 Type 2 diabetes mellitus with other circulatory complications; R09.02 Hypoxemia; I96 Gangrene, not elsewhere classified; L97.521 Non-pressure chronic ulcer of other part of left foot limited to breakdown of skin; L97.528 Non-pressure chronic ulcer of other part of left foot with other specified severity; I79.8 Other disorders of arteries, arterioles and capillaries in diseases classified elsewhere; I99.8 Other disorder of circulatory system; N18.6 End stage renal disease; I10 Essential (primary) hypertension; I48.91 Unspecified atrial fibrillation; Z01.810 Encounter for preprocedural cardiovascular examination
CPT/HCPCS: 11042 ×3; 36415 ×17; 82948 ×17; 97597 ×2; 97602 ×10; 99213 ×17; G0277 ×17

== ENCOUNTER → 2021-05-07 | Outpatient (RCR) | payer MEDICARE ==
[~2021-05-07] MED LIST changes: -LIDOCAINE/PRILOCAINE 2.5-2.5% KIT ONE; -MINERAL OIL/PETROLAT/GLYCERI 6OZ BTL ONE; -SILVER SULFADIAZINE 50GM CREAM ONE
[2021-05-07 15:29] LABS: BASOPHILS % 0.6 % (0.0-1.0); EOSINOPHILS # (AUTO) 0.2 (0.0-0.4); EOSINOPHILS % 2.4 % (0.0-6.0); HEMATOCRIT 39.1 % (38.2-49.6); HEMOGLOBIN 12.5 g/dL (14.0-18.0); LYMPHOCYTES # (AUTO) 0.6 (1.0-3.2); LYMPHOCYTES % 9.5 % (18.0-39.1); MEAN CORPUSCULAR HEMOGLOBIN 29.9 pg (28-32); MEAN CORPUSCULAR VOLUME 93.5 fL (81-99); MONOCYTES # (AUTO) 0.8 (0.2-0.8); MONOCYTES % 12.5 % (4.4-11.3); NEUTROPHILS # (AUTO) 4.6 (2.1-6.9); NEUTROPHILS % 74.7 % (38.7-80.0); PLATELET COUNT 242 x10e3/uL (140-360); RED BLOOD COUNT 4.18 x10e6/uL (4.3-5.7); RED CELL DISTRIBUTION WIDTH 13.2 % (11.7-14.4)
[2021-05-07 15:46] LABS: ALBUMIN 2.9 g/dL (3.5-5.0); ALBUMIN/GLOBULIN RATIO 0.6 (0.8-2.0); ANION GAP 9.7 mmol/L (8-16); CALCIUM 8.4 mg/dL (8.4-10.2); CREATININE, SERUM 2.72 mg/dL (0.72-1.25); POTASSIUM 3.7 mmol/L (3.5-5.1)
== END ==
LOC: WCC 04-08 10:40
PROVIDERS: ATTEND Podiatrist
DX: E11.621 Type 2 diabetes mellitus with foot ulcer (principal); E11.59 Type 2 diabetes mellitus with other circulatory complications; R09.02 Hypoxemia; I96 Gangrene, not elsewhere classified; L97.528 Non-pressure chronic ulcer of other part of left foot with other specified severity; L97.521 Non-pressure chronic ulcer of other part of left foot limited to breakdown of skin; L97.511 Non-pressure chronic ulcer of other part of right foot limited to breakdown of skin; I99.8 Other disorder of circulatory system; I79.8 Other disorders of arteries, arterioles and capillaries in diseases classified elsewhere; N18.6 End stage renal disease; I10 Essential (primary) hypertension; I48.91 Unspecified atrial fibrillation; Z01.810 Encounter for preprocedural cardiovascular examination
CPT/HCPCS: 11042 ×5; 11043; 11044; 11730; 36415 ×17; 80053; 82948 ×17; 83036; 84134; 85025; 85651; 86140; 88305; 88311; 97597 ×3; 97602 ×14; 99212; 99213 ×15; G0277 ×18; 88304

== ENCOUNTER → 2021-06-03 | Outpatient (CLI) | payer MEDICARE ==
[~2021-06-03] MED LIST changes: -COLLAGENASE OINTMENT 30 GM TUBE ONE; -LIDOCAINE VISC 2% SOLN 15 ML UDC ONE; -MUPIROCIN 2% OINT 22 GM TUBE ONE
== END ==
LOC: MRI 08:47
PROVIDERS: ATTEND Podiatrist
DX: E11.621 Type 2 diabetes mellitus with foot ulcer (principal); L97.521 Non-pressure chronic ulcer of other part of left foot limited to breakdown of skin

== ENCOUNTER 2021-06-06 15:08 | Outpatient (RCR) | payer MEDICARE ==
[~2021-06-06 15:08] MED LIST changes: +COLLAGENASE OINTMENT 30 GM TUBE ONE; +GENTAMICIN SULFATE 15 GM CR TP ONE; +LIDOCAINE VISC 2% SOLN 15 ML UDC ONE
== END 2021-06-07 ==
LOC: WCC 15:08
PROVIDERS: ATTEND Internal Medicine Infectious Disease
DX: E11.621 Type 2 diabetes mellitus with foot ulcer (principal); E11.59 Type 2 diabetes mellitus with other circulatory complications; R09.02 Hypoxemia; L60.1 Onycholysis; I96 Gangrene, not elsewhere classified; L97.521 Non-pressure chronic ulcer of other part of left foot limited to breakdown of skin; L97.528 Non-pressure chronic ulcer of other part of left foot with other specified severity; I79.8 Other disorders of arteries, arterioles and capillaries in diseases classified elsewhere; I99.8 Other disorder of circulatory system; N18.6 End stage renal disease; I10 Essential (primary) hypertension; I48.91 Unspecified atrial fibrillation; Z01.810 Encounter for preprocedural cardiovascular examination
CPT/HCPCS: 11042 ×4; 11044; 36415 ×14; 82948 ×14; 97597 ×2; 97602 ×10; 99212; 99213 ×15; 99214; G0277 ×13

== ENCOUNTER → 2021-07-03 | Outpatient (CLI) | payer MEDICARE ==
[~2021-07-03] MED LIST changes: -COLLAGENASE OINTMENT 30 GM TUBE ONE; -GENTAMICIN SULFATE 15 GM CR TP ONE; -LIDOCAINE VISC 2% SOLN 15 ML UDC ONE
== END ==
LOC: MRI 08:29
PROVIDERS: ATTEND Podiatrist
DX: E11.621 Type 2 diabetes mellitus with foot ulcer (principal); L97.528 Non-pressure chronic ulcer of other part of left foot with other specified severity

== ENCOUNTER 2021-07-07 11:09 | Outpatient (RCR) | payer MEDICARE ==
[~2021-07-07 11:09] MED LIST changes: +COLLAGENASE OINTMENT 30 GM TUBE ONE; +GENTAMICIN SULFATE 15 GM CR TP ONE; +LIDOCAINE/PRILOCAINE 2.5-2.5% KIT ONE; +MUPIROCIN 2% OINT 22 GM TUBE ONE
== END 2021-07-08 ==
LOC: WCC 11:09
PROVIDERS: ATTEND Internal Medicine Infectious Disease
DX: E11.621 Type 2 diabetes mellitus with foot ulcer (principal); E11.59 Type 2 diabetes mellitus with other circulatory complications; R09.02 Hypoxemia; L60.1 Onycholysis; I96 Gangrene, not elsewhere classified; L97.528 Non-pressure chronic ulcer of other part of left foot with other specified severity; L97.428 Non-pressure chronic ulcer of left heel and midfoot with other specified severity; I79.8 Other disorders of arteries, arterioles and capillaries in diseases classified elsewhere; I99.8 Other disorder of circulatory system; N18.6 End stage renal disease; I10 Essential (primary) hypertension; I48.91 Unspecified atrial fibrillation; Z01.810 Encounter for preprocedural cardiovascular examination

== ENCOUNTER 2021-08-06 12:55 | Outpatient (RCR) | payer MEDICARE ==
[~2021-08-06 12:55] MED LIST changes: -COLLAGENASE OINTMENT 30 GM TUBE ONE; -GENTAMICIN SULFATE 15 GM CR TP ONE; -LIDOCAINE/PRILOCAINE 2.5-2.5% KIT ONE; -MUPIROCIN 2% OINT 22 GM TUBE ONE
== END 2021-08-07 ==
LOC: WCC 12:55
PROVIDERS: ATTEND Podiatrist
DX: E11.59 Type 2 diabetes mellitus with other circulatory complications (principal); E11.621 Type 2 diabetes mellitus with foot ulcer; M86.172 Other acute osteomyelitis, left ankle and foot; R09.02 Hypoxemia; L60.1 Onycholysis; L97.528 Non-pressure chronic ulcer of other part of left foot with other specified severity; L97.428 Non-pressure chronic ulcer of left heel and midfoot with other specified severity; I79.8 Other disorders of arteries, arterioles and capillaries in diseases classified elsewhere; I99.8 Other disorder of circulatory system; N18.6 End stage renal disease; I10 Essential (primary) hypertension; I48.91 Unspecified atrial fibrillation; Z01.810 Encounter for preprocedural cardiovascular examination
CPT/HCPCS: 11042 ×3; 15275 ×2; 99213 ×8; Q4160 ×2

== ENCOUNTER 2021-09-05 14:31 | Outpatient (RCR) | payer MEDICARE ==
[2021-09-03 16:07] LABS: BASOPHILS # (AUTO) 0.1 (0.0-0.1); BASOPHILS % 0.8 % (0.0-1.0); EOSINOPHILS # (AUTO) 0.2 (0.0-0.4); EOSINOPHILS % 2.7 % (0.0-6.0); HEMATOCRIT 39.8 % (38.2-49.6); HEMOGLOBIN 13.1 g/dL (14.0-18.0); LYMPHOCYTES # (AUTO) 0.5 (1.0-3.2); LYMPHOCYTES % 8.2 % (18.0-39.1); MEAN CORPUSCULAR HEMOGLOBIN 29.8 pg (28-32); MEAN CORPUSCULAR HGB CONC 32.9 g/dL (31-35); MEAN CORPUSCULAR VOLUME 90.7 fL (81-99); MONOCYTES # (AUTO) 0.8 (0.2-0.8); MONOCYTES % 12.1 % (4.4-11.3); NEUTROPHILS # (AUTO) 4.8 (2.1-6.9); NEUTROPHILS % 75.9 % (38.7-80.0); PLATELET COUNT 242 x10e3/uL (140-360); RED BLOOD COUNT 4.39 x10e6/uL (4.3-5.7); RED CELL DISTRIBUTION WIDTH 16.1 % (11.7-14.4)
[2021-09-03 16:28] LABS: ALBUMIN 2.9 g/dL (3.5-5.0); ALBUMIN/GLOBULIN RATIO 0.6 (0.8-2.0); CALCIUM 8.4 mg/dL (8.4-10.2); CREATININE, SERUM 3.07 mg/dL (0.72-1.25)
[~2021-09-05 14:31] MED LIST changes: +GENTAMICIN SULFATE 15 GM CR TP ONE; +LIDOCAINE VISC 2% SOLN 15 ML UDC ONE; +MINERAL OIL/PETROLAT/GLYCERI 6OZ BTL ONE
== END 2021-09-07 ==
LOC: WCC 14:31
PROVIDERS: ATTEND Podiatrist
DX: E11.621 Type 2 diabetes mellitus with foot ulcer (principal); E11.59 Type 2 diabetes mellitus with other circulatory complications; L97.528 Non-pressure chronic ulcer of other part of left foot with other specified severity; L97.428 Non-pressure chronic ulcer of left heel and midfoot with other specified severity; R09.02 Hypoxemia; N18.6 End stage renal disease; I79.8 Other disorders of arteries, arterioles and capillaries in diseases classified elsewhere; I48.91 Unspecified atrial fibrillation; I10 Essential (primary) hypertension; Z01.810 Encounter for preprocedural cardiovascular examination
CPT/HCPCS: 11042 ×4; 11044; 12020; 15275 ×3; 36415; 73630; 80053; 83036; 84134; 85025; 85651; 86141; 87071; 87075; 87205; 88304; 88311; 97597; 99213 ×10; Q4160 ×3; 88305

== ENCOUNTER 2021-10-01 13:54 | Outpatient (RCR) | payer MEDICARE ==
[~2021-10-01 13:54] MED LIST changes: +LIDOCAINE/PRILOCAINE 2.5-2.5% KIT ONE; -MINERAL OIL/PETROLAT/GLYCERI 6OZ BTL ONE
== END 2021-10-07 ==
LOC: WCC 13:54
PROVIDERS: ATTEND Podiatrist
DX: E11.621 Type 2 diabetes mellitus with foot ulcer (principal); E11.59 Type 2 diabetes mellitus with other circulatory complications; R09.02 Hypoxemia; L97.511 Non-pressure chronic ulcer of other part of right foot limited to breakdown of skin; L97.528 Non-pressure chronic ulcer of other part of left foot with other specified severity; L97.428 Non-pressure chronic ulcer of left heel and midfoot with other specified severity; I79.8 Other disorders of arteries, arterioles and capillaries in diseases classified elsewhere; N18.6 End stage renal disease; I10 Essential (primary) hypertension; I48.91 Unspecified atrial fibrillation; Z01.810 Encounter for preprocedural cardiovascular examination
CPT/HCPCS: 11042 ×2; 11044; 12020; 15275 ×2; 87071; 87075; 87205; 99213 ×12; Q4160

== ENCOUNTER 2021-11-05 13:59 | Outpatient (RCR) | payer MEDICARE | END 2021-11-07 | LOC: WCC 13:59 | PROVIDERS: ATTEND Podiatrist | DX: E11.621 Type 2 diabetes mellitus with foot ulcer (principal); E11.59 Type 2 diabetes mellitus with other circulatory complications; R09.02 Hypoxemia; M86.672 Other chronic osteomyelitis, left ankle and foot; L97.428 Non-pressure chronic ulcer of left heel and midfoot with other specified severity; L97.528 Non-pressure chronic ulcer of other part of left foot with other specified severity; I79.8 Other disorders of arteries, arterioles and capillaries in diseases classified elsewhere; N18.6 End stage renal disease; I10 Essential (primary) hypertension; I48.91 Unspecified atrial fibrillation; Z01.810 Encounter for preprocedural cardiovascular examination | CPT/HCPCS: 11042 ×3; 15275; 97597; 99213 ×2; Q4160 ==

== ENCOUNTER 2021-11-12 12:57 | Outpatient (RCR) | payer MEDICARE ==
[~2021-11-12 12:57] MED LIST changes: -GENTAMICIN SULFATE 15 GM CR TP ONE; -LIDOCAINE VISC 2% SOLN 15 ML UDC ONE; -LIDOCAINE/PRILOCAINE 2.5-2.5% KIT ONE
== END 2021-12-08 ==
LOC: WCC 12:57 → EDSTATUS 13:43
PROVIDERS: ATTEND Podiatrist
DX: E11.621 Type 2 diabetes mellitus with foot ulcer (principal); E11.59 Type 2 diabetes mellitus with other circulatory complications; M86.672 Other chronic osteomyelitis, left ankle and foot; R09.02 Hypoxemia; L97.428 Non-pressure chronic ulcer of left heel and midfoot with other specified severity; L97.528 Non-pressure chronic ulcer of other part of left foot with other specified severity; I79.8 Other disorders of arteries, arterioles and capillaries in diseases classified elsewhere; N18.6 End stage renal disease; I10 Essential (primary) hypertension; I48.91 Unspecified atrial fibrillation; Z01.810 Encounter for preprocedural cardiovascular examination

== ENCOUNTER → 2022-01-19 | Outpatient (CLI) | payer MEDICARE | LOC: RAD 15:33 | PROVIDERS: ATTEND Internal Medicine | DX: M47.812 Spondylosis without myelopathy or radiculopathy, cervical region (principal) | CPT/HCPCS: 72040 ==

== ENCOUNTER 2022-06-05 13:55 | Outpatient (RCR) | payer MEDICARE ==
[2022-06-03 15:59] LABS: BASOPHILS # (AUTO) 0.1 (0.0-0.1); BASOPHILS % 1.2 % (0.0-1.0); EOSINOPHILS # (AUTO) 0.2 (0.0-0.4); EOSINOPHILS % 3.6 % (0.0-6.0); HEMATOCRIT 38.5 % (38.2-49.6); HEMOGLOBIN 12.4 g/dL (14.0-18.0); LYMPHOCYTES # (AUTO) 0.9 (1.0-3.2); LYMPHOCYTES % 13.1 % (18.0-39.1); MEAN CORPUSCULAR HEMOGLOBIN 30.5 pg (28-32); MEAN CORPUSCULAR HGB CONC 32.2 g/dL (31-35); MEAN CORPUSCULAR VOLUME 94.6 fL (81-99); MONOCYTES # (AUTO) 0.8 (0.2-0.8); MONOCYTES % 11.6 % (4.4-11.3); NEUTROPHILS # (AUTO) 4.7 (2.1-6.9); NEUTROPHILS % 70.4 % (38.7-80.0); PLATELET COUNT 238 x10e3/uL (140-360); RED BLOOD COUNT 4.07 x10e6/uL (4.3-5.7); RED CELL DISTRIBUTION WIDTH 14.5 % (11.7-14.4)
[2022-06-03 16:16] LABS: ALBUMIN 2.7 g/dL (3.5-5.0); ALBUMIN/GLOBULIN RATIO 0.6 (0.8-2.0); ANION GAP 12.7 mmol/L (8-16); CALCIUM 8.7 mg/dL (8.4-10.2); CREATININE, SERUM 3.8 mg/dL (0.72-1.25); POTASSIUM 3.7 mmol/L (3.5-5.1)
[~2022-06-05 13:55] MED LIST changes: +COLLAGENASE OINTMENT 30 GM TUBE ONE; +LIDOCAINE VISC 2% SOLN 15 ML UDC ONE
== END 2022-06-07 ==
LOC: WCC 13:55
PROVIDERS: ATTEND Podiatrist
DX: E11.621 Type 2 diabetes mellitus with foot ulcer (principal); E11.59 Type 2 diabetes mellitus with other circulatory complications; I96 Gangrene, not elsewhere classified; R09.02 Hypoxemia; L97.421 Non-pressure chronic ulcer of left heel and midfoot limited to breakdown of skin; L97.518 Non-pressure chronic ulcer of other part of right foot with other specified severity; I79.8 Other disorders of arteries, arterioles and capillaries in diseases classified elsewhere; N18.6 End stage renal disease; I10 Essential (primary) hypertension; I48.91 Unspecified atrial fibrillation; Z01.810 Encounter for preprocedural cardiovascular examination
CPT/HCPCS: 36415; 80053; 83036; 84134; 85025; 85651; 86140; 87071; 87075; 87186; 87205

== ENCOUNTER → 2022-06-11 | Outpatient (CLI) | payer MEDICARE ==
[~2022-06-11] MED LIST changes: -COLLAGENASE OINTMENT 30 GM TUBE ONE; -LIDOCAINE VISC 2% SOLN 15 ML UDC ONE
== END ==
LOC: CARD 08:35
PROVIDERS: ATTEND Podiatrist
DX: E11.621 Type 2 diabetes mellitus with foot ulcer (principal); L97.518 Non-pressure chronic ulcer of other part of right foot with other specified severity
CPT/HCPCS: 93922; 93926

== ENCOUNTER → 2022-07-08 | Outpatient (RCR) | payer MEDICARE ==
[~2022-07-08] MED LIST changes: +COLLAGENASE OINTMENT 30 GM TUBE ONE; +GENTAMICIN SULFATE 15 GM CR TP ONE; +LIDOCAINE VISC 2% SOLN 15 ML UDC ONE; +LIDOCAINE/PRILOCAINE 2.5-2.5% KIT ONE; +MUPIROCIN 2% OINT 22 GM TUBE ONE
== END ==
LOC: WCC 06-08 15:21
PROVIDERS: ATTEND Internal Medicine Infectious Disease
DX: E11.621 Type 2 diabetes mellitus with foot ulcer (principal); E11.59 Type 2 diabetes mellitus with other circulatory complications; I96 Gangrene, not elsewhere classified; R09.02 Hypoxemia; L97.518 Non-pressure chronic ulcer of other part of right foot with other specified severity; L97.426 Non-pressure chronic ulcer of left heel and midfoot with bone involvement without evidence of necrosis; I79.8 Other disorders of arteries, arterioles and capillaries in diseases classified elsewhere; N18.6 End stage renal disease; I10 Essential (primary) hypertension; I48.91 Unspecified atrial fibrillation; Z01.810 Encounter for preprocedural cardiovascular examination

== ENCOUNTER 2022-08-05 14:55 | Outpatient (RCR) | payer MEDICARE ==
[~2022-08-05 14:55] MED LIST changes: -GENTAMICIN SULFATE 15 GM CR TP ONE; -LIDOCAINE/PRILOCAINE 2.5-2.5% KIT ONE; +MINERAL OIL/PETROLAT/GLYCERI 6OZ BTL ONE; -MUPIROCIN 2% OINT 22 GM TUBE ONE
== END 2022-08-07 ==
LOC: WCC 14:55
PROVIDERS: ATTEND Podiatrist
DX: E11.621 Type 2 diabetes mellitus with foot ulcer (principal); E11.59 Type 2 diabetes mellitus with other circulatory complications; R09.02 Hypoxemia; I96 Gangrene, not elsewhere classified; L97.518 Non-pressure chronic ulcer of other part of right foot with other specified severity; I79.8 Other disorders of arteries, arterioles and capillaries in diseases classified elsewhere; N18.6 End stage renal disease; I10 Essential (primary) hypertension; I48.91 Unspecified atrial fibrillation; B96.89 Other specified bacterial agents as the cause of diseases classified elsewhere; Z01.810 Encounter for preprocedural cardiovascular examination

== ENCOUNTER → 2022-08-18 | Outpatient (CLI) | payer MEDICARE ==
[~2022-08-18] MED LIST changes: -COLLAGENASE OINTMENT 30 GM TUBE ONE; -LIDOCAINE VISC 2% SOLN 15 ML UDC ONE; -MINERAL OIL/PETROLAT/GLYCERI 6OZ BTL ONE
== END ==
LOC: RAD 12:54
PROVIDERS: ATTEND Family Medicine Adult Medicine
DX: E11.621 Type 2 diabetes mellitus with foot ulcer (principal); L97.518 Non-pressure chronic ulcer of other part of right foot with other specified severity
CPT/HCPCS: 71046

== ENCOUNTER → 2022-08-27 | Outpatient (CLI) | payer MEDICARE | LOC: RAD 08:13 | PROVIDERS: ATTEND Family Medicine Adult Medicine | DX: E11.621 Type 2 diabetes mellitus with foot ulcer (principal); L97.518 Non-pressure chronic ulcer of other part of right foot with other specified severity; R60.0 Localized edema | CPT/HCPCS: 93970 ==

== ENCOUNTER 2022-09-03 10:56 | Outpatient (RCR) | payer MEDICARE ==
[~2022-09-03 10:56] MED LIST changes: +LIDOCAINE VISC 2% SOLN 15 ML UDC ONE
== END 2022-09-07 ==
LOC: WCC 10:56
PROVIDERS: ATTEND Family Medicine Adult Medicine
DX: E11.621 Type 2 diabetes mellitus with foot ulcer (principal); E11.59 Type 2 diabetes mellitus with other circulatory complications; R09.02 Hypoxemia; I96 Gangrene, not elsewhere classified; L97.518 Non-pressure chronic ulcer of other part of right foot with other specified severity; I79.8 Other disorders of arteries, arterioles and capillaries in diseases classified elsewhere; R60.0 Localized edema; N18.6 End stage renal disease; I10 Essential (primary) hypertension; I48.91 Unspecified atrial fibrillation; Z01.810 Encounter for preprocedural cardiovascular examination
CPT/HCPCS: 93005

== ENCOUNTER 2022-09-30 10:48 | Outpatient (RCR) | payer MEDICARE ==
[2022-09-30] MEDS ORDERED: MINERAL OIL/PETROLAT/GLYCERI 6OZ BTL ONE (12:36)
[2022-09-30] MEDS ORDERED: LIDOCAINE VISC 2% SOLN 15 ML UDC ONE (12:36)
[2022-10-09] MEDS ORDERED: Benzonatate PO (14:40)
== END 2022-10-07 ==
LOC: WCC 10:48
PROVIDERS: ATTEND Family Medicine Adult Medicine
DX: E11.621 Type 2 diabetes mellitus with foot ulcer (principal); E11.59 Type 2 diabetes mellitus with other circulatory complications; I96 Gangrene, not elsewhere classified; R09.02 Hypoxemia; L97.518 Non-pressure chronic ulcer of other part of right foot with other specified severity; I87.2 Venous insufficiency (chronic) (peripheral); I79.8 Other disorders of arteries, arterioles and capillaries in diseases classified elsewhere; R60.0 Localized edema; N18.6 End stage renal disease; I10 Essential (primary) hypertension; I48.91 Unspecified atrial fibrillation; Z01.810 Encounter for preprocedural cardiovascular examination
CPT/HCPCS: 11042 ×4; 15275 ×2; 36415 ×6; 82948 ×6; 83036; 84134; 99213 ×5; 99214; G0277 ×6; Q4133 ×2

== ENCOUNTER 2022-10-04 09:36 | Inpatient (IN) | payer MEDICARE ==
[~2022-10-04] VITALS: Ht 172.7 cm; Wt 112.0 kg
[~2022-10-04 09:36] MED LIST changes: -LIDOCAINE VISC 2% SOLN 15 ML UDC ONE
[2022-10-04 10:09] LABS: BASOPHILS # (AUTO) 0.1 (0.0-0.1); BASOPHILS % 1.1 % (0.0-1.0); EOSINOPHILS # (AUTO) 0.4 (0.0-0.4); EOSINOPHILS % 5.3 % (0.0-6.0); HEMATOCRIT 40.2 % (38.2-49.6); HEMOGLOBIN 12.4 g/dL (14.0-18.0); LYMPHOCYTES # (AUTO) 0.5 (1.0-3.2); LYMPHOCYTES % 6.5 % (18.0-39.1); MEAN CORPUSCULAR HEMOGLOBIN 30.8 pg (28-32); MEAN CORPUSCULAR HGB CONC 30.8 g/dL (31-35); MONOCYTES # (AUTO) 0.5 (0.2-0.8); MONOCYTES % 6.4 % (4.4-11.3); NEUTROPHILS # (AUTO) 6.7 (2.1-6.9); NEUTROPHILS % 80.5 % (38.7-80.0); PLATELET COUNT 198 x10e3/uL (140-360); RED BLOOD COUNT 4.02 x10e6/uL (4.3-5.7); RED CELL DISTRIBUTION WIDTH 15.8 % (11.7-14.4)
[2022-10-04] MEDS ORDERED: CARVEDILOL 12.5 MG TAB PO ONE (10:10)
[2022-10-04] MEDS ORDERED: Morphine 2mg Syringe 2 MG/ML SYR IV ONE (10:15)
[2022-10-04 10:22] LABS: PARTIAL THROMBOPLASTIN TIME 27.3 seconds (23.8-35.5)
[2022-10-04 10:29] LABS: ALBUMIN 3.6 g/dL (3.5-5.0); ANION GAP 18.2 mmol/L (8-16); CALCIUM 8.4 mg/dL (8.4-10.2); CREATININE, SERUM 5.34 mg/dL (0.72-1.25); POTASSIUM 4.2 mmol/L (3.5-5.1)
[2022-10-04] MEDS ORDERED: NITROGLYCERIN 2% OINT 1 GM PKT TOP ONE (10:45)
[2022-10-04 10:49] LABS: INR 1.02; PROTHROMBIN TIME 14.2 seconds (11.9-14.5)
[2022-10-04] MEDS ORDERED: IOPAMIDOL 370 MG/ML 100 ML INFUS..BTL INJ ONE (11:12)
[2022-10-04] MEDS ORDERED: SODIUM CHLORIDE FLUSH 10 ML SYR INJ PRN (11:15)
[2022-10-04] MEDS ORDERED: ONDANSETRON HCL INJ 2MG/ML 2ML 2 MG/ML VIAL IV PRN ×2 (11:15→14:30)
[2022-10-04] MEDS ORDERED: ACETAMINOPHEN 325 MG TAB PO PRN (14:30)
[2022-10-04] MEDS ORDERED: DIPHENHYDRAMINE HCL 25 MG CAP PO PRN (14:30)
[2022-10-04] MEDS ORDERED: ALBUTEROL/IPRATROPIUM 3 ML NEB NEB PRN (14:30)
[2022-10-04] MEDS ORDERED: MELATONIN 5 MG TABLET PO PRN (14:30)
[2022-10-04] MEDS ORDERED: LIDOCAINE 4% PATCH TP PRN (14:30)
[2022-10-04] MEDS ORDERED: DEXTROSE 50% SYRINGE 50 ML IV PRN ×2 (14:30)
[2022-10-04] MEDS ORDERED: SIMETHICONE 80 MG CHEW PO PRN (14:30)
[2022-10-04] MEDS ORDERED: DOCUSATE SODIUM 100 MG CAP PO PRN (14:30)
[2022-10-04] MEDS ORDERED: HYDRALAZINE HCL 20 MG/ML VIAL IV PRN (14:30)
[2022-10-04 15:38] VITALS: BP 159/132
[2022-10-04 16:00] VITALS: BP 159/132
[2022-10-04 16:08] VITALS: BP 169/67
[2022-10-04] MEDS: AZITHROMYCIN 250 MG TAB PO SCH (18:36)
[2022-10-04] MEDS: CARVEDILOL 12.5 MG TAB PO SCH (18:53)
[2022-10-04] MEDS: INSULIN LISPRO 100 UNIT/1 ML 3ML VIAL SQ SCH ×2 (19:09→20:34)
[2022-10-04] MEDS: AMIODARONE HCL 200 MG TAB PO SCH (20:29)
[2022-10-04] MEDS ORDERED: DEXTROSE 50% SYRINGE 50 ML IV ONE (22:32)
[2022-10-05] VITALS (8 sets, daily range): BP systolic 125–165; BP diastolic 60–85
[2022-10-05 05:46] LABS: BASOPHILS # (AUTO) 0.1 (0.0-0.1); BASOPHILS % 0.9 % (0.0-1.0); EOSINOPHILS # (AUTO) 0.4 (0.0-0.4); EOSINOPHILS % 4.5 % (0.0-6.0); HEMOGLOBIN 10.8 g/dL (14.0-18.0); LYMPHOCYTES # (AUTO) 0.4 (1.0-3.2); LYMPHOCYTES % 5.5 % (18.0-39.1); MEAN CORPUSCULAR HEMOGLOBIN 30.7 pg (28-32); MEAN CORPUSCULAR HGB CONC 31.8 g/dL (31-35); MEAN CORPUSCULAR VOLUME 96.6 fL (81-99); MONOCYTES % 12.5 % (4.4-11.3); NEUTROPHILS # (AUTO) 6.2 (2.1-6.9); NEUTROPHILS % 76.4 % (38.7-80.0); PLATELET COUNT 170 x10e3/uL (140-360); RED BLOOD COUNT 3.52 x10e6/uL (4.3-5.7); RED CELL DISTRIBUTION WIDTH 16.1 % (11.7-14.4)
[2022-10-05 06:31] LABS: ANION GAP 18.7 mmol/L (8-16); CALCIUM 8.1 mg/dL (8.4-10.2); CREATININE, SERUM 4.62 mg/dL (0.72-1.25); POTASSIUM 3.7 mmol/L (3.5-5.1)
[2022-10-05] MEDS: INSULIN LISPRO 100 UNIT/1 ML 3ML VIAL SQ SCH ×4 (07:30→21:00)
[2022-10-05] MEDS ORDERED: SODIUM CHLORIDE 0.9% 1000ML 2,000 ML ONE (07:54)
[2022-10-05] MEDS: PANTOPRAZOLE SOD 40 MG TABEC PO SCH (08:53)
[2022-10-05] MEDS: ASPIRIN 81 MG CHEW TAB PO SCH (08:53)
[2022-10-05] MEDS: AZITHROMYCIN 250 MG TAB PO SCH (08:53)
[2022-10-05] MEDS: CYANOCOBALAMIN 1,000 MCG TAB PO SCH (08:53)
[2022-10-05] MEDS: CARVEDILOL 12.5 MG TAB PO SCH ×2 (08:54→17:05)
[2022-10-05] MEDS: BENZONATATE 100 MG CAP PO PRN (08:58)
[2022-10-05] MEDS ORDERED: NPH, HUMAN INSULIN ISOPHANE 100 UNIT/1 ML 3ML VIAL SQ SCH (09:00)
[2022-10-05] MEDS: ALBUTEROL/IPRATROPIUM 3 ML NEB NEB SCH ×2 (16:10→19:20)
[2022-10-05] MEDS: AMIODARONE HCL 200 MG TAB PO SCH ×2 (21:00→23:55)
[2022-10-06] VITALS (7 sets, daily range): BP systolic 113–167; BP diastolic 59–71
[2022-10-06] MEDS: ALBUTEROL/IPRATROPIUM 3 ML NEB NEB SCH ×4 (01:07→18:30)
[2022-10-06] MEDS: INSULIN LISPRO 100 UNIT/1 ML 3ML VIAL SQ SCH ×4 (08:00→22:00)
[2022-10-06] MEDS: CYANOCOBALAMIN 1,000 MCG TAB PO SCH (08:26)
[2022-10-06] MEDS: PANTOPRAZOLE SOD 40 MG TABEC PO SCH (08:27)
[2022-10-06] MEDS: AZITHROMYCIN 250 MG TAB PO SCH (08:27)
[2022-10-06] MEDS: CARVEDILOL 12.5 MG TAB PO SCH ×2 (08:27→17:00)
[2022-10-06] MEDS: ASPIRIN 81 MG CHEW TAB PO SCH (08:27)
[2022-10-06 15:53] LABS: BODY FLUID APPEARANCE SL.CLOUDY; BODY FLUID COLOR STRAW; BODY FLUID TYPE PLEURAL; WBC,BODY FLUID 456 cells/uL
[2022-10-06 17:18] LABS: LYMPHOCYTES,BODY FLUID 15 %; MONO/MACROPHG,BODY FLUID 70 %; NEUTROPHILS,BODY FLUID 4 %
[2022-10-06 17:19] LABS: OTHER CELLS,BODY FLUID 11 %
[2022-10-06 19:06] LABS: RBC,BODY FLUID 10000 cells/uL
[2022-10-06] MEDS: AMIODARONE HCL 200 MG TAB PO SCH (21:53)
[2022-10-07] VITALS (8 sets, daily range): BP systolic 90–153; BP diastolic 53–71
[2022-10-07] MEDS: BENZONATATE 100 MG CAP PO PRN ×2 (00:01→21:20)
[2022-10-07] MEDS: ALBUTEROL/IPRATROPIUM 3 ML NEB NEB SCH ×4 (00:15→19:18)
[2022-10-07] MEDS: INSULIN LISPRO 100 UNIT/1 ML 3ML VIAL SQ SCH ×4 (07:30→21:09)
[2022-10-07 12:06] LABS: ALBUMIN/GLOBULIN RATIO 0.9 (0.8-2.0); CALCIUM 7.8 mg/dL (8.4-10.2); CREATININE, SERUM 6.36 mg/dL (0.72-1.25)
[2022-10-07] MEDS: CYANOCOBALAMIN 1,000 MCG TAB PO SCH (12:32)
[2022-10-07] MEDS: AZITHROMYCIN 250 MG TAB PO SCH (12:32)
[2022-10-07] MEDS: CARVEDILOL 12.5 MG TAB PO SCH ×2 (12:32→18:09)
[2022-10-07] MEDS: PANTOPRAZOLE SOD 40 MG TABEC PO SCH (12:32)
[2022-10-07] MEDS: ASPIRIN 81 MG CHEW TAB PO SCH (12:35)
[2022-10-07] MEDS: SEVELAMER CARBONATE 800 MG TAB PO SCH ×2 (12:48→18:09)
[2022-10-07] MEDS ORDERED: ONDANSETRON HCL 4 MG ORAL DISINTEGRATING TAB PO PRN (13:00)
[2022-10-07] MEDS ORDERED: SODIUM CHLORIDE 0.9% 1000ML 2,000 ML ONE (13:38)
[2022-10-07] MEDS: AMIODARONE HCL 200 MG TAB PO SCH (21:11)
[2022-10-08] VITALS (7 sets, daily range): BP systolic 124–148; BP diastolic 40–81
[2022-10-08] MEDS: ALBUTEROL/IPRATROPIUM 3 ML NEB NEB SCH ×4 (01:30→19:15)
[2022-10-08] MEDS: INSULIN LISPRO 100 UNIT/1 ML 3ML VIAL SQ SCH ×4 (07:30→21:00)
[2022-10-08] MEDS: SEVELAMER CARBONATE 800 MG TAB PO SCH ×3 (12:00→17:16)
[2022-10-08] MEDS: CYANOCOBALAMIN 1,000 MCG TAB PO SCH (12:50)
[2022-10-08] MEDS: AZITHROMYCIN 250 MG TAB PO SCH (12:50)
[2022-10-08] MEDS: PANTOPRAZOLE SOD 40 MG TABEC PO SCH (12:51)
[2022-10-08] MEDS: ASPIRIN 81 MG CHEW TAB PO SCH (12:51)
[2022-10-08] MEDS: CARVEDILOL 12.5 MG TAB PO SCH ×2 (12:54→17:16)
[2022-10-08] MEDS: BENZONATATE 100 MG CAP PO PRN ×2 (14:22→22:07)
[2022-10-08] MEDS: AMIODARONE HCL 200 MG TAB PO SCH (21:00)
[2022-10-09 01:12] VITALS: BP 145/66
[2022-10-09] MEDS: ALBUTEROL/IPRATROPIUM 3 ML NEB NEB SCH ×3 (01:40→12:45)
[2022-10-09 04:34] VITALS: BP 130/57
[2022-10-09 05:52] LABS: BASOPHILS # (AUTO) 0.1 (0.0-0.1); BASOPHILS % 1.1 % (0.0-1.0); EOSINOPHILS # (AUTO) 0.4 (0.0-0.4); EOSINOPHILS % 7.7 % (0.0-6.0); HEMATOCRIT 35.5 % (38.2-49.6); HEMOGLOBIN 10.8 g/dL (14.0-18.0); LYMPHOCYTES # (AUTO) 0.7 (1.0-3.2); LYMPHOCYTES % 12.1 % (18.0-39.1); MEAN CORPUSCULAR HEMOGLOBIN 30.2 pg (28-32); MEAN CORPUSCULAR HGB CONC 30.4 g/dL (31-35); MEAN CORPUSCULAR VOLUME 99.2 fL (81-99); MONOCYTES # (AUTO) 0.6 (0.2-0.8); MONOCYTES % 10.3 % (4.4-11.3); NEUTROPHILS # (AUTO) 3.7 (2.1-6.9); NEUTROPHILS % 68.6 % (38.7-80.0); PLATELET COUNT 205 x10e3/uL (140-360); RED BLOOD COUNT 3.58 x10e6/uL (4.3-5.7); RED CELL DISTRIBUTION WIDTH 14.8 % (11.7-14.4)
[2022-10-09 06:30] LABS: ANION GAP 15.7 mmol/L (8-16); CALCIUM 7.7 mg/dL (8.4-10.2); CREATININE, SERUM 5.75 mg/dL (0.72-1.25); POTASSIUM 3.7 mmol/L (3.5-5.1)
[2022-10-09] MEDS: INSULIN LISPRO 100 UNIT/1 ML 3ML VIAL SQ SCH ×3 (07:30→16:30)
[2022-10-09 08:27] VITALS: BP 163/64
[2022-10-09] MEDS: AZITHROMYCIN 250 MG TAB PO SCH (08:46)
[2022-10-09] MEDS: ASPIRIN 81 MG CHEW TAB PO SCH (08:46)
[2022-10-09] MEDS: SEVELAMER CARBONATE 800 MG TAB PO SCH ×3 (08:47→16:54)
[2022-10-09] MEDS: PANTOPRAZOLE SOD 40 MG TABEC PO SCH (08:47)
[2022-10-09] MEDS: CARVEDILOL 12.5 MG TAB PO SCH ×2 (08:47→16:54)
[2022-10-09] MEDS: CYANOCOBALAMIN 1,000 MCG TAB PO SCH (08:47)
[2022-10-09] MEDS: BENZONATATE 100 MG CAP PO PRN (08:50)
[2022-10-09 08:57] VITALS: BP 163/64
[2022-10-09 12:03] VITALS: BP 144/75
[2022-10-09] MEDS ORDERED: Benzonatate PO (14:40)
[2022-10-09] MEDS ORDERED: SODIUM CHLORIDE 0.9% 1000ML 2,000 ML ONE (14:46)
[2022-10-09 16:39] VITALS: BP 115/55
== END 2022-10-09 19:48 | disposition home or self-care (01) | DRG 193 ==
LOC: ER 09:38 → ERHOLD 11:18 → MED/SURG2 14:27
PROVIDERS: ADMIT Internal Medicine; ATTEND Internal Medicine
PROC: 5A1D70Z Performance of Urinary Filtration, Intermittent, Less than 6 Hours Per Day (ICD-10-PCS; 2022-10-04)
PROC: 0W993ZZ Drainage of Right Pleural Cavity, Percutaneous Approach (ICD-10-PCS; principal; 2022-10-06)
DX: J18.9 Pneumonia, unspecified organism (principal); J96.01 Acute respiratory failure with hypoxia; N18.6 End stage renal disease; I13.2 Hypertensive heart and chronic kidney disease with heart failure and with stage 5 chronic kidney disease, or end stage renal disease; N25.81 Secondary hyperparathyroidism of renal origin; I48.20 Chronic atrial fibrillation, unspecified; D63.1 Anemia in chronic kidney disease; E11.22 Type 2 diabetes mellitus with diabetic chronic kidney disease; I50.9 Heart failure, unspecified; B96.20 Unspecified Escherichia coli [E. coli] as the cause of diseases classified elsewhere; I25.10 Atherosclerotic heart disease of native coronary artery without angina pectoris; E66.9 Obesity, unspecified; E78.5 Hyperlipidemia, unspecified; Z95.820 Peripheral vascular angioplasty status with implants and grafts; Z83.3 Family history of diabetes mellitus; Z82.49 Family history of ischemic heart disease and other diseases of the circulatory system; Z99.2 Dependence on renal dialysis; Z85.528 Personal history of other malignant neoplasm of kidney; Z90.5 Acquired absence of kidney; Z88.8 Allergy status to other drugs, medicaments and biological substances; Z68.37 Body mass index [BMI] 37.0-37.9, adult; Z79.82 Long term (current) use of aspirin; Z79.4 Long term (current) use of insulin; Z20.822 Contact with and (suspected) exposure to COVID-19
CPT/HCPCS: 32555; 36415; 71045; 71260; 74470; 76604; 80048; 80053; 82945; 82948; 83615; 84157; 84484; 85025; 85610; 85730; 86706; 87070; 87116; 87186; 87205; 87206; 87340; 87400; 89051; 93005; 94640; 94799; 99251; 99284; J0696; J2270; J7030; J7799; Q9967

== ENCOUNTER 2022-11-05 13:41 | Outpatient (RCR) | payer MEDICARE ==
[~2022-11-05 13:41] MED LIST changes: +Benzonatate PO; +LIDOCAINE VISC 2% SOLN 15 ML UDC ONE; +MEPERIDINE HCL INJ 25 MG/ML VIAL ONE
== END 2022-11-07 ==
LOC: WCC 13:41
PROVIDERS: ATTEND Family Medicine Adult Medicine
DX: E11.621 Type 2 diabetes mellitus with foot ulcer (principal); E11.59 Type 2 diabetes mellitus with other circulatory complications; L97.518 Non-pressure chronic ulcer of other part of right foot with other specified severity; I96 Gangrene, not elsewhere classified; R60.0 Localized edema; I10 Essential (primary) hypertension; I48.91 Unspecified atrial fibrillation; I79.8 Other disorders of arteries, arterioles and capillaries in diseases classified elsewhere; I87.2 Venous insufficiency (chronic) (peripheral); N18.6 End stage renal disease; R09.02 Hypoxemia; Z01.810 Encounter for preprocedural cardiovascular examination
CPT/HCPCS: 11042 ×2; 15275 ×2; 36415 ×8; 82948 ×8; 99212; 99213 ×6; 99214; G0277 ×8; J2175; Q4133 ×2

== ENCOUNTER 2022-12-03 14:16 | Outpatient (RCR) | payer MEDICARE ==
[~2022-12-03 14:16] MED LIST changes: +LIDOCAINE/PRILOCAINE 2.5-2.5% KIT ONE; -MEPERIDINE HCL INJ 25 MG/ML VIAL ONE; +MINERAL OIL/PETROLAT/GLYCERI 6OZ BTL ONE
== END 2022-12-08 ==
LOC: WCC 14:16
PROVIDERS: ATTEND Family Medicine Adult Medicine
DX: E11.621 Type 2 diabetes mellitus with foot ulcer (principal); E11.59 Type 2 diabetes mellitus with other circulatory complications; R09.02 Hypoxemia; I96 Gangrene, not elsewhere classified; L97.518 Non-pressure chronic ulcer of other part of right foot with other specified severity; I79.8 Other disorders of arteries, arterioles and capillaries in diseases classified elsewhere; I87.2 Venous insufficiency (chronic) (peripheral); R60.0 Localized edema; N18.6 End stage renal disease; I10 Essential (primary) hypertension; I48.91 Unspecified atrial fibrillation; Z01.810 Encounter for preprocedural cardiovascular examination
CPT/HCPCS: 11042 ×4; 36415 ×6; 82948 ×6; 99213 ×5; G0277 ×6

== ENCOUNTER 2022-12-31 17:16 | Inpatient (IN) | payer MEDICARE ==
[~2022-12-31] VITALS: Ht 172.7 cm; Wt 112.0 kg
[~2022-12-31 17:16] MED LIST changes: -LIDOCAINE VISC 2% SOLN 15 ML UDC ONE; -LIDOCAINE/PRILOCAINE 2.5-2.5% KIT ONE; -MINERAL OIL/PETROLAT/GLYCERI 6OZ BTL ONE
[2022-12-31 18:33] LABS: BASOPHILS # (AUTO) 0.1 (0.0-0.1); BASOPHILS % 1.9 % (0.0-1.0); EOSINOPHILS # (AUTO) 0.4 (0.0-0.4); EOSINOPHILS % 6.5 % (0.0-6.0); HEMATOCRIT 32.9 % (38.2-49.6); INR 0.95; LYMPHOCYTES # (AUTO) 0.8 (1.0-3.2); LYMPHOCYTES % 14.8 % (18.0-39.1); MEAN CORPUSCULAR HEMOGLOBIN 32.5 pg (28-32); MEAN CORPUSCULAR HGB CONC 33.4 g/dL (31-35); MEAN CORPUSCULAR VOLUME 97.3 fL (81-99); MONOCYTES # (AUTO) 0.7 (0.2-0.8); MONOCYTES % 11.4 % (4.4-11.3); NEUTROPHILS # (AUTO) 3.7 (2.1-6.9); NEUTROPHILS % 65.2 % (38.7-80.0); PLATELET COUNT 239 x10e3/uL (140-360); PROTHROMBIN TIME 12.9 seconds (11.9-14.5); RED BLOOD COUNT 3.38 x10e6/uL (4.3-5.7)
[2022-12-31 18:34] LABS: PARTIAL THROMBOPLASTIN TIME 28.2 seconds (23.8-35.5)
[2022-12-31 18:40] LABS: ALBUMIN 3.1 g/dL (3.5-5.0); ALBUMIN/GLOBULIN RATIO 0.8 (0.8-2.0); ANION GAP 17.6 mmol/L (8-16); CALCIUM 8.1 mg/dL (8.4-10.2); CREATININE, SERUM 5.13 mg/dL (0.72-1.25); MAGNESIUM 2.2 MG/DL (1.3-2.1); POTASSIUM 4.6 mmol/L (3.5-5.1)
[2022-12-31] MEDS ORDERED: DEXTROSE 5% 1,000 ML IV ONE (18:45)
[2022-12-31 18:46] LABS: CREATINE KINASE MB 2.6 ng/mL (0-5.0)
[2022-12-31] MEDS ORDERED: DEXTROSE 10% 1,000 ML IV ONE (20:00)
[2022-12-31] MEDS ORDERED: DEXTROSE 50% SYRINGE 50 ML IV PRN ×2 (20:00→23:30)
[2022-12-31] MEDS ORDERED: ONDANSETRON HCL INJ 2MG/ML 2ML 2 MG/ML VIAL IV PRN (20:00)
[2022-12-31] MEDS: INSULIN REGULAR, HUMAN 100 UNIT/1 ML SQ SCH (20:18)
[2022-12-31] MEDS ORDERED: SIMETHICONE 80 MG CHEW PO PRN (23:30)
[2022-12-31] MEDS ORDERED: DIPHENHYDRAMINE HCL 25 MG CAP PO PRN (23:30)
[2022-12-31] MEDS ORDERED: BENZONATATE 100 MG CAP PO PRN (23:30)
[2022-12-31] MEDS ORDERED: MELATONIN 5 MG TABLET PO PRN (23:30)
[2022-12-31] MEDS ORDERED: HYDRALAZINE HCL 20 MG/ML VIAL IV PRN (23:30)
[2022-12-31] MEDS ORDERED: LIDOCAINE 4% PATCH TP PRN (23:30)
[2022-12-31] MEDS ORDERED: ALBUTEROL/IPRATROPIUM 3 ML NEB NEB PRN (23:30)
[2022-12-31] MEDS ORDERED: ACETAMINOPHEN 325 MG TAB PO PRN (23:30)
[2022-12-31] MEDS ORDERED: DOCUSATE SODIUM 100 MG CAP PO PRN (23:30)
[2023-01-01] VITALS (25 sets, daily range): BP systolic 49–179; BP diastolic 42–81
[2023-01-01 04:53] LABS: BASOPHILS # (AUTO) 0.1 (0.0-0.1); BASOPHILS % 1.6 % (0.0-1.0); EOSINOPHILS # (AUTO) 0.4 (0.0-0.4); EOSINOPHILS % 6.5 % (0.0-6.0); HEMATOCRIT 33.1 % (38.2-49.6); LYMPHOCYTES # (AUTO) 0.9 (1.0-3.2); LYMPHOCYTES % 14.2 % (18.0-39.1); MEAN CORPUSCULAR HEMOGLOBIN 32.3 pg (28-32); MEAN CORPUSCULAR HGB CONC 33.2 g/dL (31-35); MEAN CORPUSCULAR VOLUME 97.1 fL (81-99); MONOCYTES % 16.5 % (4.4-11.3); NEUTROPHILS # (AUTO) 3.8 (2.1-6.9); NEUTROPHILS % 60.9 % (38.7-80.0); PLATELET COUNT 209 x10e3/uL (140-360); RED BLOOD COUNT 3.41 x10e6/uL (4.3-5.7); RED CELL DISTRIBUTION WIDTH 13.5 % (11.7-14.4)
[2023-01-01 05:13] LABS: ALBUMIN 2.8 g/dL (3.5-5.0); ALBUMIN/GLOBULIN RATIO 0.8 (0.8-2.0); ANION GAP 14.7 mmol/L (8-16); CALCIUM 8.2 mg/dL (8.4-10.2); CREATININE, SERUM 5.58 mg/dL (0.72-1.25); POTASSIUM 4.7 mmol/L (3.5-5.1)
[2023-01-01 05:31] LABS: CHOL/HDL RATIO 3.1 (3.9-4.7); MAGNESIUM 2.2 MG/DL (1.3-2.1); PHOSPHORUS 3.2 MG/DL (2.3-4.7)
[2023-01-01 05:51] LABS: THYROID STIMULATING HORMONE 4.502 uIU/mL (0.350-4.940)
[2023-01-01] MEDS: INSULIN REGULAR, HUMAN 100 UNIT/1 ML SQ SCH ×4 (07:30→20:41)
[2023-01-01] MEDS: PANTOPRAZOLE SOD 40 MG TABEC PO SCH (08:00)
[2023-01-01] MEDS: CARVEDILOL 12.5 MG TAB PO SCH ×2 (08:01→17:00)
[2023-01-01] MEDS ORDERED: SODIUM CHLORIDE 0.9% 1000ML 1,000 ML ONE (14:53)
[2023-01-01] MEDS ORDERED: SODIUM CHLORIDE 0.9% 250ML 250 ML ONE (15:35)
[2023-01-01] MEDS ORDERED: ALBUMIN 25% 12.5GM 50ML 150 ML IV ONE (16:20)
[2023-01-01] MEDS ORDERED: AMIODARONE HCL 200 MG TAB PO SCH (21:00)
[2023-01-02] VITALS (26 sets, daily range): BP systolic 117–200; BP diastolic 54–113
[2023-01-02 06:18] LABS: BASOPHILS # (AUTO) 0.1 (0.0-0.1); BASOPHILS % 1.2 % (0.0-1.0); EOSINOPHILS # (AUTO) 0.3 (0.0-0.4); EOSINOPHILS % 5.3 % (0.0-6.0); HEMATOCRIT 33.9 % (38.2-49.6); HEMOGLOBIN 11.2 g/dL (14.0-18.0); LYMPHOCYTES # (AUTO) 0.6 (1.0-3.2); LYMPHOCYTES % 10.5 % (18.0-39.1); MEAN CORPUSCULAR HEMOGLOBIN 31.9 pg (28-32); MEAN CORPUSCULAR VOLUME 96.6 fL (81-99); MONOCYTES # (AUTO) 0.6 (0.2-0.8); MONOCYTES % 10.5 % (4.4-11.3); NEUTROPHILS # (AUTO) 4.3 (2.1-6.9); NEUTROPHILS % 72.3 % (38.7-80.0); PLATELET COUNT 201 x10e3/uL (140-360); RED BLOOD COUNT 3.51 x10e6/uL (4.3-5.7); RED CELL DISTRIBUTION WIDTH 13.8 % (11.7-14.4)
[2023-01-02 06:51] LABS: ALBUMIN 3.2 g/dL (3.5-5.0); ALBUMIN/GLOBULIN RATIO 0.9 (0.8-2.0); ANION GAP 10.9 mmol/L (8-16); CALCIUM 8.4 mg/dL (8.4-10.2); CREATININE, SERUM 3.83 mg/dL (0.72-1.25); POTASSIUM 4.9 mmol/L (3.5-5.1)
[2023-01-02] MEDS: INSULIN REGULAR, HUMAN 100 UNIT/1 ML SQ SCH ×2 (07:30→11:30)
[2023-01-02] MEDS: PANTOPRAZOLE SOD 40 MG TABEC PO SCH (08:56)
[2023-01-02] MEDS ORDERED: BALSAM PERU/CASTOR OIL 60 GM OINT...G. TP SCH (09:00)
[2023-01-02] MEDS ORDERED: ASPIRIN 81 MG CHEW TAB PO SCH (09:00)
[2023-01-02] MEDS: CARVEDILOL 12.5 MG TAB PO SCH ×2 (09:00→14:38)
[2023-01-02] MEDS ORDERED: CLOPIDOGREL BISULFATE 75 MG TAB PO SCH (09:00)
[2023-01-02] MEDS ORDERED: SODIUM CHLORIDE 0.9% 1000ML 1,000 ML ONE (10:53)
== END 2023-01-02 15:29 | disposition home or self-care (01) | DRG 638 ==
LOC: ER 17:45 → ERHOLD 19:58 → ICU 23:50
PROVIDERS: ADMIT Internal Medicine; ATTEND Internal Medicine
DX: E11.649 Type 2 diabetes mellitus with hypoglycemia without coma (principal); I12.0 Hypertensive chronic kidney disease with stage 5 chronic kidney disease or end stage renal disease; I48.20 Chronic atrial fibrillation, unspecified; E11.22 Type 2 diabetes mellitus with diabetic chronic kidney disease; N18.6 End stage renal disease; D63.1 Anemia in chronic kidney disease; E11.51 Type 2 diabetes mellitus with diabetic peripheral angiopathy without gangrene; Z79.4 Long term (current) use of insulin; Z20.822 Contact with and (suspected) exposure to COVID-19; Z99.2 Dependence on renal dialysis; Z85.528 Personal history of other malignant neoplasm of kidney; Z79.82 Long term (current) use of aspirin; Z79.02 Long term (current) use of antithrombotics/antiplatelets
CPT/HCPCS: 0223U; 36415; 71045; 80053; 80061; 82550; 82553; 82948; 83036; 83735; 84100; 84443; 84484; 85025; 85610; 85730; 86704; 86705; 86706; 93005; 94799; 99252; 99284; J0360; J7030; J7050; J7070

== ENCOUNTER → 2023-01-05 | Outpatient (RCR) | payer MEDICARE ==
[~2023-01-05] MED LIST changes: +LIDOCAINE VISC 2% SOLN 15 ML UDC ONE; +MINERAL OIL/PETROLAT/GLYCERI 6OZ BTL ONE; +MUPIROCIN 2% OINT 22 GM TUBE ONE
== END ==
LOC: WCC 12-10 12:25
PROVIDERS: ATTEND Family Medicine Adult Medicine
DX: E11.621 Type 2 diabetes mellitus with foot ulcer (principal); L97.518 Non-pressure chronic ulcer of other part of right foot with other specified severity
CPT/HCPCS: 10140; 11042 ×3; 11055; 36415 ×2; 82948 ×2; 87071; 87075; 87205; 99213 ×7; G0277 ×2

== ENCOUNTER → 2023-02-16 | Outpatient (CLI) | payer MEDICARE ==
[~2023-02-16] MED LIST changes: -LIDOCAINE VISC 2% SOLN 15 ML UDC ONE; -MINERAL OIL/PETROLAT/GLYCERI 6OZ BTL ONE; -MUPIROCIN 2% OINT 22 GM TUBE ONE
== END ==
LOC: MRI 02-10 10:42
PROVIDERS: ATTEND Family Medicine Adult Medicine
DX: E11.621 Type 2 diabetes mellitus with foot ulcer (principal); L97.516 Non-pressure chronic ulcer of other part of right foot with bone involvement without evidence of necrosis; R60.0 Localized edema; B95.7 Other staphylococcus as the cause of diseases classified elsewhere
CPT/HCPCS: 71046; 93005

== ENCOUNTER 2023-03-04 11:59 | Outpatient (RCR) | payer MEDICARE ==
[~2023-03-04 11:59] MED LIST changes: +GENTAMICIN SULFATE 15 GM CR TP ONE; +LIDOCAINE VISC 2% SOLN 15 ML UDC ONE; +MINERAL OIL/PETROLAT/GLYCERI 6OZ BTL ONE
[2023-03-04] MEDS ORDERED: LIDOCAINE VISC 2% SOLN 15 ML UDC ONE (12:42)
== END 2023-03-07 ==
LOC: WCC 11:59
PROVIDERS: ATTEND Family Medicine Adult Medicine
DX: E11.621 Type 2 diabetes mellitus with foot ulcer (principal); L97.516 Non-pressure chronic ulcer of other part of right foot with bone involvement without evidence of necrosis; R60.0 Localized edema; B95.7 Other staphylococcus as the cause of diseases classified elsewhere
CPT/HCPCS: 11042 ×4; 36415 ×4; 82948 ×4; 84134; 99213 ×7; G0277 ×3

== ENCOUNTER 2023-04-06 09:39 | Outpatient (RCR) | payer MEDICARE ==
[~2023-04-06 09:39] MED LIST changes: -GENTAMICIN SULFATE 15 GM CR TP ONE; +LIDOCAINE/PRILOCAINE 2.5-2.5% KIT ONE
[2023-04-06] MEDS ORDERED: MINERAL OIL/PETROLAT/GLYCERI 2OZ CRM ONE (13:42)
== END 2023-04-07 ==
LOC: WCC 09:39
PROVIDERS: ATTEND Family Medicine Adult Medicine
DX: E11.621 Type 2 diabetes mellitus with foot ulcer (principal); M86.171 Other acute osteomyelitis, right ankle and foot; L97.516 Non-pressure chronic ulcer of other part of right foot with bone involvement without evidence of necrosis; R60.0 Localized edema; B95.7 Other staphylococcus as the cause of diseases classified elsewhere
CPT/HCPCS: 11042 ×4; 36415 ×9; 82948 ×9; 87071 ×2; 87075 ×2; 87205 ×2; 88305; 88311; 99213 ×9; G0277 ×11; 88304